=== PATIENT | female | born 1990 | race Caucasian/White ===

== ENCOUNTER 2017-03-18 20:26 | Emergency (ER) | payer MEDICAID, OTHER ==
[~2017-03-18] VITALS: Ht 157.5 cm; Wt 131.5 kg
[2017-03-18 20:30] VITALS: BP 120/99
[2017-03-18] MEDS ORDERED: AMMONIA INHALATION 0.33 ML AMP ONE (20:46)
[2017-03-18 21:08] LABS: BASOPHILS # (AUTO) 0.1 10^3/uL (0.0-0.1); BASOPHILS % (AUTO) 1 % (0-10); EOSINOPHILS # (AUTO) 0.3 10^3/uL (0.0-0.3); EOSINOPHILS % (AUTO) 2 % (0-10); LYMPHOCYTES # (AUTO) 2.8 X 10^3 (1.0-4.0); LYMPHOCYTES % (AUTO) 23 % (12-44); MEAN CORPUSCULAR HEMOGLOBIN 32 PG (25-34); MEAN CORPUSCULAR HGB CONC 34 G/DL (32-36); MEAN CORPUSCULAR VOLUME 93 FL (80-99); MEAN PLATELET VOLUME 10.3 FL (7.4-10.4); MONOCYTES # (AUTO) 1.1 X 10^3 (0.0-1.0); MONOCYTES % (AUTO) 9 % (0-12); NEUTROPHILS # (AUTO) 8.2 X 10^3 (1.8-7.8); NEUTROPHILS % (AUTO) 66 % (42-75); PLATELET COUNT 276 10^3/uL (130-400); RED CELL DISTRIBUTION WIDTH 12.1 % (10.0-14.5); WHITE BLOOD COUNT 12.3 10^3/uL (4.3-11.0)
[2017-03-18 21:10] LABS: BILIRUBIN,URINE NEGATIVE (NEGATIVE); KETONES,URINE 1+ (NEGATIVE); LEUKOCYTE ESTERASE ,URINE 1+ (NEGATIVE); NITRITE,URINE NEGATIVE (NEGATIVE); PH,URINE 6 (5-9); PROTEIN,URINE NEGATIVE (NEGATIVE); UROBILINOGEN,URINE 1 MG/DL (NORMAL)
[2017-03-18 21:27] LABS: ANION GAP 14 MMOL/L (5-14); BLOOD UREA NITROGEN 15 MG/DL (7-18); CARBON DIOXIDE 21 MMOL/L (21-32); CHLORIDE 106 MMOL/L (98-107); CREATININE SERUM 0.78 MG/DL (0.60-1.30); POTASSIUM 3.7 MMOL/L (3.6-5.0); SODIUM 141 MMOL/L (135-145)
[2017-03-18 21:28] LABS: ALANINE AMINOTRANSFERASE 23 U/L (0-55); ALCOHOL < 10 MG/DL (<10); ASPARTATE AMINO TRANSFERASE 13 U/L (5-34); BILIRUBIN,TOTAL 0.3 MG/DL (0.1-1.0); BUN/CREATININE RATIO 19; CALCIUM 9.2 MG/DL (8.5-10.1); GFR ESTIMATED > 60; GLUCOSE 98 MG/DL (70-105); SALICYLATE < 5.0 MG/DL (5.0-20.0); TOTAL PROTEIN 7.2 GM/DL (6.4-8.2)
[2017-03-18 21:40] LABS: ACETAMINOPHEN < 10 UG/ML (10-30)
--- NOTE | 2017-03-18 21:40 | ED General ---
General Chief Complaint: General Problems/Pain Stated Complaint: SEIZURE Nursing Triage Note: PT BROUGHT IN BY [facility] WITH C/O SEIZURE LIKE ACTIVITY. PT STATES SHE HAS NOT EVER BEEN DX WITH SEIZURE DISORDER. SHE DOES NOT TAKE SEIZURE MEDS. PT IS A&O X 4 UPON ARRIVAL AND DOES NOT APPEAR TO BE POSTICTAL AT THIS TIME. Nursing Sepsis Screen: No Definite Risk History of Present Illness Time Seen by Provider: 20:30 Initial Comments 27-year-old female reports possible seizure activity 4 today at home. She states she becomes unresponsive and then her does a sternal rub and she is able to wake up. She is being worked up by her primary care provider for seizure disorder versus other causes. She reports she was taking phentermine for 2 months this fall, she stopped it approximately 3-4 weeks ago. She denies alcohol or drug use. 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 Timing/Duration: 4-6 Hours Modifying Factors: improves with Other (stimulation) Associated Systoms: Denies Symptoms Allergies and Home Medications Allergies Coded Allergies: No Known Drug Allergies (Unverified , 03/18/17) Constitutional: no symptoms reported, see HPI Psychiatric/Neurological: See HPI, Tremors, Weakness All Other Systems Reviewed Negative Unless Noted: Yes Past Iwcgjoo-Exhakm-Cjogjh Hx Patient Social History Alcohol Use: Occasionally Uses Recreational Drug Use: No Smoking Status: Current Everyday Smoker Type Used: Cigarettes 2nd Hand Smoke Exposure: Yes Recent Foreign Travel: No Contact w/Someone Who Travel: No Recent Infectious Disease Expo: No Recent Hopitalizations: No Physical Abuse: No Sexual Abuse: No Seasonal Allergies Seasonal Allergies: No Surgeries History of Surgeries: Yes Surgeries: Gallbladder, Orthopedic Psychosocial Suicide Risk Score: 0 Reviewed Nursing Assessment Reviewed/Agree w Nursing PMH: Yes Physical Exam Vital Signs Vital Sign - Last 12Hours 03/18/17 20:30 Temp 96.4 Pulse 103 Resp 20 B/P (MAP) 120/99 (106) Pulse Ox 98 O2 Delivery Room Air Capillary Refill : Less Than 3 Seconds General Appearance: No Apparent Distress, WD/WN Eyes: Bilateral Eye Normal Inspection, Bilateral Eye PERRL, Bilateral Eye EOMI HEENT: PERRL/EOMI, TMs Normal, Normal ENT Inspection, Pharynx Normal Neck: Full Range of Motion, Normal Inspection, Non Tender, Supple Respiratory: Chest Non Tender, Lungs Clear, Normal Breath Sounds Cardiovascular: Regular Rate, Rhythm, No Edema, Normal Peripheral Pulses Neurologic/Psychiatric: Alert, Oriented x3, No Motor/Sensory Deficits, Normal Mood/Affect, home theater specialist II-XII Norm as Tested Skin: Normal Color, Warm/Dry, Other (multiple scratches and abrasions to both upper extremities. Patient denies injuries and states "they're itchy at times") Lymphatic: No Adenopathy Progress/Results/Core Measures Suspected Sepsis Recent Fever Within 48 Hours: No Infection Criteria Present: None New/Unexplained Altered Menta: No Sepsis Screen: No Definite Risk Sepsis Diagnosis: SIRS Temperature:96.4 Pulse: 103 Respiratory Rate: 20 Laboratory Tests 03/18/17 20:55: White Blood Count 12.3H Blood Pressure 120 /99 Mean: 106 Laboratory Tests 03/18/17 20:55: Creatinine 0.78, Platelet Count 276, Total Bilirubin 0.3 Results/Orders Lab Results Laboratory Tests Test 03/18/17 20:31 03/18/17 20:55 03/18/17 21:02 Range/Units Glucometer 115 H 70-110 MG/DL White Blood Count 12.3 H 4.3-11.0 10^3/uL Red Blood Count 4.90 4.35-5.85 10^6/uL Hemoglobin 15.5 11.5-16.0 G/DL Hematocrit 46 35-52 % Mean Corpuscular Volume 93 80-99 FL Mean Corpuscular Hemoglobin 32 25-34 PG Mean Corpuscular Hemoglobin Concent 34 32-36 G/DL Red Cell Distribution Width 12.1 10.0-14.5 % Platelet Count 276 130-400 10^3/uL Mean Platelet Volume 10.3 7.4-10.4 FL Neutrophils (%) (Auto) 66 42-75 % Lymphocytes (%) (Auto) 23 12-44 % Monocytes (%) (Auto) 9 0-12 % Eosinophils (%) (Auto) 2 0-10 % Basophils (%) (Auto) 1 0-10 % Neutrophils # (Auto) 8.2 H 1.8-7.8 X 10^3 Lymphocytes # (Auto) 2.8 1.0-4.0 X 10^3 Monocytes # (Auto) 1.1 H 0.0-1.0 X 10^3 Eosinophils # (Auto) 0.3 0.0-0.3 10^3/uL Basophils # (Auto) 0.1 0.0-0.1 10^3/uL Sodium Level 141 135-145 MMOL/L Potassium Level 3.7 3.6-5.0 MMOL/L Chloride Level 106 98-107 MMOL/L Carbon Dioxide Level 21 21-32 MMOL/L Anion Gap 14 5-14 MMOL/L Blood Urea Nitrogen 15 7-18 MG/DL Creatinine 0.78 0.60-1.30 MG/DL Estimat Glomerular Filtration Rate > 60 BUN/Creatinine Ratio 19 Glucose Level 98 70-105 MG/DL Calcium Level 9.2 8.5-10.1 MG/DL Total Bilirubin 0.3 0.1-1.0 MG/DL Aspartate Amino Transf (AST/SGOT) 13 5-34 U/L Alanine Aminotransferase (ALT/SGPT) 23 0-55 U/L Alkaline Phosphatase 77 40-136 U/L Total Protein 7.2 6.4-8.2 GM/DL Albumin 4.0 3.2-4.5 GM/DL TSH [place] Testing 1.48 0.35-4.94 UIU/ML Salicylates Level < 5.0 L 5.0-20.0 MG/DL Acetaminophen Level < 10 L 10-30 UG/ML Serum Alcohol < 10 <10 MG/DL Urine Color YELLOW Urine Clarity CLEAR Urine pH 6 5-9 Urine Specific [place] 1.025 H 1.016-1.022 Urine Protein NEGATIVE NEGATIVE Urine Glucose (UA) NEGATIVE NEGATIVE Urine Ketones 1+ H NEGATIVE Urine Nitrite NEGATIVE NEGATIVE Urine Bilirubin NEGATIVE NEGATIVE Urine Urobilinogen 1 NORMAL MG/DL Urine Leukocyte Esterase 1+ H NEGATIVE Urine RBC (Auto) 2+ H NEGATIVE Urine RBC NONE /HPF Urine WBC 2-5 /HPF Urine Squamous Epithelial Cells 10-25 H /HPF Urine Crystals PRESENT H /LPF Urine Amorphous Sediment FEW MENDY URATES H /LPF Urine Bacteria NONE /HPF Urine Casts NONE /LPF Urine Mucus NEGATIVE /LPF Urine Culture Indicated NO Urine Opiates Screen NEGATIVE NEGATIVE Urine Oxycodone Screen NEGATIVE NEGATIVE Urine Methadone Screen NEGATIVE NEGATIVE Urine Propoxyphene Screen NEGATIVE NEGATIVE Urine Barbiturates Screen NEGATIVE NEGATIVE Ur Tricyclic Antidepressants Screen NEGATIVE NEGATIVE Urine Phencyclidine Screen NEGATIVE NEGATIVE Urine Amphetamines Screen NEGATIVE NEGATIVE Urine Methamphetamines Screen NEGATIVE NEGATIVE Urine Benzodiazepines Screen NEGATIVE NEGATIVE Urine Cocaine Screen NEGATIVE NEGATIVE Urine Cannabinoids Screen NEGATIVE NEGATIVE My Orders Orders - ALLA,JESSICA PHOTO GRAPHICS LIBRARIAN Acetaminophen (03/18/17 20:37) Alcohol (03/18/17 20:37) Cbc With Automated Diff (03/18/17 20:37) Comprehensive Metabolic Panel (03/18/17 20:37) Salicylate (03/18/17 20:37) Thyroid Analyzer (03/18/17 20:37) Ua Culture If Indicated (03/18/17 20:37) Urine Bedside (03/18/17 20:37) Accucheck Stat ONCE (03/18/17 20:37) Ammonia Inhalation (Ammonia Inhalation) (03/18/17 20:46) Drug Screen Stat (Urine) (03/18/17 20:49) Vital Signs/I&O Vital Sign - Last 12Hours 03/18/17 20:30 Temp 96.4 Pulse 103 Resp 20 B/P (MAP) 120/99 (106) Pulse Ox 98 O2 Delivery Room Air Capillary Refill : Less Than 3 Seconds Blood Pressure Mean: 106 Point of Care Testing Finger Stick Blood Glucose: 115 Urine -Bedside: Negative Progress Note : Time: 20:30 Progress Note Initial evaluation completed by myself and Dr. Bartholomew. Recommended labs and reevaluation. 2044 while labs were being drawn, the patient becomes unresponsive. She appeared in no distress. Upon entering the room a stated her name several times and use a sternal rub and told her to wake up, she followed all commands and open her eyes spontaneously. She is able to state the date and year. She had no period of incontinence and she was not postictal. 2054 patient able to ambulate bathroom with no deficits. 2129 patient sitting in bed, talking to family and playing with children, using her phone. 2139 no further seizure-like activity or sedation noted. Patient reports be feeling well. All labs within normal limits. Discussed with her to stop taking Ambien, try Tylenol PM instead. Will use Medrol Dosepak for rash to upper extremities. Discharge planning and return precautions reviewed with her. All questions answered.. Departure Impression Impression: Primary Impression: Conversion disorder Disposition: HOME, SELF-CARE Condition: Improved Departure-Patient Inst. Decision time for Depature: 21:45 Patient Instructions: Conversion Disorder Add. Discharge Instructions: Increase water intake. No driving until follow-up with your primary care provider. Return to emergency department for new problems or concerns. All discharge instructions reviewed with patient and/or family. Voiced understanding. Scripts Prednisone (Prednisone) 10 Mg Tab.ds.pk 10 MG PO UD, #1 PKG Prov: JESSICA GOLD 03/18/17 JESSICA GOLD Mar 18, 2017 21:40
[2017-03-18] MEDS ORDERED: PRED10TA22 PO (21:58)
== END 2017-03-18 21:56 | disposition home or self-care (01) ==
LOC: ER 20:28
DX: G40.909 Epilepsy, unspecified, not intractable, without status epilepticus (principal); F17.210 Nicotine dependence, cigarettes, uncomplicated
CPT/HCPCS: 36415; 80053; 80306; 80320; 80329; 81000; 82962; 84443; 84703; 85025; 85027; 99283

== ENCOUNTER 2018-07-30 21:21 | Inpatient (IN) | payer MEDICAID ==
[~2018-07-30] VITALS: Ht 157.5 cm; Wt 140.9 kg
[2018-07-30 21:15] VITALS: BP 119/58
[~2018-07-30 21:21] MED LIST: PRED10TA22 PO
[2018-07-30] MEDS ORDERED: AMPICILLIN FOR IV USE 2,000 MG in WATER (STERILE) FOR INJECTION 14.8 ML IV SCH (21:27)
[2018-07-30] MEDS ORDERED: DINOPROSTONE 10 MG (CERVIDIL) INSERT PV ONE (21:30)
[2018-07-30] MEDS ORDERED: MINERAL OIL CONCENTRATE 99.9% 15 ML UDC TOP PRN (21:30)
[2018-07-30] MEDS: D5 LR IV SOLUTION 1,000 ML IV SCH (21:40)
[2018-07-30 22:25] LABS: BILIRUBIN,URINE NEGATIVE (NEGATIVE); CLARITY,URINE CLEAR; COLOR,URINE YELLOW; GLUCOSE, URINE (UA) NEGATIVE (NEGATIVE); KETONES,URINE 1+ (NEGATIVE); LEUKOCYTE ESTERASE ,URINE 1+ (NEGATIVE); NITRITE,URINE NEGATIVE (NEGATIVE); PH,URINE 6 (5-9); PROTEIN,URINE 2+ (NEGATIVE); UROBILINOGEN,URINE 4 MG/DL (NORMAL)
[2018-07-30 22:32] LABS: BASOPHILS % (AUTO) 0 % (0-10); EOSINOPHILS # (AUTO) 0.1 10^3/uL (0.0-0.3); EOSINOPHILS % (AUTO) 1 % (0-10); HEMATOCRIT 36 % (35-52); HEMOGLOBIN 12.6 G/DL (11.5-16.0); LYMPHOCYTES # (AUTO) 1.6 X 10^3 (1.0-4.0); LYMPHOCYTES % (AUTO) 14 % (12-44); MEAN CORPUSCULAR HEMOGLOBIN 33 PG (25-34); MEAN CORPUSCULAR HGB CONC 35 G/DL (32-36); MEAN CORPUSCULAR VOLUME 95 FL (80-99); MEAN PLATELET VOLUME 10.7 FL (7.4-10.4); MONOCYTES # (AUTO) 0.9 X 10^3 (0.0-1.0); MONOCYTES % (AUTO) 8 % (0-12); NEUTROPHILS # (AUTO) 8.7 X 10^3 (1.8-7.8); NEUTROPHILS % (AUTO) 76 % (42-75); PLATELET COUNT 237 10^3/uL (130-400); RED CELL DISTRIBUTION WIDTH 12.8 % (10.0-14.5); WHITE BLOOD COUNT 11.4 10^3/uL (4.3-11.0)
[2018-07-30 22:34] LABS: BACTERIA,URINE TRACE /HPF; RBC,URINE RARE /HPF; SQUAMOUS EPITHELIAL CELL,UR >50 /HPF; WBC,URINE RARE /HPF
[2018-07-31] VITALS (82 sets, daily range): BP systolic 102–152; BP diastolic 55–100
[2018-07-31] MEDS: D5 LR IV SOLUTION 1,000 ML IV SCH ×3 (02:15→17:45)
[2018-07-31] MEDS ORDERED: AMPICILLIN FOR IV USE 2,000 MG VIAL ONE (04:00)
[2018-07-31] MEDS ORDERED: WATER (STERILE) FOR INJECTION 20 ML ONE (04:01)
[2018-07-31] MEDS: OXYTOCIN/NORMAL SALINE 500 ML IV SCH (04:15)
[2018-07-31] MEDS ORDERED: SUFENTA 0.6MCG/ML BUPIVA 0.125 100 ML ONE (05:30)
[2018-07-31] MEDS ORDERED: BUPIVACAINE 0.25% 30 ML (SENSORCAINE) VIAL ONE (05:56)
[2018-07-31] MEDS ORDERED: fentaNYL INJECTION 100 MCG/2 ML AMP ONE (05:56)
[2018-07-31] MEDS ORDERED: LACTATED RINGERS 1,000 ML IV ONE ×2 (06:26)
[2018-07-31] MEDS ORDERED: ONDANSETRON 4 MG/2 ML (SDV) Z0FRAN IV PRN (06:30)
[2018-07-31] MEDS ORDERED: NALOXONE 0.4 MG/ML 1 ML (NARCAN) VIAL IV PRN (06:30)
--- NOTE | 2018-07-31 07:00 | NUR ---
REPORT FROM VALENTINA JEREZ
--- NOTE | 2018-07-31 07:07 | History & Physical-OB/GYN ---
History of Present Illness History of Present Illness Reason for visit/HPI Cervidil Cervical Ripening followed by Pitocin Induction of Labor Date of Admission July 30, 2018 at 21:21 Date Seen by a Provider: July 31, 2018 Time Seen by a Provider: 07:00 I consulted on this patient on 07/31/18 07:02 Attending Physician Randall Lemus DO Admitting Physician Randall Lemus DO Consult Allergies and Home Medications Allergies Coded Allergies: No Known Drug Allergies (Unverified , 03/18/17) Home Medications Prednisone 10 Mg Tab.ds.pk, 10 MG PO UD Prescribed by: JESSICA GOLD on 03/18/17 2002 Patient Home Medication List Home Medication List Reviewed: Yes (Keppra, Lamictal, Vitamins) Past Eczuulg-Qspgcv-Taabqj Hx Patient Social History Marrital Status: single Number of Children: 1 Number of living children: 1 Employed/Student: employed Alcohol Use: Denies Use Recreational Drug Use: No Type Used: Cigarettes 2nd Hand Smoke Exposure: Yes Physical Abuse Screen: No Sexual Abuse: No Recent Hopitalizations: No Seasonal Allergies Seasonal Allergies: No Surgeries Yes Gallbladder, Orthopedic Respiratory No Cardiovascular No Neurological Yes Seizure Disorder 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 System : Yes Expected Date of Delivery: August 04, 2018 Hx : 2 Hx Para: 1 Hx Total # of Abortions (Spona: 0 Hx 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 Disorders: No Sexually Transmitted Disease: No HIV/AIDS: No Genitourinary No Gastrointestinal No Musculoskeletal No Endocrine History of Endocrine Disorders: No HEENT History of HEENT Disorders: No Cancer No Psychosocial History of Psychiatric Problem: No Integumentary History of Skin or Integumenta: No Blood Transfusions History of Blood Disorders: No Review of Systems Constitutional: see HPI : Yes Expected Date of Delivery: August 04, 2018 Control/STD Prophylaxis: None Psychiatric/Neurological: Seizure Physical Exam Physical Exam Vital Signs Vital Signs Date Time Temp Pulse Resp B/P (MAP) Pulse Ox O2 Delivery O2 Flow Rate FiO2 07/31/18 05:20 18 /66 07/31/18 05:05 75 18 128/66 (86) 07/31/18 04:55 82 18 130/74 (92) 07/31/18 04:40 78 18 102/58 (73) 07/31/18 04:25 98.1 88 18 115/61 (79) 07/31/18 00:20 98.1 94 18 139/83 (101) 07/30/18 21:15 98.3 96 18 119/58 (78) Capillary Refill : Labs Laboratory Tests 07/30/18 21:40: White Blood Count 11.4H, Red Blood Count 3.80L, Hemoglobin 12.6, Hematocrit 36, Mean Corpuscular Volume 95, Mean Corpuscular Hemoglobin 33, Mean Corpuscular Hemoglobin Concent 35, Red Cell Distribution Width 12.8, Platelet Count 237, Mean Platelet Volume 10.7H, Neutrophils (%) (Auto) 76H, Lymphocytes (%) (Auto) 14, Monocytes (%) (Auto) 8, Eosinophils (%) (Auto) 1, Basophils (%) (Auto) 0, Neutrophils # (Auto) 8.7H, Lymphocytes # (Auto) 1.6, Monocytes # (Auto) 0.9, Eosinophils # (Auto) 0.1, Basophils # (Auto) 0.0 07/30/18 22:12: Urine Color YELLOW, Urine Clarity CLEAR, Urine pH 6, Urine Specific [place] 1.020, Urine Protein 2+H, Urine Glucose (UA) NEGATIVE, Urine Ketones 1+H, Urine Nitrite NEGATIVE, Urine Bilirubin NEGATIVE, Urine Urobilinogen 4H, Urine Leukocyte Esterase 1+H, Urine RBC (Auto) 1+H, Urine RBC RARE, Urine WBC RARE, Urine Squamous Epithelial Cells >50H, Urine Crystals NONE, Urine Bacteria TRACE , Urine Casts NONE, Urine Mucus SMALLH, Urine Culture Indicated NO General Appearance: No Apparent Distress, WD/WN Respiratory: Lungs Clear, Normal Breath Sounds Cardiovascular: Regular Rate, Rhythm, No Edema Abdominal: normal bowel sounds, non tender Labia: WNL Labia Mass: soft Vagina: WNL Cervix: WNL Cervix OS: open Uterus: Other (Gravid) Extremity: Non Tender Assessment/Plan Assessment and Plan Intrauterine at 39 3/7 weeks 2. History of Seizure Disorder 3. Unknown GBS Status Admission Diagnosis Intrauterine at 39 3/7 weeks 2. History of Seizure Disorder 3. Unknown GBS Status Admission Status: Inpatient Order (span 2 midnights) Reason for Inpatient Admission: Cervidil Cervical Ripening followed by Pitocin Induction of Labor. Clinical Quality Measures DVT/VTE Risk/Contraindication: Risk Factor Score Per Nursin RFS Level Per Nursing on Admit: 3=RANDALL Robert DO July 31, 2018 07:07
[2018-07-31] MEDS ORDERED: LEVE250T18 PO (07:56)
[2018-07-31] MEDS ORDERED: LAMO25TA75 PO (07:57)
[2018-07-31] MEDS: AMPICILLIN FOR IV USE 1,000 MG in WATER (STERILE) FOR INJECTION 7.4 ML IV SCH ×4 (08:25→20:48)
[2018-07-31] MEDS: CATHETER FLUSH 10 ML SYR IV SCH ×2 (11:15→15:25)
[2018-07-31] MEDS ORDERED: PATIENT MAY USE OWN MEDS, ALL MC SCH (11:15)
[2018-07-31] MEDS ORDERED: LEVETIRACETAM PO SCH (13:00)
[2018-07-31] MEDS: EPIDURAL (SUFENTA 0.6MCG/ML BUPIVA 0.125%) 100 ML BAG EPI PRN ×2 (13:33→21:36)
[2018-07-31] MEDS: lamoTRIgine 25 MG (LaMICtal) TAB PO SCH (13:36)
[2018-07-31] MEDS: LEVETIRACETAM 500 MG (KEPPRA) TAB PO SCH ×2 (15:25→20:48)
[2018-07-31] MEDS ORDERED: LEVETIRACETAM 250 MG PO SCH (21:00)
[2018-08-01] VITALS (17 sets, daily range): BP systolic 112–160; BP diastolic 56–95
[2018-08-01] MEDS: CATHETER FLUSH 10 ML SYR IV SCH
[2018-08-01] MEDS ORDERED: LIDOCAINE 1% INJ 20 ML 20 ML VIAL ONE (00:45)
[2018-08-01] MEDS: AMPICILLIN FOR IV USE 1,000 MG in WATER (STERILE) FOR INJECTION 7.4 ML IV SCH (00:46)
[2018-08-01] MEDS: OXYTOCIN/NORMAL SALINE 500 ML IV SCH (01:20)
--- NOTE | 2018-08-01 01:40 | OB Labor & Delivery Record ---
Vag Delivery Note Vag Delivery Note Date of Delivery: 08/01/18 Preoperative Diagnosis: Rema Chin is a (28 /Para 2 / 1,Gestational Age (wks)39with [] Postoperative Diagnosis: Same Surgeon: TAMIKA SHEIKH Associate Professor Of Kinesiology: [None] Anesthesia: [Epidural] Delivery Type: [Normal Spontaneous Vaginal Delivery with a Second Degree Perineal Laceration and Standard Repair] Findings: [In the ISIAH presentation] Viable [Male] infant, apgars [9, 9], weight [7 lb 1 oz] Lacerations:Second degree perineal with repair with 3-0 Vicryl in standard fashion Intact placenta with 3 vessel cord. No nuchal cord, body cord or shoulder dystocia Pitocin given for hemorrhage prophylaxis Estimated Blood Loss: [300] ml Complications: None Condition: Stable Description of Procedure: The patient is a 28 year old female who presented [Cervidil Cervical Ripening followed by Pitocin Induction of Labor]. She was admitted and informed consent was obtained. Her labor course was remarkable for [an unusually long labor] She progressed to complete dilatation and began to push. She was then set up for delivery. The 's head was delivered atraumatically in the [ISIAH] position. The shoulders and remainder of the ' s body were then delivered without difficulty. Upon delivery, the head was held below the level of the perineum and the mouth and nares were bulb suctioned. The cord was doubly clamped and cut and the infant was handed off to the pediatric staff. An intact placenta with 3-vessel cord delivered via Obi and there was found to be minimal bleeding.~ Vigorous fundal massage was performed and the fundus was found to be firm. IV oxytocin was given. Examination of the vagina and perineum revealed a [second degree perineal] laceration repaired in the usual fashion with 3-0 vicryl suture. Following the repair, sponge, instrument and needle counts were correct. Mom and baby were both in stable condition in the labor suite. Vitals - Labs Vital Signs - I&O Vital Signs Date Time Temp Pulse Resp B/P (MAP) Pulse Ox O2 Delivery O2 Flow Rate FiO2 08/01/18 00:15 77 20 160/95 (116) Room Air 08/01/18 00:01 77 20 137/86 (103) Room Air 07/31/18 23:45 82 20 143/90 (107) Room Air 07/31/18 23:30 82 20 151/92 (111) Room Air 07/31/18 23:14 76 20 152/90 (110) Room Air 07/31/18 22:30 80 20 124/75 (91) Room Air 07/31/18 22:15 76 20 137/81 (99) Room Air 07/31/18 21:55 79 20 124/69 (87) Room Air 07/31/18 21:45 71 20 134/83 (100) Room Air 07/31/18 21:30 96.3 100 20 136/81 (99) Room Air 07/31/18 21:15 66 20 128/85 (99) Room Air 07/31/18 21:00 68 20 138/85 (102) Room Air 07/31/18 20:45 81 20 148/95 (112) Room Air 07/31/18 20:29 91 20 142/79 (100) Room Air 07/31/18 20:10 79 20 118/75 (89) Room Air 07/31/18 19:45 81 20 146/66 (92) Room Air 07/31/18 19:30 76 20 134/84 (101) Room Air 07/31/18 19:20 96.9 79 20 137/81 (99) Room Air 07/31/18 16:15 84 20 126/71 (89) Room Air 07/31/18 16:00 20 Room Air 07/31/18 15:45 98 20 134/84 (101) Room Air 07/31/18 15:30 20 Room Air 07/31/18 15:15 76 20 127/70 (89) Room Air 07/31/18 15:00 88 20 128/71 (90) Room Air 07/31/18 14:45 80 20 130/69 (89) Room Air 07/31/18 14:30 89 20 127/70 (89) Room Air 07/31/18 14:15 88 20 133/72 (92) Room Air 07/31/18 14:00 97.8 86 20 138/77 (97) Room Air 07/31/18 13:45 79 20 136/74 (94) Room Air 07/31/18 13:30 73 20 126/73 (90) Non Rebreather 10.00 07/31/18 13:15 71 20 121/62 (81) Non Rebreather 10.00 07/31/18 13:00 75 20 116/60 (78) Non Rebreather 10.00 07/31/18 12:45 82 20 119/58 (78) 07/31/18 12:30 83 20 114/58 (76) 07/31/18 12:15 90 20 120/69 (86) 07/31/18 12:00 81 20 132/78 (96) 07/31/18 11:55 90 20 113/68 (83) 07/31/18 11:45 84 20 129/84 (99) 07/31/18 11:30 93 20 135/77 (96) 98 07/31/18 11:15 81 20 117/61 (79) 97 07/31/18 11:00 90 20 106/59 (75) 97 07/31/18 10:45 82 20 117/61 (79) 96 07/31/18 10:30 96 20 115/59 (77) 98 07/31/18 10:15 87 20 103/56 (72) 97 07/31/18 10:00 98.1 82 20 104/58 (73) 97 07/31/18 09:45 83 20 103/56 (72) 96 07/31/18 09:30 79 20 110/55 (73) 97 07/31/18 09:15 90 18 123/68 (86) 98 07/31/18 09:00 83 18 111/57 (75) 97 07/31/18 08:45 88 18 128/57 (80) 98 07/31/18 08:30 87 18 111/56 (74) 97 07/31/18 08:15 86 18 110/58 (75) 95 07/31/18 08:00 92 18 113/58 (76) 97 07/31/18 07:45 83 18 117/59 (78) 97 07/31/18 07:30 98.4 84 18 106/55 (72) 100 07/31/18 07:20 87 18 106/57 (73) 99 07/31/18 07:05 86 18 116/67 (83) 99 07/31/18 07:00 93 18 114/59 (77) 97 07/31/18 06:55 83 18 112/64 (80) 98 07/31/18 06:50 86 18 116/67 (83) 99 07/31/18 06:45 85 18 119/68 (85) 99 07/31/18 06:40 86 18 116/63 (80) 98 07/31/18 06:35 90 18 120/71 (87) 99 07/31/18 06:30 85 18 128/67 (87) 99 07/31/18 06:25 88 18 119/65 (83) 99 07/31/18 06:20 85 18 145/100 (115) 99 07/31/18 06:15 81 18 144/96 (112) 99 07/31/18 06:10 86 18 143/100 (114) 99 07/31/18 06:05 80 18 148/99 (115) 100 07/31/18 06:00 80 18 148/99 (115) 98 07/31/18 05:55 85 18 118/65 (82) 99 07/31/18 05:40 81 18 99 07/31/18 05:20 18 /66 07/31/18 05:05 75 18 128/66 (86) 07/31/18 04:55 82 18 130/74 (92) 07/31/18 04:40 78 18 102/58 (73) 07/31/18 04:25 98.1 88 18 115/61 (79) I & O 08/01/18 07:00 Intake Total 2022.2 ml Output Total 450 ml Balance 1572.2 ml TAMIKA SHEIKH DO August 01, 2018 01:40
[2018-08-01] MEDS ORDERED: BENZOCAINE/MENTHOL (DERMOPLAST) 56 ML CAN TP PRN (01:45)
[2018-08-01] MEDS ORDERED: WITCH HAZEL(TUCKS) 40 EA JAR TOP PRN (01:45)
[2018-08-01] MEDS ORDERED: TETANUS,DIPTH,PERTUSS P/F (BOOSTRIX) 0.5 ML VIAL IM ONE (01:45)
[2018-08-01] MEDS ORDERED: MEASLES,MUMPS,RUBELLA 1 EA INJ SQ ONE (01:45)
[2018-08-01] MEDS: IBUPROFEN 800 MG (MOTRIN) TAB PO SCH ×3 (04:00→18:40)
--- NOTE | 2018-08-01 05:00 | NUR ---
Pt up to void and moved to PP rm [id number], pt oriented to room and dietary order process
[2018-08-01] MEDS ORDERED: CATHETER FLUSH 10 ML SYR IV SCH (06:00)
--- NOTE | 2018-08-01 07:00 | NUR ---
REPORT FROM JUAN M JEREZ.
--- NOTE | 2018-08-01 09:50 | NUR ---
INITIAL ASSESSMENT COMPLETED AT BEDSIDE, NO DISTRESS NOTED, VSS, SEE INTERVENTIONS FOR DETAILED ASSESSMENTS. IV DC'D.
[2018-08-01] MEDS: LEVETIRACETAM 500 MG (KEPPRA) TAB PO SCH ×3 (09:53→20:56)
[2018-08-01] MEDS: lamoTRIgine 25 MG (LaMICtal) TAB PO SCH (09:53)
--- NOTE | 2018-08-01 10:30 | NUR ---
PT UP TO SHOWER, S/O AT SIDE.
--- NOTE | 2018-08-01 13:35 | Anesthesia-Regional Post-Op ---
Regional Patient Condition Mental Status: Alert, Oriented x3 Circulation: Same as Pre-Op Headache: Absent Sensation: Full Recovery Motor Block: Absent Post Op Complications Complications None Follow Up Care/Instructions Patient Instructions None needed. Anesthesia/Patient Condition Patient is doing well, no complaints, stable vital signs, no apparent adverse anesthesia problems. No complications reported per nursing. MARQUES ESTRADA CRNA August 01, 2018 13:35
--- NOTE | 2018-08-01 16:41 | NUR ---
PT UP AMBULATING IN HALLWAYS, S/O IN ROOM WITH INFANT IN ARMS.
--- NOTE | 2018-08-01 18:40 | NUR ---
PT SITTING UP AT THE SIDE OF THE BED, EATING. S/O AT THE BEDSIDE. ROUTINE MOTRIN GIVEN PO; SEE EMAR FOR FURTHER. PT DENIES ANY NEEDS AT THIS TIME. CALL LIGHT WITHIN REACH.
[2018-08-02 02:15] VITALS: BP 128/91
[2018-08-02] MEDS: IBUPROFEN 800 MG (MOTRIN) TAB PO SCH ×2 (02:19→10:15)
[2018-08-02 06:37] LABS: BASOPHILS % (AUTO) 0 % (0-10); EOSINOPHILS # (AUTO) 0.3 10^3/uL (0.0-0.3); EOSINOPHILS % (AUTO) 3 % (0-10); HEMATOCRIT 34 % (35-52); HEMOGLOBIN 11.4 G/DL (11.5-16.0); LYMPHOCYTES # (AUTO) 2.5 X 10^3 (1.0-4.0); LYMPHOCYTES % (AUTO) 23 % (12-44); MEAN CORPUSCULAR HEMOGLOBIN 33 PG (25-34); MEAN CORPUSCULAR HGB CONC 33 G/DL (32-36); MEAN CORPUSCULAR VOLUME 97 FL (80-99); MEAN PLATELET VOLUME 10.2 FL (7.4-10.4); MONOCYTES # (AUTO) 0.7 X 10^3 (0.0-1.0); MONOCYTES % (AUTO) 7 % (0-12); NEUTROPHILS # (AUTO) 7.2 X 10^3 (1.8-7.8); NEUTROPHILS % (AUTO) 67 % (42-75); PLATELET COUNT 185 10^3/uL (130-400); RED CELL DISTRIBUTION WIDTH 13.2 % (10.0-14.5); WHITE BLOOD COUNT 10.8 10^3/uL (4.3-11.0)
[2018-08-02 07:35] VITALS: BP 125/79
--- NOTE | 2018-08-02 08:16 | NUR ---
DR. FERNANDEZS ON THE UNIT, MAKING ROUNDS.
--- NOTE | 2018-08-02 08:19 | Discharge Inst-Women's Service ---
Discharge Inst-Women's Serv Depart Medication/Instructions New, Converted or Re-Newed RX: RX Given to Pt/Family Final Diagnosis Intrauterine at 39 weeks Seizure Disorder GBS Positive Activity Activity: Activity as Tolerated Driving Instructions: No Driving for 1 Week NO SMOKING: NO SMOKING Nothing Inside Vagina: No Douching, No Kerrick, No Tampons Diet Discharge Diet: No Restrictions Symptoms to Report to : Bleeding Excessive, Fever Over 101 Degrees F, Vaginal Bleeding Increase, Vaginal Discharge Foul For Any Problems or Questions: Contact Your Physician Skin/Wound Care Bathing Instructions: Jonnie Shower TAMIKA SHEIKH DO August 02, 2018 08:19
--- NOTE | 2018-08-02 08:24 | Discharge Summary ---
Diagnosis/Chief Complaint Date of Admission July 30, 2018 at 21:21 Date of Discharge August 02, 2018 Discharge Date: August 02, 2018 Discharge Time: 08:25 Admission Diagnosis Admission Diagnosis Intrauterine at 39 weeks GBS Positive Seizure Disorder Discharge Diagnosis Intrauterine at 39 weeks GBS Positive Seizure Disorder Reason Hospital Visit Cervidil Cervical Ripening followed by Pitocin Induction of Labor Discharge Summary Hospital Course Was the Problem List Reviewed?: Yes Hospital Course Ms. Chin was admitted and started on Cervidil for cervical ripening. Then, she was started on IV Pitocin for induction. She received an epidural for antepartum pain management. I artificially rupture her membranes. She progressed to complete dilation, subsequently, delivered a healthy viable male over a second degree perineal laceration, which was repaired. The remainder of her hospitalization was unremarkable. Comfort measures were instituted along with pain management. Her vital signs remained stable throughout her hospitalization. She will be discharged to home with instructions, prescriptions, and a follow up appointment. Labs Laboratory Tests 07/30/18 21:40: White Blood Count 11.4H, Red Blood Count 3.80L, Mean Platelet Volume 10.7H, Neutrophils (%) (Auto) 76H, Neutrophils # (Auto) 8.7H 07/30/18 22:12: Urine Protein 2+H, Urine Ketones 1+H, Urine Urobilinogen 4H, Urine Leukocyte Esterase 1+H, Urine RBC (Auto) 1+H, Urine Squamous Epithelial Cells >50H, Urine Mucus SMALLH 08/02/18 06:25: Red Blood Count 3.51L, Hemoglobin 11.4L, Hematocrit 34L Procedures None. Discharge Physical Examination Allergies: Coded Allergies: No Known Drug Allergies (Unverified , 03/18/17) Vitals & I&Os Vital Signs Date Time Temp Pulse Resp B/P (MAP) Pulse Ox O2 Delivery O2 Flow Rate FiO2 08/02/18 02:15 98.3 98 18 128/91 (103) 98 Room Air 07/31/18 13:30 10.00 Discharge Home Medications Reviewed and agree with Discharge Medication list on patient's Discharge Instruction sheet Instructions to Patient/Family Please see electronic discharge instructions given to patient. Clinical Quality Measures DVT/VTE Risk/Contraindication: Risk Factor Score Per Nursin RFS Level Per Nursing on Admit: 3=High TAMIKA SHEIKH DO August 02, 2018 08:24
[2018-08-02] MEDS ORDERED: IBUP-1780 PO (08:29)
[2018-08-02] MEDS ORDERED: OXC5T PO (08:29)
[2018-08-02] MEDS ORDERED: DOCU-143 PO (08:29)
--- NOTE | 2018-08-02 09:00 | NUR ---
CM/SS responded to consult for SS. Family reports that they have all necessary baby needs ie) crib, car seat, diapers, etc. The family reported that they moved to [place] in Apr and came back for delivery due to not liking who she was seeing for a Dr. there. MOB reported that she has WIC. FOB was holding and feeding baby a bottle while this information writer was in room, bonding and interactions with baby were appropriate. Family did not report any other needs.
[2018-08-02] MEDS: LEVETIRACETAM 500 MG (KEPPRA) TAB PO SCH ×2 (10:15→14:28)
[2018-08-02] MEDS: lamoTRIgine 25 MG (LaMICtal) TAB PO SCH (10:15)
--- NOTE | 2018-08-02 10:15 | NUR ---
MOM HOLDING INFANT, MEDS GIVEN PO; SEE EMAR FOR FURTHER. NO FURTHER NEEDS VOICED.
--- NOTE | 2018-08-02 10:46 | NUR ---
PT IN BED, RESTING, AT THE BEDSIDE. PT OK'S FOR DISCHARGE INSTRUCTIONS TO BE GIVEN AT THIS TIME. DISCHARGE PAPERS PROVIDED AND REVIEWED WITH PT, PT VERBALIZES UNDERSTANDING AND DENIES ANY QUESTIONS AT THIS TIME. PAPER SIGNED. RX'S AND FOLLOW UP APPOINTMENT CARD ALSO PLACED INTO DISCHARGE FOLDER. NO CURRENT NEEDS VOICED, S/O TO BEDSIDE. CALL LIGHT WITHIN REACH.
[2018-08-02 14:24] VITALS: BP 130/74
--- NOTE | 2018-08-02 14:30 | NUR ---
MOM 89 AT THE BEDSIDE, PREPPING TO TAKE PHOTOS. PT SITTING AT THE SIDE OF THE BED, MEDS GIVEN PO; SEE EMAR FOR FURTHER. NO FURTHER NEEDS VOICED.
--- NOTE | 2018-08-02 16:35 | NUR ---
PT DISCHARGED FROM -[facility] TO [facility] AMBULATORY IN STABLE CONDITION ACC BY DONN WHITTEN, DIRECTOR.
== END 2018-08-02 16:35 | disposition home or self-care (01) | DRG 807 ==
LOC: LDRP 21:21
PROVIDERS: ADMIT Obstetrics & Gynecology; ATTEND Obstetrics & Gynecology
PROC: 0KQM0ZZ Repair Perineum Muscle, Open Approach (ICD-10-PCS; principal; 2018-08-01)
PROC: 10E0XZZ Delivery of Products of Conception, External Approach (ICD-10-PCS; 2018-08-01)
DX: O99.353 Diseases of the nervous system complicating pregnancy, third trimester (principal); G40.909 Epilepsy, unspecified, not intractable, without status epilepticus; O70.1 Second degree perineal laceration during delivery; O99.333 Smoking (tobacco) complicating pregnancy, third trimester; F17.210 Nicotine dependence, cigarettes, uncomplicated; O99.820 Streptococcus B carrier state complicating pregnancy; O99.213 Obesity complicating pregnancy, third trimester; E66.01 Morbid (severe) obesity due to excess calories; Z3A.39 39 weeks gestation of pregnancy; Z37.0 Single live birth
CPT/HCPCS: 36415; 81000; 85025; 86850; 86900; 86901

== ENCOUNTER 2019-01-10 22:02 | Emergency (ER) | payer SELFPAY ==
[~2019-01-10] VITALS: Ht 162.5 cm; Wt 120.0 kg
[~2019-01-10 22:02] MED LIST changes: +DOCU-143 PO; +IBUP-1780 PO; +LAMO25TA75 PO; +LEVE250T18 PO; +OXC5T PO
[2019-01-10] MEDS ORDERED: DEXAMETHASONE 10 MG/ML (DECADRON) 1 ML VIAL IM STA (23:09)
[2019-01-10] MEDS ORDERED: PEN G BENZ (BICILLIN LA) 1.2 M UN/2 ML SYR IM STA (23:09)
--- NOTE | 2019-01-10 23:19 | ED General ---
General Chief Complaint: Fever-Adult/Adol Stated Complaint: FEVER Nursing Triage Note: PT AMBULATE TO ROOM FS05 WITH C/O FEVER AND SOB STARTING TUESDAY NIGHT. PT STATES THAT HER "GLANDS IN MY NECK ARE SWOLLEN SO I CAN'T BREATHE". PT TOOK 800MG IBUPROFEN AT 1800. PT STATES DID NOT RECHECK TEMP PRIOR TO ARRIVAL AT ED. Nursing Sepsis Screen: No Definite Risk Source of Information: Patient History of Present Illness Date Seen by Provider: Jan 10, 2019 Time Seen by Provider: 22:54 Initial Comments 28 yo F presents with throat pain and swelling that has been going on since Tuesday night. She had fever up to 100.3 this afternoon and took Ibuprofen for it. She has chills in addition to low grade fever. She denies any nausea/vomiting. 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 She has a mild cough as well. Allergies and Home Medications Allergies Coded Allergies: No Known Drug Allergies (Unverified , 03/18/17) Home Medications Docusate Sodium 100 Mg Capsule, 100 MG PO DAILY Prescribed by: TAMIKA SHEIKH on 08/02/18828 Ibuprofen 800 Mg Tablet, 800 MG PO Q8HR PRN for ABDOMINAL PAIN Prescribed by: TAMIKA SHEIKH on 08/02/18828 Lamotrigine 25 Mg Tablet, 25 MG PO DAILY, (Reported) Levetiracetam 250 Mg Tablet, 250 MG PO TID, (Reported) Oxycodone Hcl 5 Mg Tab, 5 MG PO Q6H PRN for PAIN-SEVERE Prescribed by: TAMIKA SHEIKH on 08/02/18828 Patient Home Medication List Home Medication List Reviewed: Yes Review of Systems Review of Systems Constitutional: chills, fever, malaise EENTM: throat pain, throat swelling Respiratory: cough Cardiovascular: no symptoms reported Gastrointestinal: no symptoms reported Genitourinary: no symptoms reported Musculoskeletal: muscle pain (generalized muscle aches), muscle stiffness Skin: no symptoms reported Past Jeorgud-Jmabjs-Kurjjd Hx Past Med/Social Hx: Reviewed Nursing Past Med/Soc Hx Patient Social History Alcohol Use: Denies Use Recreational Drug Use: No Smoking Status: Current Everyday Smoker Type Used: Cigarettes 2nd Hand Smoke Exposure: Yes Recent Foreign Travel: No Contact w/Someone Who Travel: No Recent Infectious Disease Expo: No Recent Hopitalizations: No Physical Abuse: No Sexual Abuse: No Mistreated: No Fear: No Seasonal Allergies Seasonal Allergies: No Past Medical History Surgeries: Yes Gallbladder, Orthopedic, Tubal Ligation Respiratory: No Cardiac: No Neurological: Yes Seizure Disorder 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 Disorders: No Sexually Transmitted Disease: No HIV/AIDS: No Genitourinary: No Gastrointestinal: No Musculoskeletal: No Endocrine: No HEENT: No Cancer: No Psychosocial: No Integumentary: No Blood Disorders: No Family Medical History Drug abuse 19 MOTHER, Age:46 FH: pulmonary embolism G8 BROTHER, Age:25, Onset:20's - 25 Hypertension 19 MOTHER, Age:46 Physical Exam Vital Signs Vital Signs - First Documented 01/10/19 22:08 Temp 36.3 Pulse 88 Resp 17 B/P (MAP) 132/79 (96) O2 Delivery Room Air Capillary Refill : Less Than 3 Seconds Height, Weight, BMI Height: 5'2.00" Weight: 310lbs. 10.0oz. 140.742833yz; 45.00 BMI Method:Stated General Appearance: No Apparent Distress, WD/WN HEENT: PERRL/EOMI, Pharyngeal Erythema, Tonsillar Exudate, Tonsillar Enlargement Neck: Full Range of Motion, Normal Inspection, Non Tender, Supple Respiratory: Chest Non Tender, Lungs Clear Cardiovascular: Regular Rate, Rhythm, Normal Peripheral Pulses Extremity: Normal Capillary Refill, Normal Inspection, No Pedal Edema Neurologic/Psychiatric: Alert, Oriented x3, No Motor/Sensory Deficits Skin: Normal Color, Warm/Dry Progress/Results/Core Measures Suspected Sepsis Recent Fever Within 48 Hours: Yes Infection Criteria Present: None New/Unexplained Altered Menta: No Sepsis Screen: No Definite Risk SIRS Temperature: Pulse: 88 Respiratory Rate: 17 Blood Pressure 132 /79 Mean: 96 Results/Orders Lab Results Laboratory Tests Test 01/10/19 22:25 Range/Units Group A Streptococcus Screen POSITIVE H NEGATIVE Micro Results Microbiology 01/10/19 Influenza Types A,B Antigen (KATELIN) - Final, Complete My Orders Orders - LES MCCALL MD Rapid Strep A Screen (01/10/19 22:21) Influenza A And B Antigens (01/10/19 22:21) Penicillin G Benzathine Inject (Bicillin (01/10/19 23:09) Dexamethasone Injection (Decadron Inject (01/10/19 23:09) Vital Signs/I&O 01/10/19 22:08 Temp 36.3 Pulse 88 Resp 17 B/P (MAP) 132/79 (96) O2 Delivery Room Air Capillary Refill : Less Than 3 Seconds Blood Pressure Mean: 96 Progress Note : Progress Note strep swab was positive. Flu swab negative. Treat for strep throat with Bicillin LA and Dexamethasone. Counseled on follow up and return precautions. Departure Impression Primary Impression: Strep throat Disposition: HOME, SELF-CARE Condition: Stable Departure-Patient Inst. Decision time for Depature: 23:18 Referrals: MAEVE CALZADA MD (PCP/Family) Primary Care Physician Patient Instructions: Sore Throat, Adult (DC), Strep Throat (DC) Add. Discharge Instructions: Stay well-hydrated and get plenty of rest. Follow-up through the clinic for continued concerns. All discharge instructions reviewed with patient and/or family. Voiced understanding. Work/School Note: Work Release Form Date Seen in the Emergency Department: Jan 10, 2019 Return to Work: Jan 12, 2019 Restrictions: Return-No Fever (24hrs) LES MCCALL MD Jan 10, 2019 23:19
[2019-01-10 23:39] VITALS: BP 139/79
== END 2019-01-10 23:40 | disposition home or self-care (01) ==
LOC: EDUNIT# 22:02 → ER FS 22:04
DX: J02.0 Streptococcal pharyngitis (principal); G40.909 Epilepsy, unspecified, not intractable, without status epilepticus; F17.210 Nicotine dependence, cigarettes, uncomplicated; Z98.51 Tubal ligation status; Z82.49 Family history of ischemic heart disease and other diseases of the circulatory system
CPT/HCPCS: 87430; 87804

== ENCOUNTER 2019-08-27 01:26 | Emergency (ER) | payer SELFPAY ==
[~2019-08-27] VITALS: Ht 157.5 cm; Wt 125.0 kg
[2019-08-27 01:28] VITALS: BP 117/64
--- OUTSIDE RECORDS SUMMARY | 2019-08-27 01:35 | XMS REPORT | Continuity of Care Document ---
Author Organization Unknown Address Unknown Phone Unavailable Allergies Active Description Code Type Severity Reaction Onset Reported/Identified Relationship to Patient Clinical Status Yes KEPPRA SEVERE SEVERE Yes No Known Drug Allergies [id number] Drug Allergy Unknown N/A 03/18/2017 Medications Medication Packaging Start Date St op Date Route Dosage Sig LACTATED RINGERS 1000CC IV BAG INJ ml 12/19/2018 12/26/2018 CONTINUOUSEVERY 0 Hour Problems Date Dx Coded Attending Type Code Diagnosis Diagnosed By 03/18/2017 JESSICA GOLD Ot F17.210 NICOTINE DEPENDENCE, CIGARETTES, UNCOMPL 03/18/2017 JESSICA GOLD Ot G40.909 EPILEPSY, UNSP, NOT INTRACTABLE, WITHOUT 03/18/2017 JESSICA GOLD Ot R25.9 UNSPECIFIED ABNORMAL INVOLUNTARY MOVEMEN 08/02/2018 JIMS DO TAMIKA E Ot E66.0 1 MORBID (SEVERE) OBESITY DUE TO EXCESS CA 08/02/2018 JIMS DO TAMIKA E Ot F17.2 10 NICOTINE DEPENDENCE, CIGARETTES, UNCOMPL 08/02/2018 SEALS DO TAMIKA E Ot G40.9 09 EPILEPSY, UNSP, NOT INTRACTABLE, WITHOUT 08/02/2018 SEALS DO TAMIKA E Ot O70.1 SECOND DEGREE PERINEAL LACERATION DURING 08/02/2018 KORI HARRIS TAMIKA E Ot O99.2 13 OBESITY COMPLICATING , THIRD TR 08/02/2018 SEALS DO TAMIKA E Ot O99.3 33 SMOKING (TOBACCO) COMPLICATING 08/02/2018 SEALS DO TAMIKA E Ot O99.3 53 DISEASES OF THE NERVOUS SYS COMP PREGNAN 08/02/2018 JIMS DO TAMIKA E Ot O99.8 20 STREPTOCOCCUS B CARRIER STATE COMPLICATI 08/02/2018 SEALS DO TAMIKA E Ot Z37.0 SINGLE LIVE 08/02/2018 KORI HARRIS TAMIKA E Ot Z3A.3 9 39 WEEKS GESTATION OF 12/19/2018 TAMIKA SHEIKH V25.2 ENCOUNTER FOR STERILIZATION 12/19/2018 TAMIKA SHEIKH Z30.2 ENCOUNTER FOR STERILIZATION 01/10/2019 LES MCCALL MD Ot F17.2 10 NICOTINE DEPENDENCE, CIGARETTES, UNCOMPL 01/10/2019 LES MCCALL MD Ot G40.9 09 EPILEPSY, UNSP, NOT INTRACTABLE, WITHOUT 01/10/2019 LES MCCALL MD Ot J02.0 STREPTOCOCCAL PHARYNGITIS 01/10/2019 LES MCCALL MD Ot R50.9 FEVER, UNSPECIFIED 01/10/2019 ELS MCCALL MD Ot Z82.4 9 FAMILY HX OF ISCHEM HEART DIS AND OTH DI 01/10/2019 LES MCCALL MD Ot Z98.5 1 TUBAL LIGATION STATUS 01/15/2019 LES MCCALL MD Ot F17.2 10 NICOTINE DEPENDENCE, CIGARETTES, UNCOMPL 01/15/2019 LES MCCALL MD Ot G40.9 09 EPILEPSY, UNSP, NOT INTRACTABLE, WITHOUT 01/15/2019 LES MCCALL MD Ot J02.0 STREPTOCOCCAL PHARYNGITIS 01/15/2019 LES MCCALL MD Ot R50.9 FEVER, UNSPECIFIED 01/15/2019 LES MCCALL MD Ot Z82.4 9 FAMILY HX OF ISCHEM HEART DIS AND OTH DI 01/15/2019 LES MCCALL MD Ot Z98.5 1 TUBAL LIGATION STATUS Procedures Code Description Performed By Per formed On [id number] RE PAIR PERINEUM MUSCLE, OPEN APPROACH 08/01/2018 [id number] DE LIVERY OF PRODUCTS OF CONCEPTION, EXTE 08/01/2018 Results Test Result Range Capillary blood glucose measurement by g lucometer (mass/volume) - 03/18/17 20:31 Capillary blood glucose measurement by glucometer (mas s/volume) 115 mg/dL 70-110 Complete blood count (CBC) with automate d white blood cell (WBC) differential - 03/18/17 20:55 Blood leukocytes automated count (number/volume) 12.3 10*3/uL 4.3-11.0 Blood erythrocytes automated count (number/volume) 4.90 10*6/uL 4.35-5.85 Venous blood hemoglobin measurement (mass/volume) 15.5 g/dL 11.5-16.0 Blood hematocrit (volume fraction) 46 % 35-52 Automated erythrocyte mean corpuscular volume 93 [ foz_us] 80-99 Automated erythrocyte mean corpuscular h emoglobin (mass per erythrocyte) 32 pg 25-34 Automated erythrocyte mean corpuscular h emoglobin concentration measurement (mass/volume) 34 g/dL 32-36 Automated erythrocyte distribution width ratio 12. 1 % 10.0- 14.5 Automated blood platelet count (count/volume) 276 10*3/uL 130-400 Automated blood platelet mean volume measurement 10.3 [foz_us] 7.4-10.4 Automated blood neutrophils/100 leukocytes 66 % 42-75 Automated blood lymphocytes/100 leukocytes 23 % 12-44 Blood monocytes/100 leukocytes 9 % 0-12 Automated blood eosinophils/100 leukocytes 2 % 0-10 Automated blood basophils/100 leukocytes 1 % 0-10 Blood neutrophils automated count (number/volume) 8.2 10*3 1.8-7.8 Blood lymphocytes automated count (number/volume) 2.8 10*3 1.0-4.0 Blood monocytes automated count (number/volume) 1. 1 10*3 0.0-1.0 Automated eosinophil count 0.3 10*3/uL 0 .0-0.3 Automated blood basophil count (count/volume) 0.1 10*3/uL 0.0-0.1 Comprehensive metabolic panel - 03/18/17 20:55 Serum or plasma sodium measurement (moles/volume) 141 mmol/L 135-145 Serum or plasma potassium measurement (moles/volume) 3.7 mmol/L 3.6-5.0 Serum or plasma chloride measurement (moles/volume) 106 mmol/L 98-107 Carbon dioxide 21 mmol/L 21-32 Serum or plasma anion gap determination (moles/volume) 14 mmol/L 5-14 Serum or plasma urea nitrogen measurement (mass/volume ) 15 mg/dL 7-18 Serum or plasma creatinine measurement (mass/volume) 0.78 mg/dL 0.60-1.30 Serum or plasma urea nitrogen/creatinine mass ratio 19 NRG Serum or plasma creatinine measurement w ith calculation of estimated glomerular filtration rate > NRG Serum or plasma glucose measurement (mass/volume) 98 mg/dL 70-105 Serum or plasma calcium measurement (mass/volume) 9.2 mg/dL 8.5-10.1 Serum or plasma total bilirubin measurement (mass/volu me) 0.3 mg/dL 0.1-1.0 Serum or plasma alkaline phosphatase otf surement (enzymatic activity/volume) 77 U/L 40-136 Serum or plasma aspartate aminotransfera se measurement (enzymatic activity/volume) 13 U/L 5-34 Serum or plasma alanine aminotransferase measurement (enzymatic activity/volume) 23 U/L 0-55 Serum or plasma protein measurement (mass/volume) 7.2 g/dL 6.4-8.2 Serum or plasma albumin measurement (mass/volume) 4.0 g/dL 3.2-4.5 Serum or plasma thyrotropin measurement by detection limit <=0.05 miu/l (units/volume) - 03/18/17 20:55 Serum or plasma thyrotropin measurement by detection limit <=0.05 miu/l (units/volume) 1.48 u[iU]/mL 0.35-4.94 Serum or plasma salicylates measurement (mass/volume) - 03/18/17 20:55 Serum or plasma salicylates measurement (mass/volume) < mg/dL 5.0-20.0 Serum or plasma acetaminophen measuremen t (mass/volume) - 03/18/17 20:55 Serum or plasma acetaminophen measurement (mass/volume ) < ug/mL 10-30 Serum or plasma ethanol measurement (mas s/volume) - 03/18/17 20:55 Serum or plasma ethanol measurement (mass/volume) < mg/dL <10 Complete urinalysis with reflex to cultu re - 03/18/17 21:02 Urine color determination YELLOW NRG Urine clarity determination CLEAR NR G Urine pH measurement by test strip 6 5-9 Specific gravity of urine by test strip 1.025 1.016-1.022 Urine protein assay by test strip, semi-quantitative NEGATIVE NEGATIVE Urine glucose detection by automated test strip NE GATIVE NEGATIVE Erythrocytes detection in urine sediment by light micr oscopy 2+ NEGATIVE Urine ketones detection by automated test strip 1+ NEGATIVE Urine nitrite detection by test strip NEGATIVE NEGATIVE Urine total bilirubin detection by test strip NEGA TIVE NEGATIVE Urine urobilinogen measurement by automated test strip (mass/volume) 1 mg/dL NORMAL Urine leukocyte esterase detection by dipstick 1+ NEGATIVE Automated urine sediment erythrocyte cou nt by microscopy (number/high power field) NONE NRG Automated urine sediment leukocyte count by microscopy (number/high power field) [HPF] NRG Bacteria detection in urine sediment by light microsco py NONE NRG Squamous epithelial cells detection in u rine sediment by light microscopy 10-25 NRG Crystals detection in urine sediment by light microsco py PRESENT NRG Casts detection in urine sediment by light microscopy NONE NRG Mucus detection in urine sediment by light microscopy NEGATIVE NRG Complete urinalysis with reflex to culture NO NRG Amorphous sediment detection in urine sediment by ligh t microscopy FEW MENDY URATES NRG Urine drug screening test - 03/18/17 21: 02 Urine phencyclidine detection by screening method NEGATIVE NEGATIVE Urine benzodiazepines detection by screening method NEGATIVE NEGATIVE Urine cocaine detection NEGATIVE NEGATI VE Urine amphetamines detection by screening method N EGATIVE NEGATIVE Urine methamphetamine detection by screening method NEGATIVE NEGATIVE Urine cannabinoids detection by screening method N EGATIVE NEGATIVE Urine opiates detection by screening method NEGATI VE NEGATIVE Urine barbiturates detection NEGATIVE N EGATIVE Screening urine tricyclic antidepressants detection NEGATIVE NEGATIVE Urine methadone detection by screening method NEGA TIVE NEGATIVE Urine oxycodone detection NEGATIVE NEGA TIVE Urine propoxyphene detection NEGATIVE N EGATIVE Complete blood count (CBC) with automate d white blood cell (WBC) differential - 07/30/18 21:40 Blood leukocytes automated count (number/volume) 11.4 10*3/uL 4.3-11.0 Blood erythrocytes automated count (number/volume) 3.80 10*6/uL 4.35-5.85 Venous blood hemoglobin measurement (mass/volume) 12.6 g/dL 11.5-16.0 Blood hematocrit (volume fraction) 36 % 35-52 Automated erythrocyte mean corpuscular volume 95 [ foz_us] 80-99 Automated erythrocyte mean corpuscular h emoglobin (mass per erythrocyte) 33 pg 25-34 Automated erythrocyte mean corpuscular h emoglobin concentration measurement (mass/volume) 35 g/dL 32-36 Automated erythrocyte distribution width ratio 12. 8 % 10.0- 14.5 Automated blood platelet count (count/volume) 237 10*3/uL 130-400 Automated blood platelet mean volume measurement 10.7 [foz_us] 7.4-10.4 Automated blood neutrophils/100 leukocytes 76 % 42-75 Automated blood lymphocytes/100 leukocytes 14 % 12-44 Blood monocytes/100 leukocytes 8 % 0-12 Automated blood eosinophils/100 leukocytes 1 % 0-10 Automated blood basophils/100 leukocytes 0 % 0-10 Blood neutrophils automated count (number/volume) 8.7 10*3 1.8-7.8 Blood lymphocytes automated count (number/volume) 1.6 10*3 1.0-4.0 Blood monocytes automated count (number/volume) 0. 9 10*3 0.0-1.0 Automated eosinophil count 0.1 10*3/uL 0 .0-0.3 Automated blood basophil count (count/volume) 0.0 10*3/uL 0.0-0.1 Blood type T Indirect antibody screen pa ruben - 07/30/18 21:40 ABO+Rh group AP NRG Transfusion band number [id number] NRG Blood group antibody screen NEGATIVE NR G Complete urinalysis with reflex to cultu re - 07/30/18 22:12 Urine color determination YELLOW NRG Urine clarity determination CLEAR NR G Urine pH measurement by test strip 6 5-9 Specific gravity of urine by test strip 1.020 1.016-1.022 Urine protein assay by test strip, semi-quantitative 2+ NEGATIVE Urine glucose detection by automated test strip NE GATIVE NEGATIVE Erythrocytes detection in urine sediment by light micr oscopy 1+ NEGATIVE Urine ketones detection by automated test strip 1+ NEGATIVE Urine nitrite detection by test strip NEGATIVE NEGATIVE Urine total bilirubin detection by test strip NEGA TIVE NEGATIVE Urine urobilinogen measurement by automated test strip (mass/volume) 4 mg/dL NORMAL Urine leukocyte esterase detection by dipstick 1+ NEGATIVE Automated urine sediment erythrocyte cou nt by microscopy (number/high power field) RARE NRG Automated urine sediment leukocyte count by microscopy (number/high power field) RARE NRG Bacteria detection in urine sediment by light microsco py TRACE NRG Squamous epithelial cells detection in u rine sediment by light microscopy >50 NRG Crystals detection in urine sediment by light microsco py NONE NRG Casts detection in urine sediment by light microscopy NONE NRG Mucus detection in urine sediment by light microscopy SMALL NRG Complete urinalysis with reflex to culture NO NRG Complete blood count (CBC) with automate d white blood cell (WBC) differential - 08/02/18 06:25 Blood leukocytes automated count (number/volume) 10.8 10*3/uL 4.3-11.0 Blood erythrocytes automated count (number/volume) 3.51 10*6/uL 4.35-5.85 Venous blood hemoglobin measurement (mass/volume) 11.4 g/dL 11.5-16.0 Blood hematocrit (volume fraction) 34 % 35-52 Automated erythrocyte mean corpuscular volume 97 [ foz_us] 80-99 Automated erythrocyte mean corpuscular h emoglobin (mass per erythrocyte) 33 pg 25-34 Automated erythrocyte mean corpuscular h emoglobin concentration measurement (mass/volume) 33 g/dL 32-36 Automated erythrocyte distribution width ratio 13. 2 % 10.0- 14.5 Automated blood platelet count (count/volume) 185 10*3/uL 130-400 Automated blood platelet mean volume measurement 10.2 [foz_us] 7.4-10.4 Automated blood neutrophils/100 leukocytes 67 % 42-75 Automated blood lymphocytes/100 leukocytes 23 % 12-44 Blood monocytes/100 leukocytes 7 % 0-12 Automated blood eosinophils/100 leukocytes 3 % 0-10 Automated blood basophils/100 leukocytes 0 % 0-10 Blood neutrophils automated count (number/volume) 7.2 10*3 1.8-7.8 Blood lymphocytes automated count (number/volume) 2.5 10*3 1.0-4.0 Blood monocytes automated count (number/volume) 0. 7 10*3 0.0-1.0 Automated eosinophil count 0.3 10*3/uL 0 .0-0.3 Automated blood basophil count (count/volume) 0.0 10*3/uL 0.0-0.1 Test-Serum - 12/19/18 06:41 Preg Test-S Negative Negative BMP - 12/19/18 06:41 Anion Gap 14 6-14 BUN 13 mg/dL 5-25 Calcium 9.1 mg/dL 8.3-10.4 Chloride 108 mmol/L 95-114 CO2 21 mEq/L 22-33 Creat 0.76 mg/dL 0.50-1.50 eGFR 91 mL/min/1.73m2 >59 Glucose 86 mg/dL 70-110 Osmo 287 280-295 Potassium 4.0 mmol/L 3.5-5.3 Sodium 139 mmol/L 134-148 MRSA Screen - 12/19/18 06:41 FINAL CULTURE RESULTS MRSA Negative Nasal Culture MEDIA PLATED Setup at 06:49 on 12/19/2018 CBC with Auto Diff - 12/19/18 06:41 Baso% 0.80 % 0.00-2.50 Eos 0.3 K/uL 0.0-0.7 Eos% 3.7 % 0.0-7.0 Hct 43.0 % 36.0-46.0 Hgb 14.5 g/dL 13.0-15.0 Lym 2.02 K/uL 0.60-3.40 Lym% 27.6 % 10.0-50.0 MCH 32.0 pg 27.0-31.0 MCHC 33.7 g/dL 32.0-36.0 MCV 94.9 fL 80.0-97.0 Bacon% 7.5 % 0.0-12.0 MPV 9.6 fL 7.4-10.0 Lexus% 60.4 % 37.0-80.0 Plt 276 K/uL 150-400 RBC 4.53 M/uL 3.60-5.00 RDW 11.8 % 11.6-14.8 WBC 7.31 K/uL 5.00-10.00 Lexus 4.41 K/uL 2.00-6.90 Bacon 0.6 K/uL 0.0-0.9 Baso 0.1 K/uL 0.0-0.2 Urine Culture - 12/19/18 08:16 PRELIM CULTURE RESULTS No Growth 24 hours FINAL CULTURE RESULTS No Growth 48 hours MEDIA PLATED Setup at 12:27 on 12/19/2018 CULTURE SOURCE cath Surgical Pathology - 12/19/18 12:12 Surg Path Sent to [facility] Pathology Streptococcus pyogenes antigen detection - 01/10/19 22:25 Streptococcus pyogenes antigen detection POSITIVE NEGATIVE Influenza virus A and B antigen detectio n - 01/10/19 22:25 FLU RESULT NEGATIVE FOR INFLUENZA A AND B ANTIGENS BY IA NRG Encounters ACCT No. Visit Date/Time Discharge Status Pt. Type Provider Facility Loc./Unit Complaint [id number] 12/19/2018 00:00:00 12/19/2018 10:07: 00 DIS Outpatient TAMIKA SHEIKH [id number] 12/19/2018 06:55:04 Document Registration [id number] 12/19/2018 06:01:00 Document Registration [id number] 01/10/2019 22:04:00 019 23:40:00 DIS Emergency LES MCCALL MD [facility] ER FS FEVER [id number] 07/30/2018 21:21:00 16:35:00 DIS Inpatient TAMIKA SHEIKH DO [facility] LDRP INDUCTION [id number] 03/18/2017 20:28:00 017 21:56:00 DIS Emergency JESSICA GOLD [facility] ER SEIZURE
[2019-08-27 01:50] LABS: BASOPHILS # (AUTO) 0.1 10^3/uL (0.0-0.1); BASOPHILS % (AUTO) 1 % (0-10); EOSINOPHILS # (AUTO) 0.3 10^3/uL (0.0-0.3); EOSINOPHILS % (AUTO) 3 % (0-10); HEMATOCRIT 42 % (35-52); HEMOGLOBIN 14.2 G/DL (11.5-16.0); LYMPHOCYTES # (AUTO) 2.9 X 10^3 (1.0-4.0); LYMPHOCYTES % (AUTO) 29 % (12-44); MEAN CORPUSCULAR HEMOGLOBIN 32 PG (25-34); MEAN CORPUSCULAR HGB CONC 34 G/DL (32-36); MEAN CORPUSCULAR VOLUME 94 FL (80-99); MEAN PLATELET VOLUME 9.5 FL (7.4-10.4); MONOCYTES # (AUTO) 0.9 X 10^3 (0.0-1.0); MONOCYTES % (AUTO) 9 % (0-12); NEUTROPHILS # (AUTO) 5.8 X 10^3 (1.8-7.8); NEUTROPHILS % (AUTO) 59 % (42-75); PLATELET COUNT 311 10^3/uL (130-400); RED CELL DISTRIBUTION WIDTH 12.2 % (10.0-14.5); WHITE BLOOD COUNT 9.9 10^3/uL (4.3-11.0)
--- NOTE | 2019-08-27 01:50 | ED General ---
General Chief Complaint: Neurological Problems Stated Complaint: SEIZURES Nursing Triage Note: PT TO ROOM FS06 VIA EMS WITH C/O SEIZURE ACTIVITY. 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 Nursing Sepsis Screen: No Definite Risk Source of Information: Patient, EMS History of Present Illness Date Seen by Provider: Aug 27, 2019 Time Seen by Provider: 01:26 Initial Comments 29-year-old female presenting with complaints of increased seizure activity of her pseudoseizures. She states that she has had 7 or 8 episodes tonight. She reports being under extra stress at work. She denies having any fever or chills. She has had a mild cough. She does not feel short of breath. She has no burning with urination. Her last menstrual period just finished. She also has had a tubal ligation in the past. Her was concerned because she had so many episodes of her pseudoseizure tonight that he called EMS. She reports taking Lamictal for her seizures. She follows with Dr. Alexander but does not have a neurologist due to cost and insurance issues. Allergies and Home Medications Allergies Coded Allergies: No Known Drug Allergies (Unverified , 03/18/17) Home Medications Docusate Sodium 100 Mg Capsule, 100 MG PO DAILY Prescribed by: TAMIKA SHEIKH on 08/02/18828 Ibuprofen 800 Mg Tablet, 800 MG PO Q8HR PRN for ABDOMINAL PAIN Prescribed by: TAMIKA SHEIKH on 08/02/18828 Lamotrigine 25 Mg Tablet, 25 MG PO DAILY, (Reported) Levetiracetam 250 Mg Tablet, 250 MG PO TID, (Reported) Oxycodone Hcl 5 Mg Tab, 5 MG PO Q6H PRN for PAIN-SEVERE Prescribed by: TAMIKA SHEIKH on 08/02/18828 Sulfamethoxazole/Trimethoprim 1 Each Tablet, 1 EACH PO BID Prescribed by: LES MCCALL on 08/27/19 0216 Patient Home Medication List Home Medication List Reviewed: Yes Review of Systems Review of Systems Constitutional: No chills, No fever, No malaise EENTM: no symptoms reported Respiratory: cough (mild) Cardiovascular: no symptoms reported Gastrointestinal: no symptoms reported Genitourinary: no symptoms reported Musculoskeletal: no symptoms reported Skin: no symptoms reported Psychiatric/Neurological: Denies Numbness, Denies Paresthesia; Seizure (repeated pseudoseizure activity) Hematologic/Lymphatic: No Symptoms Reported Immunological/Allergic: no symptoms reported Past Tyldnpl-Zvsjza-Rmsmmm Hx Past Med/Social Hx: Reviewed Nursing Past Med/Soc Hx Patient Social History Alcohol Use: Denies Use Recreational Drug Use: No Smoking Status: Current Everyday Smoker Type Used: Cigarettes 2nd Hand Smoke Exposure: Yes Recent Foreign Travel: No Contact w/Someone Who Travel: No Recent Infectious Disease Expo: No Recent Hopitalizations: No Physical Abuse: No Sexual Abuse: No Mistreated: No Fear: No Seasonal Allergies Seasonal Allergies: No Past Medical History Surgeries: Yes Gallbladder, Orthopedic, Tubal Ligation Respiratory: No Cardiac: No Neurological: Yes Seizure Disorder 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 Disorders: No Sexually Transmitted Disease: No HIV/AIDS: No Genitourinary: No Gastrointestinal: No Musculoskeletal: No Endocrine: No HEENT: No Cancer: No Psychosocial: No Integumentary: No Blood Disorders: No Family Medical History Drug abuse 19 MOTHER, Age:46 FH: pulmonary embolism G8 BROTHER, Age:25, Onset:20's - 25 Hypertension 19 MOTHER, Age:46 Physical Exam Vital Signs Vital Signs - First Documented 08/27/19 01:28 Temp 37.8 Pulse 90 Resp 18 B/P (MAP) 117/64 (81) O2 Delivery Room Air Capillary Refill : Less Than 3 Seconds Height, Weight, BMI Height: 5'2.00" Weight: 310lbs. 10.0oz. 140.994202og; 50.00 BMI Method:Stated General Appearance: No Apparent Distress, WD/WN, Obese HEENT: PERRL/EOMI, Normal ENT Inspection, Pharynx Normal Neck: Full Range of Motion, Normal Inspection, Non Tender, Supple Respiratory: Chest Non Tender, Lungs Clear, Normal Breath Sounds, No Accessory Muscle Use, No Respiratory Distress Cardiovascular: Regular Rate, Rhythm, Normal Peripheral Pulses Gastrointestinal: Normal Bowel Sounds, No Pulsatile Mass, Non Tender, Soft Extremity: Normal Capillary Refill, Normal Inspection, Normal Range of Motion, Non Tender, No Calf Tenderness, No Pedal Edema Neurologic/Psychiatric: Alert, Oriented x3, No Motor/Sensory Deficits, Normal Mood/Affect, analysis director II-XII Norm as Tested Skin: Normal Color, Warm/Dry; No Rash Progress/Results/Core Measures Suspected Sepsis Recent Fever Within 48 Hours: Yes Infection Criteria Present: None New/Unexplained Altered Menta: No Sepsis Screen: No Definite Risk SIRS Temperature: Pulse: 90 Respiratory Rate: 18 Laboratory Tests 08/27/19 01:41: White Blood Count 9.9 Blood Pressure 117 /64 Mean: 81 Laboratory Tests 08/27/19 01:41: Creatinine 0.73, Platelet Count 311, Total Bilirubin 0.2 Results/Orders Lab Results Laboratory Tests Test 08/27/19 01:41 08/27/19 01:42 Range/Units White Blood Count 9.9 4.3-11.0 10^3/uL Red Blood Count 4.46 4.35-5.85 10^6/uL Hemoglobin 14.2 11.5-16.0 G/DL Hematocrit 42 35-52 % Mean Corpuscular Volume 94 80-99 FL Mean Corpuscular Hemoglobin 32 25-34 PG Mean Corpuscular Hemoglobin Concent 34 32-36 G/DL Red Cell Distribution Width 12.2 10.0-14.5 % Platelet Count 311 130-400 10^3/uL Mean Platelet Volume 9.5 7.4-10.4 FL Neutrophils (%) (Auto) 59 42-75 % Lymphocytes (%) (Auto) 29 12-44 % Monocytes (%) (Auto) 9 0-12 % Eosinophils (%) (Auto) 3 0-10 % Basophils (%) (Auto) 1 0-10 % Neutrophils # (Auto) 5.8 1.8-7.8 X 10^3 Lymphocytes # (Auto) 2.9 1.0-4.0 X 10^3 Monocytes # (Auto) 0.9 0.0-1.0 X 10^3 Eosinophils # (Auto) 0.3 0.0-0.3 10^3/uL Basophils # (Auto) 0.1 0.0-0.1 10^3/uL Sodium Level 140 135-145 MMOL/L Potassium Level 3.7 3.6-5.0 MMOL/L Chloride Level 103 98-107 MMOL/L Carbon Dioxide Level 24 21-32 MMOL/L Anion Gap 13 5-14 MMOL/L Blood Urea Nitrogen 14 7-18 MG/DL Creatinine 0.73 0.60-1.30 MG/DL Estimat Glomerular Filtration Rate > 60 BUN/Creatinine Ratio 19 Glucose Level 106 H 70-105 MG/DL Calcium Level 8.7 8.5-10.1 MG/DL Corrected Calcium 8.9 8.5-10.1 MG/DL Total Bilirubin 0.2 0.1-1.0 MG/DL Aspartate Amino Transf (AST/SGOT) 12 5-34 U/L Alanine Aminotransferase (ALT/SGPT) 14 0-55 U/L Alkaline Phosphatase 91 40-136 U/L Total Protein 6.3 L 6.4-8.2 GM/DL Albumin 3.8 3.2-4.5 GM/DL Urine Color YELLOW Urine Clarity SLIGHTLY CLOUDY Urine pH 6.0 5-9 Urine Specific [place] >=1.030 1.016-1.022 Urine Protein 1+ H NEGATIVE Urine Glucose (UA) NEGATIVE NEGATIVE Urine Ketones NEGATIVE NEGATIVE Urine Nitrite NEGATIVE NEGATIVE Urine Bilirubin 1+ H NEGATIVE Urine Urobilinogen 1.0 < = 1.0 MG/DL Urine Leukocyte Esterase NEGATIVE NEGATIVE Urine RBC (Auto) 3+ H NEGATIVE Urine RBC 5-10 H /HPF Urine WBC 10-25 H /HPF Urine Squamous Epithelial Cells 25-50 H /HPF Urine Crystals NONE /LPF Urine Bacteria MODERATE H /HPF Urine Casts NONE /LPF Urine Mucus MODERATE H /LPF Urine Culture Indicated YES Urine Opiates Screen NEGATIVE NEGATIVE Urine Oxycodone Screen NEGATIVE NEGATIVE Urine Methadone Screen NEGATIVE NEGATIVE Urine Propoxyphene Screen NEGATIVE NEGATIVE Urine Barbiturates Screen NEGATIVE NEGATIVE Ur Tricyclic Antidepressants Screen NEGATIVE NEGATIVE Urine Phencyclidine Screen NEGATIVE NEGATIVE Urine Amphetamines Screen NEGATIVE NEGATIVE Urine Methamphetamines Screen NEGATIVE NEGATIVE Urine Benzodiazepines Screen NEGATIVE NEGATIVE Urine Cocaine Screen NEGATIVE NEGATIVE Urine Cannabinoids Screen NEGATIVE NEGATIVE My Orders Orders - LES MCCALL MD Cbc With Automated Diff (08/27/19 01:32) Comprehensive Metabolic Panel (08/27/19 01:32) Ua Culture If Indicated (08/27/19 01:32) Urine Bedside (08/27/19 01:32) Drug Screen Stat (Urine) (08/27/19 01:32) Urine Culture (08/27/19 01:42) Acetaminophen Tablet (Tylenol Tablet) (08/27/19 02:10) Sulfamethoxazole/Trimet Ds Tab (Bactrim (08/27/19 02:10) Vital Signs/I&O 08/27/19 08/27/19 01:28 02:24 Temp 37.8 37.8 Pulse 90 Resp 18 B/P (MAP) 117/64 (81) O2 Delivery Room Air Capillary Refill : Less Than 3 Seconds Blood Pressure Mean: 81 Progress Note #1: Progress Note Advised patient that I could check basic electrolytes and urine to look for signs of infection or electrolyte imbalance. These all appear stable she would need to follow-up with Dr. Alexander. They may need to do a level on her Lamictal or evaluate the effectiveness of the medicine. She did have a pseudoseizure while I was speaking with her. I continued to talk to her in a slow and calm voice and she quickly came back around. She thanked me for not laughing at her while the seizure was going on as she has had other doctors laugh at her and make fun of her while she had seizures. Progress Note #2: Time: 02:08 Progress Note Reviewed results with the patient and that her labs appear stable and urine showed some blood and bacteria. Since she had mild elevation of her temperature will give acetaminophen and start bactrim DS for UTI. Counseled on follow up and return precautions and advised to check back with clinic for continued concerns and if Dr. Alexander wanted to check on any level or do other testing. Departure Impression Primary Impression: Pseudoseizures Additional Impression: Cystitis with hematuria Disposition: 01 HOME, SELF-CARE Condition: Stable Departure-Patient Inst. Decision time for Depature: 02:12 Referrals: MAEVE ALEXANDER MD (PCP/Family) Primary Care Physician Patient Instructions: Acute Cystitis (DC), Stress Add. Discharge Instructions: Stay well hydrated and drink plenty of water. Follow up with clinic for continued problems and to see if Dr. Alexander wants to do any other testing or adjust your medicines. Take the full course of antibiotics for urine infection. Increased stress and infections are both causes to aggravate your seizures. Try to get plenty of rest. All discharge instructions reviewed with patient and/or family. Voiced understanding. Scripts Sulfamethoxazole/Trimethoprim (Bactrim Ds Tablet) 1 Each Tablet 1 EACH PO BID for UTI for 5 Days, #10 TAB 0 Refills Prov: LES MCCALL MD 08/27/19 Work/School Note: Work Release Form Date Seen in the Emergency Department: Aug 27, 2019 Return to Work: Aug 28, 2019 Restrictions: No Restrictions LES MCCALL MD Aug 27, 2019 01:50
[2019-08-27 02:00] LABS: CLARITY,URINE SLIGHTLY CLOUDY; COLOR,URINE YELLOW; GLUCOSE, URINE (UA) NEGATIVE (NEGATIVE); KETONES,URINE NEGATIVE (NEGATIVE); NITRITE,URINE NEGATIVE (NEGATIVE); PROTEIN,URINE 1+ (NEGATIVE)
[2019-08-27 02:01] LABS: BACTERIA,URINE MODERATE /HPF; BILIRUBIN,URINE 1+ (NEGATIVE); LEUKOCYTE ESTERASE ,URINE NEGATIVE (NEGATIVE); SQUAMOUS EPITHELIAL CELL,UR 25-50 /HPF
[2019-08-27 02:05] LABS: AMPHETAMINE SCREEN, URINE NEGATIVE (NEGATIVE); BARBITURATE SCREEN URINE NEGATIVE (NEGATIVE); BENZODIAZEPINES SCREEN URINE NEGATIVE (NEGATIVE); CANNABINOID SCREEN, URINE NEGATIVE (NEGATIVE); COCAINE SCREEN URINE NEGATIVE (NEGATIVE); METHADONE STAT NEGATIVE (NEGATIVE); METHAMPHETAMINE SCREEN URINE S NEGATIVE (NEGATIVE); OPIATE SCREEN URINE NEGATIVE (NEGATIVE); OXYCODONE STAT NEGATIVE (NEGATIVE); PROPOXYPHENE STAT NEGATIVE (NEGATIVE); TRICYCLIC ANTIDEPRESSANTS SCRE NEGATIVE (NEGATIVE)
[2019-08-27 02:08] LABS: BUN/CREATININE RATIO 19; CARBON DIOXIDE 24 MMOL/L (21-32); CHLORIDE 103 MMOL/L (98-107); CREATININE SERUM 0.73 MG/DL (0.60-1.30); GFR ESTIMATED > 60; POTASSIUM 3.7 MMOL/L (3.6-5.0); SODIUM 140 MMOL/L (135-145)
[2019-08-27 02:09] LABS: ALANINE AMINOTRANSFERASE 14 U/L (0-55); ALBUMIN 3.8 GM/DL (3.2-4.5); ALKALINE PHOSPHATASE 91 U/L (40-136); BILIRUBIN,TOTAL 0.2 MG/DL (0.1-1.0); CALCIUM 8.7 MG/DL (8.5-10.1); GLUCOSE 106 MG/DL (70-105); TOTAL PROTEIN 6.3 GM/DL (6.4-8.2)
[2019-08-27] MEDS ORDERED: ACETAMINOPHEN 500 MG TAB (TYLENOL) PO STA (02:10)
[2019-08-27] MEDS ORDERED: TRIM/SULFAMETH 160/800 (SEPTRA DS) TAB PO STA (02:10)
[2019-08-27] MEDS ORDERED: SULF1TAB35 PO (02:16)
== END 2019-08-27 02:25 | disposition home or self-care (01) ==
LOC: EDUNIT# 01:26 → ER FS 01:30
DX: F44.89 Other dissociative and conversion disorders (principal); N30.91 Cystitis, unspecified with hematuria; G40.909 Epilepsy, unspecified, not intractable, without status epilepticus; Z82.49 Family history of ischemic heart disease and other diseases of the circulatory system; F17.210 Nicotine dependence, cigarettes, uncomplicated
CPT/HCPCS: 36415; 80053; 80306; 81000; 84703; 85025; 87088

== ENCOUNTER 2019-10-31 23:11 | Emergency (ER) | payer SELFPAY ==
[~2019-10-31] VITALS: Ht 157.5 cm; Wt 136.1 kg
[~2019-10-31 23:11] MED LIST changes: +SULF1TAB35 PO
[2019-10-31 23:23] VITALS: BP 126/78
--- NOTE | 2019-10-31 23:42 | ED General ---
General Chief Complaint: Upper Extremity Stated Complaint: FALL, RIGHT ARM AND RIB PAIN Nursing Triage Note: PT AMBULATE TO ROOM FS02 WITH C/O RIGHT ARM AND RIGHT RIB PAIN. PT STATES SHE HAD A SEIZURE AND FELL AND HIT ARM AND RIBS. PT STATES REPORTS LOC DUE TO SEIZURE AND PT REPORTS THIS IS NORMAL FOR HER. PT DENIES HEAD/NECK/BACK PAIN. Nursing Sepsis Screen: No Definite Risk History of Present Illness Date Seen by Provider: Oct 31, 2019 Time Seen by Provider: 23:37 Initial Comments Patient presenting to emergency department for evaluation of right rib pain and right forearm pain status post fall in the setting of having a seizure. She says that she has a known seizure disorder and has seizures every once a while and she has been compliant with her medications including Keppra and Lamictal. She is unsure of the details of the seizure but from which made it sound like she was standing up and had less than 1 minute seizure and her arm may have hit a cabinet door and she fell to the ground. She denies any head neck chest abdomen back or other extremity pain and she denies any unilateral weakness numbness or tingling. She says her forearm pain is bothering her more than anything else and she thinks that her ribs are just bruised as it does not hurt that bad. Allergies and Home Medications Allergies Coded Allergies: No Known Drug Allergies (Unverified , 03/18/17) Home Medications Docusate Sodium 100 Mg Capsule, 100 MG PO DAILY Prescribed by: TAMIKA SHEIKH on 08/02/18828 Ibuprofen 800 Mg Tablet, 800 MG PO Q8HR PRN for ABDOMINAL PAIN Prescribed by: TAMIKA SHEIKH on 08/02/18828 Lamotrigine 25 Mg Tablet, 25 MG PO DAILY, (Reported) Levetiracetam 250 Mg Tablet, 250 MG PO TID, (Reported) Oxycodone Hcl 5 Mg Tab, 5 MG PO Q6H PRN for PAIN-SEVERE Prescribed by: TAMIKA SHEIKH on 08/02/18828 Sulfamethoxazole/Trimethoprim 1 Each Tablet, 1 EACH PO BID Prescribed by: LES MCCALL on 08/27/19 0216 Patient Home Medication List Home Medication List Reviewed: Yes Review of Systems Review of Systems Constitutional: no symptoms reported EENTM: no symptoms reported Respiratory: no symptoms reported Cardiovascular: no symptoms reported Gastrointestinal: no symptoms reported Musculoskeletal: other (R rib pain, forearm pain) Skin: no symptoms reported Psychiatric/Neurological: No Symptoms Reported All Other Systems Reviewed Negative Unless Noted: Yes Past Lgcsogn-Lirinv-Glpykh Hx Patient Social History Alcohol Use: Denies Use Recreational Drug Use: No Smoking Status: Current Everyday Smoker Type Used: Cigarettes 2nd Hand Smoke Exposure: Yes Recent Foreign Travel: No Contact w/Someone Who Travel: No Recent Infectious Disease Expo: No Recent Hopitalizations: No Physical Abuse: No Sexual Abuse: No Mistreated: No Fear: No Seasonal Allergies Seasonal Allergies: No Past Medical History Surgeries: Yes Gallbladder, Orthopedic, Tubal Ligation Respiratory: No Cardiac: No Neurological: Yes Seizure Disorder 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 Disorders: No Sexually Transmitted Disease: No HIV/AIDS: No Genitourinary: No Gastrointestinal: No Musculoskeletal: No Endocrine: No HEENT: No Cancer: No Psychosocial: No Integumentary: No Blood Disorders: No Family Medical History Drug abuse 19 MOTHER, Age:46 FH: pulmonary embolism G8 BROTHER, Age:25, Onset:20' - 25 Hypertension 19 MOTHER, Age:46 Physical Exam Vital Signs Vital Signs - First Documented 10/31/19 23:23 Temp 36.7 Pulse 104 Resp 17 B/P (MAP) 126/78 (94) O2 Delivery Room Air Capillary Refill : Less Than 3 Seconds Height, Weight, BMI Height: 5'2.00" Weight: 310lbs. 10.0oz. 140.944345kk; 54.00 BMI Method:Stated General Appearance: No Apparent Distress, WD/WN Eyes: Bilateral Eye Normal Inspection Neck: Non Tender, Supple Respiratory: Lungs Clear, No Respiratory Distress, Other (R lateral ribs 6-10 ttp. No obvious SQ air or deformity or bruising externally) Cardiovascular: Regular Rate, Rhythm Gastrointestinal: Non Tender, Soft Back: Normal Inspection Extremity: Other (forearm with small contusion on extensor surface. No obvious deformity. NV intact distally) Neurologic/Psychiatric: Alert, Oriented x3 Skin: Warm/Dry Progress/Results/Core Measures Suspected Sepsis Recent Fever Within 48 Hours: No Infection Criteria Present: None New/Unexplained Altered Menta: No Sepsis Screen: No Definite Risk SIRS Temperature: Pulse: 104 Respiratory Rate: 17 Blood Pressure 126 /78 Mean: 94 Results/Orders My Orders Orders - MARGARITO CEJA DO Forearm 2 View Right (10/31/19 23:35) Chest 1 View Ap/Pa Only (10/31/19 23:35) Hydrocodone/Apap 5/325 Tablet (Lortab 5 (10/31/19 23:45) Ibuprofen Tablet (Motrin Tablet) (10/31/19 23:45) Medications Given in ED Current Medications Medications Dose Ordered Sig/Syed Route Start Time Stop Time Status Last Admin Dose Admin Acetaminophen/ Hydrocodone Bitart 1 tab ONCE ONCE PO 10/31/19 23:45 10/31/19 23:46 DC 10/31/19 23:42 1 TAB Ibuprofen 600 mg ONCE ONCE PO 10/31/19 23:45 10/31/19 23:46 DC 10/31/19 23:43 600 MG Vital Signs/I&O 10/31/19 23:23 Temp 36.7 Pulse 104 Resp 17 B/P (MAP) 126/78 (94) O2 Delivery Room Air Capillary Refill : Less Than 3 Seconds Blood Pressure Mean: 94 Progress Note : Progress Note Patient has negative imaging and she appears well with normal vital signs. Pain improved with ibuprofen and App[place] here so she'll be told to take ibuprofen at home rice precautions follow primary care provider later this week and come back to the ED sooner with worsening pain neurologic changes other general concerns. Patient aware and agreeable with plan and verbalized understanding of the above instructions. Departure Impression Primary Impression: Contusion of forearm, right Qualified Codes: S50.11XA - Contusion of right forearm, initial encounter Additional Impression: Contusion of rib on right side Qualified Codes: S20.211A - Contusion of right front wall of thorax, initial encounter Disposition: 01 HOME, SELF-CARE Condition: Stable Departure-Patient Inst. Referrals: MAEVE CALZADA MD (PCP/Family) Primary Care Physician Patient Instructions: Contusion (DC), Bruised Rib (DC) Add. Discharge Instructions: Take 600mg of ibuprofen every 6 hours. Rest Ice Compression Elevation All discharge instructions reviewed with patient and/or family. Voiced understanding. MARGARITO CEJA DO Oct 31, 2019 23:42
[2019-10-31] MEDS ORDERED: HYDROcodone/APAP 5 MG/325 MG (LORTAB) TAB PO ONE (23:45)
[2019-10-31] MEDS ORDERED: IBUPROFEN 600 MG (MOTRIN) TAB PO ONE (23:45)
--- NOTE | 2019-11-01 05:32 | Diagnostic Imaging Report ---
INDICATION: pain s/p fall COMPARISON: None. FINDINGS: Single frontal view of the chest demonstrates normal heart size and pulmonary vascularity. The lungs are well aerated and clear. No large pleural effusion or pneumothorax is seen. The visualized osseous structures show no acute abnormalities. IMPRESSION: 1. No acute cardiopulmonary process. Dictated by: Dictated on workstation # [id number]
--- NOTE | 2019-11-01 05:33 | Diagnostic Imaging Report ---
INDICATION: Seizure. Fall. Pain. COMPARISON: None. FINDINGS: 2 views of the right forearm were obtained and show no fractures, dislocations, or other acute bony abnormalities. Joint spaces are well maintained throughout. The soft tissues appear unremarkable. No radiopaque foreign bodies are identified. IMPRESSION: Unremarkable radiographic exam of the right forearm. Dictated by: Dictated on workstation # [id number]
== END 2019-11-01 00:01 | disposition home or self-care (01) ==
LOC: EDUNIT# 23:11 → ER FS 23:17
DX: S20.211A Contusion of right front wall of thorax, initial encounter (principal); S50.11XA Contusion of right forearm, initial encounter; G40.909 Epilepsy, unspecified, not intractable, without status epilepticus; F17.210 Nicotine dependence, cigarettes, uncomplicated; Z98.51 Tubal ligation status; Z82.49 Family history of ischemic heart disease and other diseases of the circulatory system; W01.198A Fall on same level from slipping, tripping and stumbling with subsequent striking against other object, initial encounter
CPT/HCPCS: 71045; 73090

== ENCOUNTER 2020-02-19 20:33 | Emergency (ER) | payer SELFPAY ==
[~2020-02-19] VITALS: Ht 162.6 cm; Wt 136.4 kg
--- NOTE | 2020-02-19 20:37 | NUR ---
WAS INFORMED THAT HE CAN WAIT IN CAR AND WE WILL CALL HIM WITH AN UPDATE.
--- NOTE | 2020-02-19 20:47 | NUR ---
THIS RN WENT TO TALK TO REGISTRATION AND FAHEEM STATED SHE HAD STEPPED AWAY FOR ONE SECOND TO WARM FOOD UP IN [place]. PT WAS FINE PRIOR. DURING REGISTRATION, PT AND GOT VERY UPSET, BECAUSE HE COULD NOT WAIT WITH PATIENT OR GO BACK IN ER WITH HER.
--- NOTE | 2020-02-19 21:14 | ED Upper Extremity ---
General Chief Complaint: Upper Extremity Stated Complaint: FALL,LT WRIST PAIN Nursing Triage Note: PT ARRIVED BY PRIVATE VEHICLE WITH SPOUSE () WITH CHIEF COMPLAINT OF WRIST INJURY/PAIN (LEFT). THIS RN WENT TO GO GET PATIENT IN WAITING ROOM AND TAKE PT TO ROOM 2, BUT THIS RN FOUND PT FACE DOWN IN WAITING ROOM HAVING SEIZURE LIKE ACTIVITY. THIS RN CALLED FOR HELP AND ROLLED PATIENT ON HER LEFT SIDE. ONCE OTHER STAFF ARRIVED, PT STARTED TO SLOWLY STOP SHAKING. AT THIS TIME PATIENTS ARRIVED AND WAS YELLING THAT HE TOLD THE [employer] THAT HE NEEDED TO BE IN HERE OR THIS WAS GOING TO HAPPEN. PT STARTED TO WAKE UP AND WAS ASKED IF SHE WAS OKAY. SHE STATED YES. PT'S STATED IT IS DUE TO WEATHER AND IT BEING COLD. PT STATED "YES, I THINK IT IS DUE TO THE WEATHER." PT WAS ALERT AND ORIENTED X R AT THIS TIME. PT WAS ASSITED TO FEET AND INTO THE ER BED. PT'S WAS ASKED IF SHE HAS HISTORY OF SEIZURES AND HE STATED YES. I ASKED IF SHE WAS ON ANY MEDICATIONS AND HE STATED YES THAT ELSI JUST RECENTLY CHANGED HER MEDICATION. I ASKED THE PATIENT IF SHE WAS HERE FOR AN INJURED WRIST AND SHE STATED "YES." SHE POINTED TO HER LEFT HAND AND STATED "THE ONE I JUST LANDED ON." PT WAS WHEELED BACK TO ROOM 6 AND HER VITAL SIGNS WERE TAKEN. PT STATED SHE FELL RIGHT BEFORE SHE CAME HERE AT HOME AND INJURED HER LEFT WRIST. PT STATED THAT HER PAIN IS AN 8 ON POSTERIOR (ANATOMICAL POSITIONING) PART OF WRIST. PT HAS HISTORY OF SEIZURES, BUT NO OTHER PAST MEDICAL HISTORY. PT'S SURGICAL HISTORY CONSISTS OF CHOLECYSTECTOMY, FEMUR FX (RT) REPAIR, RIGHT THUMB AMPUTATION. PT HAS HAD TUBAL LIGATION (2 CHILD BIRTHS) AND IS CURRENTLY ON HER PERIOD. PT IS TAKING LAMICTAL, TOPAMAX, KLONOPIN, CYMBALTA AND ABILIFY. PT SMOKES A PACK OF CIGARETTES A DAY AND DENIES ALCOHOL AND DRUG USE. PT DOES NOT HAVE ANY MEDICATION ALLERGIES, BUT SHE DOES NOT PREFER THE WAY KEPPRA MAKES HER FEEL SHE STATED. DOCTOR WAS CALLED AT THIS TIME INFORMED ABOUT CHIEF COMPLAINT AND WHAT PATIENT WAS FOUND LIKE IN WAITING ROOM. BASED ON PAST ER VISITS PT HAS PREVIOUS HAD DIAGNOSES OF PSEUDOSEIZURES. Nursing Sepsis Screen: No Definite Risk Source: patient History of Present Illness Date Seen by Provider: Feb 19, 2020 Time Seen by Provider: 21:40 Initial Comments Patient is a 21-year-old right-handed female presents with left wrist injury after falling. Patient has pain to dorsum of her proximal wrist. No obvious deformity or bruising on evaluation. Patient does have some soft tissue swelling and pain on range of motion. Denies other injury or pain complain. Patient has a history of seizures and is currently on Lamictal. She states her seizures are triggered by pad weather and in particular todays thunder storms. She is compliant with therapy. Onset: just prior to arrival Pain/Injury Location: left wrist Modifying Factors: Improves With Immobilization, Improves With Movement, Improves With Pain Medication Allergies and Home Medications Allergies Coded Allergies: No Known Drug Allergies (Unverified , 03/18/17) Home Medications Docusate Sodium 100 Mg Capsule, 100 MG PO DAILY Prescribed by: TAMIKA SHEIKH on 08/02/18828 Ibuprofen 800 Mg Tablet, 800 MG PO Q8HR PRN for ABDOMINAL PAIN Prescribed by: TAMIKA SHEIKH on 08/02/18828 Lamotrigine 25 Mg Tablet, 25 MG PO DAILY, (Reported) Levetiracetam 250 Mg Tablet, 250 MG PO TID, (Reported) Oxycodone Hcl 5 Mg Tab, 5 MG PO Q6H PRN for PAIN-SEVERE Prescribed by: TAMIKA SHEIKH on 08/02/18828 Sulfamethoxazole/Trimethoprim 1 Each Tablet, 1 EACH PO BID Prescribed by: LES MCCALL on 08/27/19 0216 Patient Home Medication List Home Medication List Reviewed: Yes Review of Systems Constitutional: see HPI EENTM: see HPI Respiratory: see HPI Gastrointestinal: see HPI Genitourinary: see HPI : Yes Musculoskeletal: see HPI Skin: see HPI Psychiatric/Neurological: See HPI Past Kleowqv-Tpyhlh-Sxkdhw Hx Past Med/Social Hx: Reviewed Nursing Past Med/Soc Hx Patient Social History Alcohol Use: Denies Use Recreational Drug Use: No Type Used: Cigarettes 2nd Hand Smoke Exposure: Yes Recent Foreign Travel: No Contact w/Someone Who Travel: No Recent Infectious Disease Expo: No Recent Hopitalizations: No Physical Abuse: No Sexual Abuse: No Mistreated: No Fear: No Seasonal Allergies Seasonal Allergies: No Past Medical History Surgeries: Yes Gallbladder, Orthopedic, Tubal Ligation Respiratory: No Cardiac: No Neurological: Yes Seizure Disorder 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 Disorders: No Sexually Transmitted Disease: No HIV/AIDS: No Genitourinary: No Gastrointestinal: No Musculoskeletal: No Endocrine: No HEENT: No Cancer: No Psychosocial: No Integumentary: No Blood Disorders: No Family Medical History Drug abuse 19 MOTHER, Age:46 FH: pulmonary embolism G8 BROTHER, Age:25, Onset:20's - 25 Hypertension 19 MOTHER, Age:46 Physical Exam Vital Signs Vital Signs - First Documented 02/19/20 20:37 Temp 36.0 Pulse 102 Resp 16 B/P (MAP) 137/87 (104) Pulse Ox 96 O2 Delivery Room Air Capillary Refill : Less Than 3 Seconds Height, Weight, BMI Height: 5'2.00" Weight: 310lbs. 10.0oz. [id number]; 51.00 BMI Method:Stated General Appearance: no apparent distress HEENT: PERRL/EOMI, normal ENT inspection Neck: non-tender, supple Cardiovascular: normal peripheral pulses, regular rate, rhythm Respiratory: chest non-tender, lungs clear Back: normal inspection Elbow/Forearm: normal inspection, non-tender Wrist: No bone tenderness, No limited ROM; Yes soft tissue tenderness (dorsum of left wrist), Yes swelling Neurologic/Tendon: normal sensation, normal motor functions, responds to pain Neurologic/Psychiatric: no motor/sensory deficits Progress/Results/Core Measures Results/Orders My Orders Orders - IFTIKHAR ESCUDERO DO Wrist 3 View Left (02/19/20 20:53) Hydrocodone/Apap 5/325 Tablet (Lortab 5 (02/19/20 21:15) Norris Bandage (02/19/20 21:10) Vital Signs/I&O 02/19/20 20:37 Temp 36.0 Pulse 102 Resp 16 B/P (MAP) 137/87 (104) Pulse Ox 96 O2 Delivery Room Air Blood Pressure Mean: 104 Departure Communication (Admissions) Left wrist x-ray: No fracture Impression Primary Impression: Contusion of wrist, left Disposition: 01 HOME, SELF-CARE Condition: Stable Departure-Patient Inst. Decision time for Depature: 21:14 Add. Discharge Instructions: Please take Tylenol for pain and wear splint. Follow up your PCP as needed. All discharge instructions reviewed with patient and/or family. Voiced understanding. IFTIKHAR ESCUDERO DO Feb 19, 2020 21:14
[2020-02-19] MEDS ORDERED: HYDROcodone/APAP 5 MG/325 MG (LORTAB) TAB PO ONE (21:15)
--- NOTE | 2020-02-19 21:19 | Diagnostic Imaging Report ---
EXAM: Left wrist at 8:56 PM INDICATION: Fell, wrist pain 3 views were obtained. COMPARISON: There are no prior studies for comparison. FINDINGS: There is no fracture, dislocation or acute bony abnormality evident. The radiocarpal joint is fairly well maintained. The soft tissues are unremarkable. IMPRESSION: There is no evidence for an acute bony abnormality. Dictated by: Dictated on workstation # [id number]
--- NOTE | 2020-02-19 21:20 | NUR ---
AT THIS TIME DR. ESCUDERO ASKED ME TO COME HERE WHERE HE WAS STANDING OUTSIDE ROOM 6. IT APPEARED HE WANTED ME TO LOOK AT PATIENT WITH HIM. AT THIS TIME WE WALKED IN ROOM AND PT STARTED TO CALM DOWN. PT WAS OPENING EYES AND DOCTOR ASKED IF SHE WAS OKAY AND SHE STATED YES. DOCTOR AT THIS TIME REACHED DOWN FOR MEDICAL TAG PT WAS WEARING AND IT STATED DNR. DOCTOR INFORMED HER THAT SHE DID NOT BREAK ANYTHING, WE WILL WRAP IT WITH [facility]AP, AND GIVE HER A PAIN PILL. DOCTOR ASKED IF SHE WOULD LIKE SOMETHING FOR ANXIETY AND SHE STATED YES. DOCTOR PLANS ON ORDERING ATIVAN.
[2020-02-19] MEDS ORDERED: LORazepam 0.5 MG (ATIVAN) TABLET PO STA (21:22)
--- NOTE | 2020-02-19 21:35 | NUR ---
WAS CALLED AT THIS TIME INFORMING HIM OF TX PLAN, THAT THERE WERE NO FRACTURES IN WRIST AND THAT PT WILL BE GETTING DISCHARGED SOON. HE PLANNED ON PULLING THE VEHICLE UP FOR IT TO BE EASIER FOR PT TO GET IN.
[2020-02-19 21:40] VITALS: BP 120/65
--- NOTE | 2020-02-19 21:40 | NUR ---
AT DISCHARGE PATIENT WAS ALERT, ORIENTED X 4 AND AMBULATORY. THIS RN OFFERED TO WHEEL PATIENT TO DC AND THE CAR, BUT PT REFUSED. PT WAS ASSISTED TO DISCHARGE, BUT PT WAS AHEAD OF HER. PT STATED SHE WAS FINE AND DID NOT NEED CHAIR OR WHEELCHAIR TO WAIT. PT STATED SHE WAS FINE STANDING.
== END 2020-02-19 21:40 | disposition home or self-care (01) ==
LOC: EDUNIT# 20:33 → ER FS 20:35
DX: S60.212A Contusion of left wrist, initial encounter (principal); G40.909 Epilepsy, unspecified, not intractable, without status epilepticus; Z82.49 Family history of ischemic heart disease and other diseases of the circulatory system; Z77.22 Contact with and (suspected) exposure to environmental tobacco smoke (acute) (chronic); W19.XXXA Unspecified fall, initial encounter
CPT/HCPCS: 73110

== ENCOUNTER 2020-05-17 21:12 | Emergency (ER) | payer SELFPAY ==
[~2020-05-17] VITALS: Ht 157.5 cm; Wt 136.4 kg
[2020-05-17] MEDS ORDERED: TOPI25TA10 (21:17)
[2020-05-17] MEDS ORDERED: DULO30CA49 (21:19)
[2020-05-17] MEDS ORDERED: clonazepam (21:19)
[2020-05-17] MEDS ORDERED: ARIP10TA17 (21:19)
--- NOTE | 2020-05-17 21:49 | Diagnostic Imaging Report ---
PROCEDURE: CT head and CT cervical spine without contrast. TECHNIQUE: Multiple contiguous axial images were obtained through the brain and cervical spine without the use of intravenous contrast. Sagittal and coronal reformations through the cervical spine were then performed. Auto Exposure Controls were utilized during the CT exam to meet ALARA standards for radiation dose reduction. INDICATION: Fall, syncope. COMPARISON: None. FINDINGS: CT head: Ventricles are normal in size, shape and position. There is no midline shift or mass effect. There is no hemorrhage or evidence of acute ischemia. There is no skull fracture. The paranasal sinuses and mastoids are clear. IMPRESSION: Negative CT head. CT cervical spine: Alignment is normal. There is no subluxation or fracture. No significant degeneration is seen. There is no osseous lesion. Soft tissues are grossly intact. There is asymmetric enlargement of the right thyroid gland. Nonemergent ultrasound is recommended. IMPRESSION: 1. No traumatic malalignment or fracture 2. Enlarged thyroid. Recommend a nonemergent ultrasound. Dictated by: Dictated on workstation # [id number]
[2020-05-17 21:52] LABS: BASOPHILS % (AUTO) 0 % (0-10); EOSINOPHILS % (AUTO) 0 % (0-10); HEMATOCRIT 40 % (35-52); HEMOGLOBIN 13.4 g/dL (11.5-16.0); LYMPHOCYTES # (AUTO) 2.3 10^3/uL (1.0-4.0); LYMPHOCYTES % (AUTO) 17 % (12-44); MEAN CORPUSCULAR HEMOGLOBIN 32 pg (25-34); MEAN CORPUSCULAR HGB CONC 34 g/dL (32-36); MEAN CORPUSCULAR VOLUME 96 fL (80-99); MEAN PLATELET VOLUME 9.3 fL (9.0-12.2); MONOCYTES # (AUTO) 0.9 10^3/uL (0.0-1.0); MONOCYTES % (AUTO) 7 % (0-12); NEUTROPHILS # (AUTO) 10.1 10^3/uL (1.8-7.8); NEUTROPHILS % (AUTO) 75 % (42-75); PLATELET COUNT 272 10^3/uL (130-400); WHITE BLOOD COUNT 13.4 10^3/uL (4.3-11.0)
[2020-05-17 21:52] LABS: BILIRUBIN,URINE NEGATIVE (NEGATIVE); CLARITY,URINE CLEAR; COLOR,URINE RED; GLUCOSE, URINE (UA) NEGATIVE (NEGATIVE); KETONES,URINE NEGATIVE (NEGATIVE); LEUKOCYTE ESTERASE ,URINE TRACE (NEGATIVE); NITRITE,URINE NEGATIVE (NEGATIVE); PH,URINE 5.5 (5-9); PROTEIN,URINE 1+ (NEGATIVE)
--- NOTE | 2020-05-17 21:59 | ED Syncope ---
General Chief Complaint: Dizziness/Syncope Stated Complaint: FALL / SYNCOPAL EPISODE Nursing Triage Note: brought in by [facility] s/o syncopal episode/fall. pt reports approx. 2min loc. c/o posterior head pain. denies other injury/pain. History of Present Illness Date Seen by Provider: May 17, 2020 Time Seen by Provider: 21:15 Initial Comments 30-year-old female presents for 2 syncopal episodes that have happened today causing her to fall. She works at [employer] and [employer] where both incidents occurred. She has a history of seizure disorder and takes Klonopin, Topamax, Lamictal and Tegretol. After the first episode at 1600, she refused EMS evaluation or transfer. She denies any new stressors. No seizure activity was wi tnessed during either syncopal episodes. She denies chest pain or SOA. She did hit her head, at the first syncopal episide, when she fell. Right temporal region is tender. No laceration or abrasion Timing/Prior Episodes: Multiple Episodes Today Symptoms Prior to Episode: None Loss of Consciousness: Brief (Seconds) (co-workers reported. ) Current Symptoms: Back to Normal Allergies and Home Medications Allergies Coded Allergies: No Known Drug Allergies (Unverified , 03/18/17) Home Medications Lamotrigine 25 Mg Tablet, 25 MG PO DAILY, (Reported) Patient Home Medication List Home Medication List Reviewed: Yes Review of Systems Constitutional: no symptoms reported, see HPI EENTM: see HPI, no symptoms reported Respiratory: no symptoms reported, see HPI Cardiovascular: no symptoms reported, see HPI Gastrointestinal: no symptoms reported, see HPI Genitourinary: no symptoms reported, see HPI Musculoskeletal: no symptoms reported, see HPI Skin: no symptoms reported, see HPI Psychiatric/Neurological: See HPI, Headache Past Wujbglz-Dutbdi-Zrssdk Hx Past Med/Social Hx: Reviewed Nursing Past Med/Soc Hx Patient Social History Alcohol Use: Denies Use Smoking Status: Current Everyday Smoker Type Used: Cigarettes 2nd Hand Smoke Exposure: Yes Recent Infectious Disease Expo: No Recent Hopitalizations: No Immunizations Up To Date Tetanus Booster (TDap): Unknown Seasonal Allergies Seasonal Allergies: No Past Medical History Surgeries: Yes Gallbladder, Orthopedic, Tubal Ligation Respiratory: No Cardiac: No Neurological: Yes Headaches /Migraines, Seizure Disorder : No 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 Disorders: No [employer]ICIAN History: Tubal Ligation Sexually Transmitted Disease: No HIV/AIDS: No Genitourinary: No Gastrointestinal: No Musculoskeletal: No Endocrine: No HEENT: No Cancer: No Psychosocial: Yes Anxiety, Depression Integumentary: No Blood Disorders: No Family Medical History Drug abuse 19 MOTHER, Age:46 FH: pulmonary embolism G8 BROTHER, Age:25, Onset:20's - 25 Hypertension 19 MOTHER, Age:46 Physical Exam Vital Signs Vital Signs - First Documented 05/17/20 21:12 Temp 35.9 Pulse 79 Resp 18 B/P (MAP) 111/58 (75) Pulse Ox 98 O2 Delivery Room Air Capillary Refill : Less Than 3 Seconds Height, Weight, BMI Height: 5'2.00" Weight: 310lbs. 10.0oz. [id number]; 54.00 BMI Method:Stated General Appearance: No Apparent Distress, WD/WN HEENT: PERRL/EOMI, TMs Normal, Normal ENT Inspection, Pharynx Normal Neck: Normal Inspection, Supple, Tender Lateral (bilat), Other (Power V/V C5- T1. 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0 MG/DL Urine Leukocyte Esterase TRACE H NEGATIVE Urine RBC (Auto) 3+ H NEGATIVE Urine RBC >100 H /HPF Urine WBC 5-10 H /HPF Urine Crystals PRESENT H /LPF Urine Amorphous Sediment FEW MENDY URATES H /LPF Urine Bacteria NEGATIVE /HPF Urine Casts NONE /LPF Urine Mucus NEGATIVE /LPF Urine Culture Indicated NO Urine Opiates Screen NEGATIVE NEGATIVE Urine Oxycodone Screen NEGATIVE NEGATIVE Urine Methadone Screen NEGATIVE NEGATIVE Urine Propoxyphene Screen NEGATIVE NEGATIVE Urine Barbiturates Screen NEGATIVE NEGATIVE Ur Tricyclic Antidepressants Screen NEGATIVE NEGATIVE Urine Phencyclidine Screen NEGATIVE NEGATIVE Urine Amphetamines Screen NEGATIVE NEGATIVE Urine Methamphetamines Screen NEGATIVE NEGATIVE Urine Benzodiazepines Screen NEGATIVE NEGATIVE Urine Cocaine Screen NEGATIVE NEGATIVE Urine Cannabinoids Screen NEGATIVE NEGATIVE White Blood Count 13.4 H 4.3-11.0 10^3/uL Red Blood Count 4.14 3.80-5.11 10^6/uL Hemoglobin 13.4 11.5-16.0 g/dL Hematocrit 40 35-52 % Mean Corpuscular Volume 96 80-99 fL Mean Corpuscular Hemoglobin 32 25-34 pg Mean Corpuscular Hemoglobin Concent 34 32-36 g/dL Red Cell Distribution Width 12.4 10.0-14.5 % Platelet Count 272 130-400 10^3/uL Mean Platelet Volume 9.3 9.0-12.2 fL Immature Granulocyte % (Auto) 1 % Neutrophils (%) (Auto) 75 42-75 % Lymphocytes (%) (Auto) 17 12-44 % Monocytes (%) (Auto) 7 0-12 % Eosinophils (%) (Auto) 0 0-10 % Basophils (%) (Auto) 0 0-10 % Neutrophils # (Auto) 10.1 H 1.8-7.8 10^3/uL Lymphocytes # (Auto) 2.3 1.0-4.0 10^3/uL Monocytes # (Auto) 0.9 0.0-1.0 10^3/uL Eosinophils # (Auto) 0.0 0.0-0.3 10^3/uL Basophils # (Auto) 0.0 0.0-0.1 10^3/uL Immature Granulocyte # (Auto) 0.1 0.0-0.1 10^3/uL Sodium Level 140 135-145 MMOL/L Potassium Level 4.1 3.6-5.0 MMOL/L Chloride Level 110 H 98-107 MMOL/L Carbon Dioxide Level 20 L 21-32 MMOL/L Anion Gap 10 5-14 MMOL/L Blood Urea Nitrogen 15 7-18 MG/DL Creatinine 0.80 0.60-1.30 MG/DL Estimat Glomerular Filtration Rate > 60 BUN/Creatinine Ratio 19 Glucose Level 98 70-105 MG/DL Calcium Level 8.5 8.5-10.1 MG/DL Corrected Calcium 8.7 8.5-10.1 MG/DL Total Bilirubin 0.2 0.1-1.0 MG/DL Aspartate Amino Transf (AST/SGOT) 14 5-34 U/L Alanine Aminotransferase (ALT/SGPT) 27 0-55 U/L Alkaline Phosphatase 103 40-136 U/L Total Protein 6.7 6.4-8.2 GM/DL Albumin 3.8 3.2-4.5 GM/DL My Orders Orders - JESSICA GOLD Ct Head/Cervical Spine Wo (05/17/20 21:16) Cbc With Automated Diff (05/17/20 21:16) Comprehensive Metabolic Panel (05/17/20 21:16) Drug Screen Stat (Urine) (05/17/20 21:16) Ua Culture If Indicated (05/17/20 21:16) Ekg Tracing (05/17/20 21:26) Thyroid Analyzer (05/17/20 22:16) Vital Signs/I&O 05/17/20 21:12 Temp 35.9 Pulse 79 Resp 18 B/P (MAP) 111/58 (75) Pulse Ox 98 O2 Delivery Room Air Blood Pressure Mean: 75 Initial ECG Impression Date: May 17, 2020 Initial ECG Impression Time: 21:34 Initial ECG Rate: 74 Initial ECG Rhythm: Normal Sinus Initial ECG Intervals: Normal Initial ECG Intervals W[place] 124, QRSD 96, QT 372. QTc 413. [place] P 34, QRS 38, T10. Initial ECG Impression: Normal Initial ECG Comparisson: No Previous ECG Available Diagnostic Imaging Diagonstic Imaging: CT Plain Films/CT/US/NM/MRI: c-spine, head Comments NAME: ROSANAALAINAOSCAR D [facility] REC#: [id number] PT STATUS: REG ER : 1990 PHYSICIAN: JESSICA GOLD ADMIT DATE: 05/17/20/ER Signed Date of Exam:05/17/20 CT HEAD/CERVICAL SPINE WO PROCEDURE: CT head and CT cervical spine without contrast. TECHNIQUE: Multiple contiguous axial images were obtained through the brain and cervical spine without the use of intravenous contrast. Sagittal and coronal reformations through the cervical spine were then performed. Auto Exposure Controls were utilized during the CT exam to meet ALARA standards for radiation dose reduction. INDICATION: Fall, syncope. COMPARISON: None. FINDINGS: CT head: Ventricles are normal in size, shape and position. There is no midline shift or mass effect. There is no hemorrhage or evidence of acute ischemia. There is no skull fracture. The paranasal sinuses and mastoids are clear. IMPRESSION: Negative CT head. CT cervical spine: Alignment is normal. There is no subluxation or fracture. No significant degeneration is seen. There is no osseous lesion. Soft tissues are grossly intact. There is asymmetric enlargement of the right thyroid gland. Nonemergent ultrasound is recommended. IMPRESSION: 1. No traumatic malalignment or fracture 2. Enlarged thyroid. Recommend a nonemergent ultrasound. Dictated by: Dictated on workstation # [id number] Dict: 05/17/202136 Trans: 05/17/202149 [facility] [id number] Reviewed: Reviewed by Me Departure Impression Primary Impression: Syncope Qualified Codes: R55 - Syncope and collapse Additional Impressions: UTI (urinary tract infection) Qualified Codes: N30.01 - Acute cystitis with hematuria Enlarged thyroid Disposition: HOME, SELF-CARE Condition: Improved Departure-Patient Inst. Decision time for Depature: 20:15 Referrals: MAEVE ALEXANDER MD (PCP/Family) Primary Care Physician Patient Instructions: Syncope (Fainting) (DC), Thyroid Nodules Add. Discharge Instructions: Follow-up with your primary care provider to have an ultrasound of your thyroid. Continue your home medications. Avoid driving, since you had 2 syncopal events today, until your follow up with Dr. Alexander You may resume work as tolerated. Return to the emergency department for new, urgent healthcare needs. All discharge instructions reviewed with patient and/or family. Voiced understanding. Work/School Note: Work Release Form Date Seen in the Emergency Department: May 17, 2020 Return to Work: May 20, 2020 Restrictions: Need Release from Doctor Copy Copies To 1: MAEVE ALEXANDER MD, [facility] May 17, 2020 21:59
[2020-05-17 22:00] LABS: ALBUMIN 3.8 GM/DL (3.2-4.5); CHLORIDE 110 MMOL/L (98-107); POTASSIUM 4.1 MMOL/L (3.6-5.0); SODIUM 140 MMOL/L (135-145)
[2020-05-17 22:01] LABS: CALCIUM 8.5 MG/DL (8.5-10.1)
[2020-05-17 22:02] LABS: RBC,URINE >100 /HPF
[2020-05-17 22:03] LABS: GLUCOSE 98 MG/DL (70-105); TOTAL PROTEIN 6.7 GM/DL (6.4-8.2)
[2020-05-17 22:03] LABS: AMORPHOUS SEDIMENT,UR FEW AMOR URATES /LPF; BACTERIA,URINE NEGATIVE /HPF
[2020-05-17 22:04] LABS: BILIRUBIN,TOTAL 0.2 MG/DL (0.1-1.0); CARBON DIOXIDE 20 MMOL/L (21-32)
[2020-05-17 22:06] LABS: ALKALINE PHOSPHATASE 103 U/L (40-136); GFR ESTIMATED > 60
[2020-05-17 22:07] LABS: BUN/CREATININE RATIO 19
[2020-05-17 22:07] LABS: AMPHETAMINE SCREEN, URINE NEGATIVE (NEGATIVE); BARBITURATE SCREEN URINE NEGATIVE (NEGATIVE); BENZODIAZEPINES SCREEN URINE NEGATIVE (NEGATIVE); CANNABINOID SCREEN, URINE NEGATIVE (NEGATIVE); COCAINE SCREEN URINE NEGATIVE (NEGATIVE); METHADONE STAT NEGATIVE (NEGATIVE); METHAMPHETAMINE SCREEN URINE S NEGATIVE (NEGATIVE); OPIATE SCREEN URINE NEGATIVE (NEGATIVE); OXYCODONE STAT NEGATIVE (NEGATIVE); PROPOXYPHENE STAT NEGATIVE (NEGATIVE); TRICYCLIC ANTIDEPRESSANTS SCRE NEGATIVE (NEGATIVE)
[2020-05-17 22:09] LABS: ALANINE AMINOTRANSFERASE 27 U/L (0-55)
[2020-05-17 22:25] VITALS: BP 127/77
[2020-05-17] MEDS ORDERED: RX-NITROFURANTOIN 100 MG (MACROBID) CAP PPK#2 PO STA (22:26)
[2020-05-17] MEDS ORDERED: NITR-65 PO (22:27)
== END 2020-05-17 22:33 | disposition home or self-care (01) ==
LOC: EDUNIT# 21:13 → ER 21:14
DX: R55 Syncope and collapse (principal); N39.0 Urinary tract infection, site not specified; E07.9 Disorder of thyroid, unspecified; G40.909 Epilepsy, unspecified, not intractable, without status epilepticus; F17.210 Nicotine dependence, cigarettes, uncomplicated; Z82.49 Family history of ischemic heart disease and other diseases of the circulatory system
CPT/HCPCS: 36415; 70450; 72125; 80053; 80306; 81000; 84443; 85025

== ENCOUNTER 2020-05-28 22:53 | Emergency (ER) | payer SELFPAY ==
[~2020-05-28] VITALS: Ht 157 cm; Wt 153.7 kg
[~2020-05-28 22:53] MED LIST changes: +ARIP10TA17; +DULO30CA49; +NITR-65 PO; +TOPI25TA10; +clonazepam
[2020-05-28 22:59] VITALS: BP 123/60
--- NOTE | 2020-05-28 23:14 | ED General ---
General Stated Complaint: SEIZURE Source of Information: Patient Exam Limitations: No Limitations History of Present Illness Date Seen by Provider: May 28, 2020 Time Seen by Provider: 23:00 Initial Comments Patient is a 30-year-old female who presents to the emergency department today with a chief complaint of seizure. Patient has a history of seizures and is on Tegretol and Lamictal as well as Klonopin. Patient states she was at work this evening and was found by coworkers in the shower room at the local [employer] at which she works. Patient denies any injuries to head neck back shoulders or mouth. States she did not bite her tongue. Patient denies any recent illnesses such as fevers chills, cough congestion, shortness of breath. No nausea, vomiting diarrhea or urinary complaints. Patient cannot recall any specific trigger for the seizure. She states her last seizure was sometime in March but her seizures have decreased in frequency since starting her seizure medications. Patient has seen a neurologist at in March of this year. Patient states that she has been on a calorie restriction diet over the course of the last 3 weeks trying to limit herself to 500 to 900 ivis a day. Patient denies any injuries related to the seizure. She does states she has a mild headache. No one else is available at this time to further describe seizure-like activity this evening. Patient does not recall when her last menstrual cycle was but she has had a tubal ligation. 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 Patient denies any decrease in sleep or recent alcohol use. Patient desires to return back to work tomorrow. All other review of systems reviewed and negative except as stated. Timing/Duration: 1 Hour Associated Systoms: Denies Symptoms Allergies and Home Medications Allergies Coded Allergies: No Known Drug Allergies (Unverified , 03/18/17) Home Medications Lamotrigine 25 Mg Tablet, 25 MG PO DAILY, (Reported) Nitrofurantoin Monohyd/M-Cryst 100 Mg Capsule, 1 TAB PO BID Prescribed by: JESSICA GOLD on 05/17/204 Patient Home Medication List Home Medication List Reviewed: Yes Review of Systems Review of Systems Constitutional: see HPI EENTM: no symptoms reported Respiratory: no symptoms reported Cardiovascular: no symptoms reported Gastrointestinal: no symptoms reported Genitourinary: no symptoms reported Musculoskeletal: no symptoms reported Skin: no symptoms reported Psychiatric/Neurological: Seizure Past Seposcs-Tpkvrv-Uidvjy Hx Patient Social History Type Used: Cigarettes 2nd Hand Smoke Exposure: Yes Recent Hopitalizations: No Immunizations Up To Date Tetanus Booster (TDap): Unknown Seasonal Allergies Seasonal Allergies: No Past Medical History Surgeries: Yes Gallbladder, Orthopedic, Tubal Ligation Respiratory: No Cardiac: No Neurological: Yes Headaches /Migraines, Seizure Disorder 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 Disorders: No [employer] 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 10.0oz. 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 Skin: Normal Color, Warm/Dry Progress/Results/Core Measures Suspected Sepsis SIRS Temperature: Pulse: Respiratory Rate: Blood Pressure / Mean: Results/Orders Lab Results Laboratory Tests Test 05/28/20 23:13 Range/Units Glucometer 115 H 70-110 MG/DL My Orders Orders - NATHANIEL CORONADO MD Accucheck Stat ONCE (05/28/20 23:21) Vital Signs/I&O 05/28/20 22:59 Temp 37.0 Pulse 94 Resp 16 B/P (MAP) 123/60 (81) O2 Delivery Room Air Capillary Refill : Progress Note : Time: 23:15 Progress Note 30-year-old female with a history of seizures presents after seizure this evening evaluation today includes a physical exam and complete history. Patient tells me that she recently started a new antiseizure medication in March and that was the time of her last seizure. Patient denies any known triggers although states that she is significantly reducing calories daily to 500 to 900 ivis a day. Patient's blood sugar at the time of evaluation is 115. She has had a tubal ligation and states that she is having normal menses for her. No recent illnesses Patient has no clinical or objective findings that warrants further testing at this time. Patient is encouraged to follow-up with her primary care physician and discuss dieting with him. She verbalizes understanding. All questions were sought and answered. Patient stable for discharge. Departure Impression Primary Impression: Seizure Disposition: HOME, SELF-CARE Condition: Stable Departure-Patient Inst. Decision time for Depature: 23:17 Referrals: MAEVE CALZADA MD (PCP/Family) Primary Care Physician Patient Instructions: Seizures, Adult (DC) Add. Discharge Instructions: Continue home daily medications as previously prescribed. Follow-up with your primary care physician regarding your strict calorie restriction. Eat small frequent meals throughout the day otherwise. Return to the emergency room for any new, concerning or emergent symptoms. Work/School Note: Work Release Form Date Seen in the Emergency Department: May 28, 2020 Return to Work: May 29, 2020 Restrictions: No Restrictions NATHANIEL CORONADO MD May 28, 2020 23:14
== END 2020-05-28 23:25 | disposition home or self-care (01) ==
LOC: EDUNIT# 22:53 → ER 22:55
DX: G40.909 Epilepsy, unspecified, not intractable, without status epilepticus (principal); Z82.49 Family history of ischemic heart disease and other diseases of the circulatory system; Z77.22 Contact with and (suspected) exposure to environmental tobacco smoke (acute) (chronic)
CPT/HCPCS: 82962

== ENCOUNTER 2020-06-20 01:09 | Emergency (ER) | payer SELFPAY ==
[2020-06-20] MEDS ORDERED: KETOROLAC 30 MG/ML VIAL IM ONE (01:45)
[2020-06-20] MEDS ORDERED: ORPHENADRINE 60 MG/2 ML (NORFLEX) AMP (ED ONLY) IM ONE (01:45)
--- NOTE | 2020-06-20 01:45 | ED Neurological Problem ---
General Chief Complaint: Neurological Problems Stated Complaint: SEIZURES Nursing Triage Note: Pt states she has had 5 seizures in the past 4-5 hours. Nursing Sepsis Screen: No Definite Risk Source: patient, family Exam Limitations: no limitations History of Present Illness Date Seen by Provider: Jun 20, 2020 Time Seen by Provider: 01:30 Initial Comments Patient is a 30-year-old female who presents to the emergency department today with a chief complaint of generalized headache after multiple seizures this evening. Patient states that she thinks she has had "5" seizures this evening. Although she is not able to quantify how long they lasted. Her significant other who is at the bedside states that they are brief lasting up to 30 minutes at a time. The patient states that she "clenches up" with her seizures and loses consciousness. Patient states that she has not injured herself during he has seizures. She did fall but states "I will be all right". She did not bite her tongue, she did not have any loss of continence. Patient states that she believes her seizures are more frequent this evening secondary to fatigue with her working hours. Patient states that she got off work at 11 PM. She denies alcohol use. She denies . She states that she has a tubal ligation. No recent illnesses such as fevers, chills, cough, nausea, vomiting, diarrhea. No urinary complaints. She states that she is compliant with her daily medications. She takes Tegretol and Lamictal for her seizures. She states she has an appointment with a neurologist the first week of June. Otherwise patient states she is treated by Dr. Alexander. All other review of systems reviewed and negative except as stated above. Severity: moderate Associated Symptoms: No confusion; fatigue; No fever/chills; loss of consciousness (With seizures); No nausea/vomiting, No paresthesia; seizures Allergies and Home Medications Allergies Coded Allergies: No Known Drug Allergies (Unverified , 03/18/17) Home Medications Lamotrigine 25 Mg Tablet, 25 MG PO DAILY, (Reported) Nitrofurantoin Monohyd/M-Cryst 100 Mg Capsule, 1 TAB PO BID Prescribed by: JESSICA GOLD on 05/17/20 9922 Patient Home Medication List Home Medication List Reviewed: Yes Review of Systems Review of Systems Constitutional: see HPI Eyes: No Symptoms Reported Ears, Nose, Mouth, Throat: no symptoms reported Respiratory: no symptoms reported Cardiovascular: no symptoms reported Gastrointestinal: no symptoms reported Genitourinary: no symptoms reported : No Musculoskeletal: no symptoms reported Psychiatric/Neurological: Headache All Other Systems Reviewed Negative Unless Noted: Yes Past Wvnjcdd-Nfysks-Wwvzpp Hx Patient Social History Alcohol Use: Denies Use Smoking Status: Current Everyday Smoker Type Used: Cigarettes 2nd Hand Smoke Exposure: Yes Recent Infectious Disease Expo: No Recent Hopitalizations: No Immunizations Up To Date Tetanus Booster (TDap): Unknown Seasonal Allergies Seasonal Allergies: No Past Medical History Surgeries: Yes Gallbladder, Orthopedic, Tubal Ligation Respiratory: No Cardiac: No Neurological: Yes Headaches /Migraines, Seizure Disorder 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 Disorders: No T[employer] INTERN History: Tubal Ligation Sexually Transmitted Disease: No HIV/AIDS: No Genitourinary: No Gastrointestinal: No Musculoskeletal: No Endocrine: No HEENT: No Cancer: No Psychosocial: Yes Anxiety, Depression Integumentary: No Blood Disorders: No Family Medical History Drug abuse 19 MOTHER, Age:46 FH: pulmonary embolism G8 BROTHER, Age:25, Onset:20's - 25 Hypertension 19 MOTHER, Age:46 Physical Exam Vital Signs Capillary Refill : Less Than 3 Seconds Height, Weight, BMI Height: 5'2.00" Weight: 310lbs. 10.0oz. 140.978274fc; 62.00 BMI Method:Stated General Appearance: WD/WN, no apparent distress HEENT: PERRL/EOMI Neck: full range of motion, supple Respiratory: lungs clear, normal breath sounds, no respiratory distress Cardiovascular: regular rate, rhythm Gastrointestinal: non tender (Obese), soft, other (Obese) Extremities: normal range of motion, normal inspection Neurologic/Psychiatric: no motor/sensory deficits, alert, normal mood/affect, oriented x 3 Crainal Nerves: normal hearing, normal speech, PERRL Coordination/Gait: normal gait Motor/Sensory: no motor deficit, no sensory deficit Skin: normal color, warm/dry Progress/Results/Core Measures Results/Orders My Orders Orders - NATHANIEL CORONADO MD Ketorolac Injection (Toradol Injection) (06/20/20 01:45) Orphenadrine Inj (Ed Only) (Norflex Inje (06/20/20 01:45) Blood Pressure Mean: 91 Departure Impression Primary Impression: Headache Qualified Codes: G44.209 - Tension-type headache, unspecified, not intractable Disposition: 01 HOME, SELF-CARE Condition: Stable Departure-Patient Inst. Decision time for Depature: 01:47 Referrals: MAEVE ALEXANDER MD (PCP/Family) Primary Care Physician Patient Instructions: Headache, Adult (DC) Add. Discharge Instructions: Continue your daily medications as prescribed. Take your Klonopin when you get home to hopefully help prevent more seizures. Be sure and keep your follow-up with your [facility] neurologist as scheduled. Return to the emergency department for any new, emergent or worsening complaints. NATHANIEL CORONADO MD Jun 20, 2020 01:45
[2020-06-20 02:08] VITALS: BP 142/66
== END 2020-06-20 02:09 | disposition home or self-care (01) ==
LOC: EDUNIT# 01:09 → ER FS 01:12
DX: R51.9 Headache, unspecified (principal); E66.9 Obesity, unspecified; G40.909 Epilepsy, unspecified, not intractable, without status epilepticus; F17.210 Nicotine dependence, cigarettes, uncomplicated; Z68.44 Body mass index [BMI] 60.0-69.9, adult; Z82.49 Family history of ischemic heart disease and other diseases of the circulatory system
CPT/HCPCS: 99284

== ENCOUNTER 2020-06-28 06:50 | Emergency (ER) | payer SELFPAY ==
[~2020-06-28] VITALS: Ht 157.4 cm; Wt 63.6 kg
[2020-06-28 07:20] LABS: BASOPHILS # (AUTO) 0.1 10^3/uL (0.0-0.1); BASOPHILS % (AUTO) 1 % (0-10); EOSINOPHILS # (AUTO) 0.3 10^3/uL (0.0-0.3); EOSINOPHILS % (AUTO) 3 % (0-10); HEMATOCRIT 45 % (35-52); HEMOGLOBIN 14.9 g/dL (11.5-16.0); LYMPHOCYTES # (AUTO) 2.2 10^3/uL (1.0-4.0); LYMPHOCYTES % (AUTO) 23 % (12-44); MEAN CORPUSCULAR HEMOGLOBIN 33 pg (25-34); MEAN CORPUSCULAR HGB CONC 33 g/dL (32-36); MEAN CORPUSCULAR VOLUME 99 fL (80-99); MONOCYTES # (AUTO) 0.9 10^3/uL (0.0-1.0); MONOCYTES % (AUTO) 9 % (0-12); NEUTROPHILS # (AUTO) 6.1 10^3/uL (1.8-7.8); NEUTROPHILS % (AUTO) 64 % (42-75); PLATELET COUNT 266 10^3/uL (130-400); WHITE BLOOD COUNT 9.6 10^3/uL (4.3-11.0)
[2020-06-28 07:42] LABS: PROTHROMBIN TIME PATIENT 13.6 SEC (12.2-14.7)
[2020-06-28 07:44] LABS: ALANINE AMINOTRANSFERASE 26 U/L (0-55); ALBUMIN 3.8 GM/DL (3.2-4.5); ALKALINE PHOSPHATASE 118 U/L (40-136); BILIRUBIN,TOTAL 0.3 MG/DL (0.1-1.0); BUN/CREATININE RATIO 21; CALCIUM 8.6 MG/DL (8.5-10.1); CARBON DIOXIDE 21 MMOL/L (21-32); CHLORIDE 110 MMOL/L (98-107); CREATININE SERUM 0.76 MG/DL (0.60-1.30); GFR ESTIMATED > 60; GLUCOSE 92 MG/DL (70-105); POTASSIUM 3.8 MMOL/L (3.6-5.0); SODIUM 141 MMOL/L (135-145); TOTAL PROTEIN 6.4 GM/DL (6.4-8.2)
[2020-06-28 08:06] LABS: FREE T4 (FREE THYROXINE) 0.78 NG/DL (0.70-1.48)
--- NOTE | 2020-06-28 08:59 | ED Neurological Problem ---
General Chief Complaint: Neurological Problems Stated Complaint: SEIZURE,NOW HAVING CHEST PAIN Nursing Triage Note: TO ED PER W/C REPORTS HAD SEIZURE AT WORK. AND HAS HAD CHEST PAIN FOR SEVERAL DAYS. WHILE IN WAITING ROOM HAD WITNESSED SEIZURE IN WAITNG ROOM ALTHEA GUILLERMO HAS NOT BEEN TAKING HER KLONPIN FOR SEIZURE. CHEST PAIN WORSE ON INSPIRATION. WORKS AT [employer] HAD NEG COVID TEST ON TUESDAY. Nursing Sepsis Screen: No Definite Risk Source: patient, old records Exam Limitations: no limitations History of Present Illness Date Seen by Provider: Jun 28, 2020 Time Seen by Provider: 06:53 Initial Comments This 30-year-old young lady presented to the emergency room with complaint of chest pain after having a seizure this morning while getting ready for work. She has known seizure disorder. 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 She struck the back of her head. This provider was there to witness the event. C-spine precautions were observed until patient stopped seizing which was approximately 1 minute and she became alert. She was then able to answer questions. She denied any pain. Neck was palpated and there was no tenderness. She was then able to get onto an exam bed with assistance. Patient reports known seizure disorder with prior work-up including MRI and neurology consult. She reports recently having poor compliance with Klonopin as it makes her too sleepy to work. She has not taken any Klonopin today. She is taking Lamictal and Topamax. Her chest pain is reproducible with palpation. She has been noticing this intermittently for a couple of weeks. Allergies and Home Medications Allergies Coded Allergies: No Known Drug Allergies (Unverified , 03/18/17) Home Medications Lamotrigine 25 Mg Tablet, 25 MG PO DAILY, (Reported) Levetiracetam 500 Mg Tablet, 500 MG PO BID Prescribed by: VICENTA BLACKWELL on 06/28/20 1045 Nitrofurantoin Monohyd/M-Cryst 100 Mg Capsule, 1 TAB PO BID Prescribed by: JESSICA GOLD on 05/17/207 Patient Home Medication List Home Medication List Reviewed: Yes Review of Systems Review of Systems Constitutional: no symptoms reported Eyes: No Symptoms Reported Ears, Nose, Mouth, Throat: no symptoms reported Respiratory: no symptoms reported Cardiovascular: see HPI Gastrointestinal: no symptoms reported Genitourinary: no symptoms reported Musculoskeletal: see HPI Skin: no symptoms reported Psychiatric/Neurological: See HPI Endocrine: No Symptoms Reported Hematologic/Lymphatic: No Symptoms Reported Past Kjaunaq-Oyulhe-Zzukdg Hx Past Med/Social Hx: Reviewed Nursing Past Med/Soc Hx Patient Social History Alcohol Use: Denies Use Smoking Status: Current Everyday Smoker Type Used: Cigarettes 2nd Hand Smoke Exposure: Yes Recent Infectious Disease Expo: No Recent Hopitalizations: No Immunizations Up To Date Tetanus Booster (TDap): Unknown Seasonal Allergies Seasonal Allergies: No Past Medical History Surgeries: Yes Gallbladder, Orthopedic, Tubal Ligation Respiratory: No Cardiac: No Neurological: Yes Headaches /Migraines, Seizure Disorder 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 Sexually Transmitted Disease: No HIV/AIDS: No Genitourinary: No Gastrointestinal: No Musculoskeletal: No Endocrine: No HEENT: No Cancer: No Psychosocial: Yes Anxiety, Depression Integumentary: No Blood Disorders: No Family Medical History Drug abuse 19 MOTHER, Age:46 FH: pulmonary embolism G8 BROTHER, Age:25, Onset:20's - 25 Hypertension 19 MOTHER, Age:46 Physical Exam Vital Signs Vital Signs - First Documented 06/28/20 06:58 Temp 36.0 Pulse 82 Resp 18 B/P (MAP) 113/70 (84) Pulse Ox 99 O2 Delivery Room Air Capillary Refill : Less Than 3 Seconds Height, Weight, BMI Height: 5'2.00" Weight: 310lbs. 10.0oz. 140.430057xi; 25.00 BMI Method:Stated General Appearance: WD/WN, mild distress HEENT: PERRL/EOMI, pharynx normal Neck: non-tender, supple, normal inspection Respiratory: lungs clear, normal breath sounds, no respiratory distress, other (Anterior central chest tender to palpation) Cardiovascular: regular rate, rhythm, no edema, no murmur Gastrointestinal: normal bowel sounds, non tender, soft Extremities: normal inspection, no pedal edema Neurologic/Psychiatric: manager global II-XII nml as tested, no motor/sensory deficits, alert, normal mood/affect, oriented x 3 Crainal Nerves: normal hearing, normal speech, PERRL Motor/Sensory: no motor deficit, no sensory deficit Skin: normal color, warm/dry Progress/Results/Core Measures Results/Orders Lab Results Laboratory Tests Test 06/28/20 07:10 06/28/20 07:13 06/28/20 07:19 06/28/20 09:58 Range/Units White Blood Count 9.6 4.3-11.0 10^3/uL Red Blood Count 4.57 3.80-5.11 10^6/uL Hemoglobin 14.9 11.5-16.0 g/dL Hematocrit 45 35-52 % Mean Corpuscular Volume 99 80-99 fL Mean Corpuscular Hemoglobin 33 25-34 pg Mean Corpuscular Hemoglobin Concent 33 32-36 g/dL Red Cell Distribution Width 12.2 10.0-14.5 % Platelet Count 266 130-400 10^3/uL Mean Platelet Volume 9.0 9.0-12.2 fL Immature Granulocyte % (Auto) 0 % Neutrophils (%) (Auto) 64 42-75 % Lymphocytes (%) (Auto) 23 12-44 % Monocytes (%) (Auto) 9 0-12 % Eosinophils (%) (Auto) 3 0-10 % Basophils (%) (Auto) 1 0-10 % Neutrophils # (Auto) 6.1 1.8-7.8 10^3/uL Lymphocytes # (Auto) 2.2 1.0-4.0 10^3/uL Monocytes # (Auto) 0.9 0.0-1.0 10^3/uL Eosinophils # (Auto) 0.3 0.0-0.3 10^3/uL Basophils # (Auto) 0.1 0.0-0.1 10^3/uL Immature Granulocyte # (Auto) 0.0 0.0-0.1 10^3/uL Prothrombin Time 13.6 12.2-14.7 SEC INR Comment 1.0 0.8-1.4 Activated Partial Thromboplast Time 30 24-35 SEC D-Dimer 0.49 0.00-0.49 UG/ML Sodium Level 141 135-145 MMOL/L Potassium Level 3.8 3.6-5.0 MMOL/L Chloride Level 110 H 98-107 MMOL/L Carbon Dioxide Level 21 21-32 MMOL/L Anion Gap 10 5-14 MMOL/L Blood Urea Nitrogen 16 7-18 MG/DL Creatinine 0.76 0.60-1.30 MG/DL Estimat Glomerular Filtration Rate > 60 BUN/Creatinine Ratio 21 Glucose Level 92 70-105 MG/DL Calcium Level 8.6 8.5-10.1 MG/DL Corrected Calcium 8.8 8.5-10.1 MG/DL Magnesium Level 2.0 1.6-2.4 MG/DL Total Bilirubin 0.3 0.1-1.0 MG/DL Aspartate Amino Transf (AST/SGOT) 13 5-34 U/L Alanine Aminotransferase (ALT/SGPT) 26 0-55 U/L Alkaline Phosphatase 118 40-136 U/L Myoglobin 35.4 10.0-92.0 NG/ML Troponin I < 0.028 < 0.028 <0.028 NG/ML Total Protein 6.4 6.4-8.2 GM/DL Albumin 3.8 3.2-4.5 GM/DL Thyroid Stimulating Hormone (TSH) 2.09 0.35-4.94 UIU/ML Free Thyroxine 0.78 0.70-1.48 NG/DL Serum Test, Qualitative NEGATIVE NEGATIVE Coronavirus 2019 (ARJUN) Negative Negative Glucometer 90 70-110 MG/DL My Orders Orders - VICENTA MORTENSEN MD Cbc With Automated Diff (06/28/20 07:06) Magnesium (06/28/20 07:06) Chest 1 View, Ap/Pa Only (06/28/20 07:06) Ekg Tracing (06/28/20 07:06) Comprehensive Metabolic Panel (06/28/20 07:06) Myoglobin Serum (06/28/20 07:06) Protime With Inr (06/28/20 07:06) Partial Thromboplastin Time (06/28/20 07:06) O2 (06/28/20 07:06) Monitor-Rhythm Ecg Trace Only (06/28/20 07:06) Ed Iv/Invasive Line Start (06/28/20 07:06) Fibrin Degradation Products (06/28/20 07:06) Troponin I (06/28/20 07:06) Accucheck Stat ONCE (06/28/20 07:06) Covid 19 Inhouse Test (06/28/20 07:06) Hcg,Qualitative Serum (06/28/20 07:06) Free T4 (Free Thyroxine) (06/28/20 07:11) Thyroid Stimulating Hormone (06/28/20 07:11) Levetiracetam Injection (Keppra Injectio (06/28/20 07:30) Troponin I (06/28/20 09:10) Fentanyl Inj (Sublimaze Injection) (06/28/20 09:00) Ct Head/Cervical Spine Wo (06/28/20 08:55) Ketorolac Injection (Toradol Injection) (06/28/20 10:30) Medications Given in ED Current Medications Medications Dose Ordered Sig/Syed Route Start Time Stop Time Status Last Admin Dose Admin Fentanyl Citrate 50 mcg ONCE ONCE IVP 06/28/20 09:00 06/28/20 09:01 DC 06/28/20 08:58 50 MCG Ketorolac Tromethamine 30 mg ONCE ONCE IVP 06/28/20 10:30 06/28/20 10:31 DC 06/28/20 10:51 30 MG Vital Signs/I&O 06/28/20 06/28/20 06/28/20 06:58 09:05 11:05 Temp 36.0 Pulse 82 86 90 Resp 18 18 18 B/P (MAP) 113/70 (84) 128/81 (97) 125/82 Pulse Ox 99 94 98 O2 Delivery Room Air Room Air Room Air Blood Pressure Mean: 84 FSBG Bedside Testing Finger Stick Blood Glucose: 90 Blood Glucose Action Taken: DR NOTIFIED Progress Progress Note #1: Time: 08:56 Progress Note Initial work-up was unremarkable. Patient is now complaining of headache. Because she did strike her head on the floor when she fell out of the chair, we will obtain a CT of the head and C-spine. Patient was reexamined and not found to have any cervical spine tenderness. She denies any neck pain. Fentanyl is being given for her headache. Progress Note #2: Progress Note Work-up was unremarkable. There was no evidence of injury. A dose of IV Keppra was given and a prescription was given to follow. Close follow-up with her neurologist was recommended. She reports an appointment is already scheduled for Tuesday. A note for work was provided. Incidental thyromegaly was noted. She was advised to have an ultrasound on an outpatient basis. Initial troponin and EKG were unremarkable. Repeat troponin was also normal. Initial ECG Impression Date: Jun 28, 2020 Initial ECG Impression Time: 07:00 Initial ECG Rate: 84 Initial ECG Rhythm: Normal Sinus Comment Normal sinus rhythm with no ST elevation or depression. No abnormal intervals or axis deviation. Diagnostic Imaging Diagonstic Imaging: Xray Plain Films/CT/US/NM/MRI: chest Comments Chest x-ray viewed by me and report reviewed. See report below: NAME: OSCAR HAYWOOD [facility] REC#: [id number] PT STATUS: REG ER : 1990 PHYSICIAN: VICENTA MORTENSEN MD ADMIT DATE: 06/28/20/ER Signed Date of Exam:06/28/20 CHEST 1 VIEW, AP/PA ONLY HISTORY: Chest pain COMPARISON: 10/31/2019 TECHNIQUE: Single frontal view of the chest FINDINGS: Lung volumes are normal. There is mild central vascular congestion. There is haziness of the lungs due to the overlying soft tissues but no consolidation is seen. There is no pleural effusion or pneumothorax. The cardiac silhouette is normal in size. IMPRESSION: 1. Mild central vascular congestion. Dictated by: Dictated on workstation # [id number] Dict: 06/28/20 0848 Trans: 06/28/20 1025 [facility] [phone] Interpreted by: PEDRO PABLO CASTORENA MD Electronically signed by: PEDRO PABLO CASTORENA MD 06/28/20 1025 Diagonstic Imaging: CT Plain Films/CT/US/NM/MRI: c-spine, head Comments CT head and C-spine viewed by me and report reviewed. See report below: NAME: OSCAR HAYWOOD [facility] REC#: [id number] PT STATUS: REG ER : 1990 PHYSICIAN: VICENTA MORTENSEN MD ADMIT DATE: 06/28/20/ER Signed Date of Exam:06/28/20 CT HEAD/CERVICAL SPINE WO PROCEDURE: CT head and CT cervical spine without contrast. TECHNIQUE: Multiple contiguous axial images were obtained through the brain and cervical spine without the use of intravenous contrast. Sagittal and coronal reformations through the cervical spine were then performed. Auto Exposure Controls were utilized during the CT exam to meet ALARA standards for radiation dose reduction. INDICATION: Fall, head and neck injury COMPARISON: 05/17/2020 FINDINGS: CT HEAD: Ventricles and cortical sulci are age-appropriate. There is no midline shift or mass effect. No acute intracranial hemorrhage is seen. There is no CT evidence of acute territorial ischemia. The calvarium appears intact. Visualized paranasal sinuses are clear. CT CERVICAL SPINE: No acute fracture is seen in the cervical spine. There is some loss of signal inferiorly due to body habitus. Alignment is normal. No bony fragments or hyperdense fluid collections are seen in the spinal canal. Soft tissues about the cervical spine demonstrate no acute abnormality. There does appear to be enlargement of the right thyroid gland. IMPRESSION: 1. No acute intracranial hemorrhage or calvarium fracture. 2. No acute osseous abnormality is seen in the cervical spine. 3. Enlarged right thyroid gland. Consider nonemergent ultrasound for follow-up. Dictated by: Dictated on workstation # [id number] Dict: 06/28/20 0943 Trans: 06/28/20 1027 [facility] [phone] Interpreted by: PEDRO PABLO CASTORENA MD Electronically signed by: PEDRO PABLO CASTORENA MD 06/28/20 1027 Departure Impression Primary Impression: Seizure Additional Impressions: Fall from chair Qualified Codes: W07.XXXA - Fall from chair, initial encounter Head injury Qualified Codes: S09.90XA - Unspecified injury of head, initial encounter Enlarged thyroid Chest wall pain Disposition: HOME, SELF-CARE Condition: Improved Departure-Patient Inst. Referrals: MAEVE CALZADA MD (PCP/Family) Primary Care Physician Patient Instructions: Seizures, Adult (DC) Add. Discharge Instructions: Drink plenty of clear liquids and get plenty of rest over the next couple of days. Strenuous activity and cognitive stressors or excessive cognitive stimulation until you follow-up with your neurologist. Continue your medications as previously prescribed except Klonopin. Add Keppra as prescribed starting this evening. Do not drive or operate machinery until you are cleared by your neurologist. Avoid any activity that may predispose you to injury should you have another seizure. Such activities might include swimming, bike riding, use of any heights, contact sports, etc. Call with any questions or concerns. Return to the emergency room if you have any worsening condition, multiple recurrent seizures over the weekend, or seizures lasting longer than 1 minute. If you have recurrent brief seizures through the weekend, you may need to restart your Klonopin until your follow-up with your neurologist on Tuesday. You also had an incidental finding of enlarged thyroid on your CT scan. This should be followed by your primary care provider and an ultrasound of your thyroid should be obtained in the near future. Your thyroid labs were unremarkable. All discharge instructions reviewed with patient and/or family. Voiced unde rstanding. Scripts Levetiracetam (Keppra) 500 Mg Tablet 500 MG PO BID, #20 TAB Prov: VICENTA MORTENSEN MD 06/28/20 Work/School Note: Work Release Form Date Seen in the Emergency Department: Jun 28, 2020 Return to Work: Jul 09, 2020 Restrictions: Need Release from Doctor Copy Copies To 1: MAEVE CALZADA MD, JOSHUA T MD Jun 28, 2020 08:59
[2020-06-28] MEDS ORDERED: fentaNYL INJ 100 MCG/2 ML AMP IVP ONE (09:00)
--- NOTE | 2020-06-28 09:51 | Diagnostic Imaging Report ---
PROCEDURE: CT head and CT cervical spine without contrast. TECHNIQUE: Multiple contiguous axial images were obtained through the brain and cervical spine without the use of intravenous contrast. Sagittal and coronal reformations through the cervical spine were then performed. Auto Exposure Controls were utilized during the CT exam to meet ALARA standards for radiation dose reduction. INDICATION: Fall, head and neck injury COMPARISON: 05/17/2020 FINDINGS: CT HEAD: Ventricles and cortical sulci are age-appropriate. There is no midline shift or mass effect. No acute intracranial hemorrhage is seen. There is no CT evidence of acute territorial ischemia. The calvarium appears intact. Visualized paranasal sinuses are clear. CT CERVICAL SPINE: No acute fracture is seen in the cervical spine. There is some loss of signal inferiorly due to body habitus. Alignment is normal. No bony fragments or hyperdense fluid collections are seen in the spinal canal. Soft tissues about the cervical spine demonstrate no acute abnormality. There does appear to be enlargement of the right thyroid gland. IMPRESSION: 1. No acute intracranial hemorrhage or calvarium fracture. 2. No acute osseous abnormality is seen in the cervical spine. 3. Enlarged right thyroid gland. Consider nonemergent ultrasound for follow-up. Dictated by: Dictated on workstation # [id number]
[2020-06-28] MEDS ORDERED: KETOROLAC 30 MG/ML VIAL IVP ONE (10:30)
[2020-06-28] MEDS ORDERED: LEVE500T99 PO (10:45)
[2020-06-28 11:05] VITALS: BP 125/82
== END 2020-06-28 11:19 | disposition home or self-care (01) ==
LOC: EDUNIT# 06:50 → ER 06:52
DX: S09.90XA Unspecified injury of head, initial encounter (principal); G40.909 Epilepsy, unspecified, not intractable, without status epilepticus; R07.89 Other chest pain; T42.4X6A Underdosing of benzodiazepines, initial encounter; F41.9 Anxiety disorder, unspecified; F32.9 Major depressive disorder, single episode, unspecified; G43.909 Migraine, unspecified, not intractable, without status migrainosus; F17.210 Nicotine dependence, cigarettes, uncomplicated; Z91.14 Patient's other noncompliance with medication regimen; Z20.822 Contact with and (suspected) exposure to COVID-19; Z79.899 Other long term (current) drug therapy; Z32.02 Encounter for pregnancy test, result negative; W07.XXXA Fall from chair, initial encounter
CPT/HCPCS: 70450; 71045; 72125; 80053; 82962; 83735; 83874; 84439; 84443; 84484; 84703; 85025; 85379; 85610; 85730; 93005; 93041; 99284; U0002; 36415; 87635

== ENCOUNTER 2020-06-29 18:37 | Emergency (ER) | payer SELFPAY ==
[~2020-06-29] VITALS: Ht 157 cm; Wt 154.0 kg
[~2020-06-29 18:37] MED LIST changes: +LEVE500T99 PO
[2020-06-29] MEDS ORDERED: LORazepam INJ 2 MG/ML (ATIVAN) VIAL IVP ONE (18:45)
[2020-06-29] MEDS ORDERED: NS IV 1000 ML 1,000 ML IV SCH (18:45)
[2020-06-29 18:54] LABS: HEMATOCRIT 41 % (35-52); HEMOGLOBIN 14.1 G/DL (11.5-16.0); MEAN CORPUSCULAR HEMOGLOBIN 33 PG (25-34); MEAN CORPUSCULAR HGB CONC 35 G/DL (32-36); MEAN CORPUSCULAR VOLUME 95 FL (80-99); MEAN PLATELET VOLUME 9.2 FL (7.4-10.4); NEUTROPHILS % (AUTO) 69 % (42-75); PLATELET COUNT 278 10^3/uL (130-400); WHITE BLOOD COUNT 10.5 10^3/uL (4.3-11.0)
[2020-06-29 18:55] LABS: BASOPHILS # (AUTO) 0.1 10^3/uL (0.0-0.1); BASOPHILS % (AUTO) 1 % (0-10); EOSINOPHILS # (AUTO) 0.2 10^3/uL (0.0-0.3); EOSINOPHILS % (AUTO) 2 % (0-10); LYMPHOCYTES # (AUTO) 2.2 X 10^3 (1.0-4.0); LYMPHOCYTES % (AUTO) 21 % (12-44); MONOCYTES # (AUTO) 0.7 X 10^3 (0.0-1.0); MONOCYTES % (AUTO) 7 % (0-12); NEUTROPHILS # (AUTO) 7.3 X 10^3 (1.8-7.8)
[2020-06-29 19:15] LABS: BUN/CREATININE RATIO 21; CARBON DIOXIDE 22 MMOL/L (21-32); CHLORIDE 107 MMOL/L (98-107); CREATININE SERUM 0.89 MG/DL (0.60-1.30); GFR ESTIMATED > 60; GLUCOSE 112 MG/DL (70-105); SODIUM 137 MMOL/L (135-145)
[2020-06-29 19:16] LABS: ALANINE AMINOTRANSFERASE 20 U/L (0-55); ALBUMIN 3.7 GM/DL (3.2-4.5); ALKALINE PHOSPHATASE 111 U/L (40-136); BILIRUBIN,TOTAL 0.2 MG/DL (0.1-1.0); CALCIUM 8.5 MG/DL (8.5-10.1); TOTAL PROTEIN 6.3 GM/DL (6.4-8.2)
--- NOTE | 2020-06-29 19:25 | ED General ---
General Chief Complaint: Neurological Problems Stated Complaint: SEIZURES Nursing Triage Note: Patient arrived to the ED via EMS for chief complaint of seizure activity. Patient's states the seizure lasted approximatey 5-10 minutes, and that patient seized again while being loaded into the ambulance. Patient reports she takes tegretol and lamictal, states she has been having at least 2 seizures every day recently. She reports a physician prescribed her keppra, but she is unable to take it because it makes her "crazy." She reports she sees a neurologist at and has an appointment on Tuesday. Patient had a third seizure lasting 2 minutes on arrival to the ED. Nursing Sepsis Screen: No Definite Risk Source of Information: Patient, EMS Exam Limitations: No Limitations History of Present Illness Date Seen by Provider: Jun 29, 2020 Time Seen by Provider: 18:35 Initial Comments Patient is a 30-year-old female with history of epilepsy who had 2 witnessed tonic-clonic seizures in public. 1 [facility] and second upon transport by EMS. Patient has daily seizures despite being compliant with her Lamictal and Tegretol. She is managed by a neurologist at [facility]. Each seizure today lasted between 5 to 10 minutes and was by a postictal period. She denies biting her tongue, injury or pain complaint. Patient given 1 mg of Ativan IV on arrival. No recent illnesses or missed medications. No other symptoms or complaints. Additional history by EMS services Timing/Duration: 1/2 Hour Severity: Moderate Modifying Factors: improves with Other Associated Systoms: Seizure, Other Allergies and Home Medications Allergies Coded Allergies: No Known Drug Allergies (Unverified , 03/18/17) Home Medications Lamotrigine 25 Mg Tablet, 25 MG PO DAILY, (Reported) Levetiracetam 500 Mg Tablet, 500 MG PO BID Prescribed by: VICENTA BLACKWELL on 06/28/20 1045 Nitrofurantoin Monohyd/M-Cryst 100 Mg Capsule, 1 TAB PO BID Prescribed by: JESSICA GOLD on 05/17/207 Patient Home Medication List Home Medication List Reviewed: Yes Review of Systems Review of Systems Constitutional: see HPI EENTM: see HPI Respiratory: see HPI Cardiovascular: see HPI Gastrointestinal: see HPI Genitourinary: see HPI Musculoskeletal: see HPI Skin: see HPI Psychiatric/Neurological: See HPI Hematologic/Lymphatic: See HPI All Other Systems Reviewed Negative Unless Noted: Yes Past Aakpmfp-Cvhccw-Jypdpi Hx Past Med/Social Hx: Reviewed Nursing Past Med/Soc Hx Patient Social History Alcohol Use: Denies Use Smoking Status: Current Everyday Smoker Type Used: Cigarettes 2nd Hand Smoke Exposure: Yes Recent Infectious Disease Expo: No Recent Hopitalizations: No Immunizations Up To Date Tetanus Booster (TDap): Unknown Seasonal Allergies Seasonal Allergies: No Past Medical History Surgeries: Yes Gallbladder, Orthopedic, Tubal Ligation Respiratory: No Cardiac: No Neurological: Yes Headaches /Migraines, Seizure Disorder 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 Disorders: No [employer] History: Tubal Ligation Sexually Transmitted Disease: No HIV/AIDS: No Genitourinary: No Gastrointestinal: No Musculoskeletal: No Endocrine: No HEENT: No Cancer: No Psychosocial: Yes Anxiety, Depression Integumentary: No Blood Disorders: No Family Medical History Drug abuse 19 MOTHER, Age:46 FH: pulmonary embolism G8 BROTHER, Age:25, Onset:20's - 25 Hypertension 19 MOTHER, Age:46 Physical Exam Vital Signs Vital Signs - First Documented 06/29/20 18:42 Temp 36.4 Pulse 93 Resp 16 B/P (MAP) 124/72 (89) Pulse Ox 98 O2 Delivery Room Air Capillary Refill : Less Than 3 Seconds Height, Weight, BMI Height: 5'2.00" Weight: 310lbs. 10.0oz. 140.524875uq; 62.00 BMI Method:Stated General Appearance: No Apparent Distress, Anxious Eyes: Bilateral Eye Normal Inspection, Bilateral Eye PERRL, Bilateral Eye EOMI HEENT: PERRL/EOMI, Normal ENT Inspection, Pharynx Normal, Moist Mucous Membranes Neck: Non Tender, Supple Respiratory: Chest Non Tender, Lungs Clear Cardiovascular: Regular Rate, Rhythm Gastrointestinal: Soft Back: Normal Inspection Neurologic/Psychiatric: Alert, Oriented x3, No Motor/Sensory Deficits, in home nanny II- XII Norm as Tested Skin: Normal Color Lymphatic: No Adenopathy Focused Exam Sepsis Stage: Ruled Out Progress/Results/Core Measures Suspected Sepsis Recent Fever Within 48 Hours: No Infection Criteria Present: None New/Unexplained Altered Menta: No Sepsis Screen: No Definite Risk SIRS Temperature: Pulse: 93 Respiratory Rate: 16 Laboratory Tests 06/29/20 18:45: White Blood Count 10.5 Blood Pressure 124 /72 Mean: 89 Laboratory Tests 06/29/20 18:45: Creatinine 0.89, Platelet Count 278, Total Bilirubin 0.2 Results/Orders Lab Results Laboratory Tests Test 06/29/20 18:45 Range/Units White Blood Count 10.5 4.3-11.0 10^3/uL Red Blood Count 4.27 L 4.35-5.85 10^6/uL Hemoglobin 14.1 11.5-16.0 G/DL Hematocrit 41 35-52 % Mean Corpuscular Volume 95 80-99 FL Mean Corpuscular Hemoglobin 33 25-34 PG Mean Corpuscular Hemoglobin Concent 35 32-36 G/DL Red Cell Distribution Width 12.4 10.0-14.5 % Platelet Count 278 130-400 10^3/uL Mean Platelet Volume 9.2 7.4-10.4 FL Immature Granulocyte % (Auto) 0 % Neutrophils (%) (Auto) 69 42-75 % Lymphocytes (%) (Auto) 21 12-44 % Monocytes (%) (Auto) 7 0-12 % Eosinophils (%) (Auto) 2 0-10 % Basophils (%) (Auto) 1 0-10 % Neutrophils # (Auto) 7.3 1.8-7.8 X 10^3 Lymphocytes # (Auto) 2.2 1.0-4.0 X 10^3 Monocytes # (Auto) 0.7 0.0-1.0 X 10^3 Eosinophils # (Auto) 0.2 0.0-0.3 10^3/uL Basophils # (Auto) 0.1 0.0-0.1 10^3/uL Immature Granulocyte # (Auto) 0.0 0.0-0.1 10^3/uL Sodium Level 137 135-145 MMOL/L Potassium Level 4.0 3.6-5.0 MMOL/L Chloride Level 107 98-107 MMOL/L Carbon Dioxide Level 22 21-32 MMOL/L Anion Gap 8 5-14 MMOL/L Blood Urea Nitrogen 19 H 7-18 MG/DL Creatinine 0.89 0.60-1.30 MG/DL Estimat Glomerular Filtration Rate > 60 BUN/Creatinine Ratio 21 Glucose Level 112 H 70-105 MG/DL Calcium Level 8.5 8.5-10.1 MG/DL Corrected Calcium 8.7 8.5-10.1 MG/DL Total Bilirubin 0.2 0.1-1.0 MG/DL Aspartate Amino Transf (AST/SGOT) 13 5-34 U/L Alanine Aminotransferase (ALT/SGPT) 20 0-55 U/L Alkaline Phosphatase 111 40-136 U/L Total Protein 6.3 L 6.4-8.2 GM/DL Albumin 3.7 3.2-4.5 GM/DL My Orders Orders - IFTIKHAR ESCUDERO DO Cbc With Automated Diff (06/29/20 18:42) Comprehensive Metabolic Panel (06/29/20 18:42) Urine Bedside (06/29/20 18:42) Ns Iv 1000 Ml (Sodium Chloride 0.9%) (06/29/20 18:45) Lorazepam Injection (Ativan Injection) (06/29/20 18:45) Medications Given in ED Current Medications Medications Dose Ordered Sig/Syed Route Start Time Stop Time Status Last Admin Dose Admin Lorazepam 1 mg ONCE ONCE IVP 06/29/20 18:45 06/29/20 18:46 DC 06/29/20 18:52 1 MG Vital Signs/I&O 06/29/20 18:42 Temp 36.4 Pulse 93 Resp 16 B/P (MAP) 124/72 (89) Pulse Ox 98 O2 Delivery Room Air Capillary Refill : Less Than 3 Seconds Blood Pressure Mean: 89 Departure Communication (Admissions) Lab studies reviewed. Ativan given. Patient returned to baseline in the emergency department. Will discharge home with instructions to follow-up with neurologist for further management. Return precautions reviewed. Patient verbalizes understanding agreement discharge instructions prior to departure. Impression Primary Impression: Breakthrough seizure Disposition: 01 HOME, SELF-CARE Condition: Stable Departure-Patient Inst. Referrals: MAEVE CALZADA MD (PCP/Family) Primary Care Physician Patient Instructions: Seizures, Adult (DC) Add. Discharge Instructions: Please follow-up with your neurologist for further management of seizure disorders. In the meantime continue to take all medications as directed. All discharge instructions reviewed with patient and/or family. Voiced understanding. IFTIKHAR ESCUDERO DO Jun 29, 2020 19:25
[2020-06-29 19:31] VITALS: BP 146/82
== END 2020-06-29 19:31 | disposition home or self-care (01) ==
LOC: EDUNIT# 18:37 → ER FS 18:40
DX: G40.89 Other seizures (principal); F41.9 Anxiety disorder, unspecified; F32.9 Major depressive disorder, single episode, unspecified
CPT/HCPCS: 36415; 80053; 85025

== ENCOUNTER 2020-08-09 17:19 | Emergency (ER) | payer SELFPAY ==
[~2020-08-09] VITALS: Ht 157.4 cm; Wt 154.5 kg
[2020-08-09] MEDS ORDERED: clonazePAM 0.5 MG (KlonoPIN) TAB PO ONE (17:30)
[2020-08-09] MEDS ORDERED: ACETAMINOPHEN 500 MG TAB (TYLENOL) PO ONE (17:30)
--- NOTE | 2020-08-09 17:38 | ED Neurological Problem ---
General Stated Complaint: SEIZURE Source: patient Exam Limitations: no limitations History of Present Illness Date Seen by Provider: August 09, 2020 Time Seen by Provider: 16:59 Initial Comments Patient presents ER by EMS from her place of work at [employer] with chief complaint she felt hot and flushed and then passed out striking the top of her head against the vitals cart on her way down. She says she does not want her employer to know but she has a seizure disorder and is on 6 different medications for it. She is followed by Dr. Calzada and a neurologist at who she recently started seeing. She has a history of epilepsy and has been having multiple seizures today her third fifth 1. Has been taking her medications in cluding Tegretol Lamictal Klonopin one time as dosed appropriately and does not have any other symptoms. She is not having fevers chills nausea vomiting diarrhea, cough, shortness of air, chest pain, malaise, rash etc. After speaking to her she does not really want to have any work-up done in the ER but rather just go home and follow-up with Dr. Calzada outpatient. Allergies and Home Medications Allergies Coded Allergies: No Known Drug Allergies (Unverified , 03/18/17) Home Medications Lamotrigine 25 Mg Tablet, 25 MG PO DAILY, (Reported) Levetiracetam 500 Mg Tablet, 500 MG PO BID Prescribed by: VICENTA BLACKWELL on 06/28/20 1045 Nitrofurantoin Monohyd/M-Cryst 100 Mg Capsule, 1 TAB PO BID Prescribed by: JESSICA GOLD on 05/17/207 Patient Home Medication List Home Medication List Reviewed: Yes Review of Systems Review of Systems Constitutional: No chills, No diaphoresis Eyes: Denies Blindness, Denies Drainage Ears, Nose, Mouth, Throat: denies ear pain, denies ear discharge Respiratory: No cough, No short of breath Cardiovascular: No edema, No palpitations Gastrointestinal: No abdominal pain, No nausea, No vomiting Genitourinary: No discharge, No dysuria Musculoskeletal: No back pain, No joint pain All Other Systems Reviewed Negative Unless Noted: Yes Past Hlgyzgc-Oyyjwv-Dzwsyc Hx Patient Social History Alcohol Use: Denies Use Smoking Status: Current Everyday Smoker Type Used: Cigarettes 2nd Hand Smoke Exposure: Yes Recent Hopitalizations: No Immunizations Up To Date Tetanus Booster (TDap): Unknown Seasonal Allergies Seasonal Allergies: No Past Medical History Surgeries: Yes Gallbladder, Orthopedic, Tubal Ligation Respiratory: No Cardiac: No Neurological: Yes Headaches /Migraines, Seizure Disorder 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 10.0oz. 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 II-XII nml as tested, no motor/sensory deficits, alert, normal mood/affect, oriented x 3 Crainal Nerves: normal hearing, normal speech, PERRL Coordination/Gait: normal gait Motor/Sensory: no motor deficit, no sensory deficit Skin: normal color, warm/dry Progress/Results/Core Measures Results/Orders My Orders Orders - LAUREN CAREY Clonazepam Tablet (Klonopin Tablet) (08/09/20 17:30) Acetaminophen Tablet (Tylenol Tablet) (08/09/20 17:30) Medications Given in ED Current Medications Medications Dose Ordered Sig/Syed Route Start Time Stop Time Status Last Admin Dose Admin Acetaminophen 1,000 mg ONCE ONCE PO 08/09/20 17:30 08/09/20 17:31 DC 08/09/20 18:03 1,000 MG Clonazepam 0.5 mg ONCE ONCE PO 08/09/20 17:30 08/09/20 17:31 DC 08/09/20 18:03 0.5 MG Vital Signs/I&O 08/09/20 08/09/20 17:19 18:07 Temp 36.0 Pulse 104 109 Resp 18 18 B/P (MAP) 139/88 (105) 120/79 Pulse Ox 96 98 O2 Delivery Room Air Room Air Progress Progress Note : Time: 17:34 Progress Note Given the number of seizures she had today would be reasonable to look and rule out infections or anything else that could be causing changes in her bodies chemistry that might contribute to psy-od-ftstnjo epilepsy however this patient seems to have nqg-zm-udorcsn epilepsy at baseline which is why her PCP has referred her on to neurology. We gave her an extra dose of Klonopin and a Tylenol for her head. We discussed concussion and head observation as well as return precautions. Since he does not want to have any work-up will encourage her to follow-up outpatient which she said she would do. Departure Impression Primary Impression: Seizure Additional Impression: Head injury Qualified Codes: S09.90XA - Unspecified injury of head, initial encounter Disposition: 01 HOME, SELF-CARE Condition: Stable Departure-Patient Inst. Decision time for Depature: 17:36 Referrals: MAEVE CALZADA MD (PCP/Family) Primary Care Physician Patient Instructions: Head Injury Observation (DC), Seizures, Adult (DC) Add. Discharge Instructions: Plan to follow-up with your primary care provider next week to discuss appropriate medication changes. Continue taking your medicines as prescribed. Return to the ER promptly if you are having seizures lasting greater than 10 minutes or ccgu-vh-niag seizures that you never wake up from lasting more than 30 minutes. Return to the ER if you are having any confusion or other worrisome symptoms related to your head injury such as difficulty walking, eating, uncontrollable n ausea or vomiting. Work/School Note: Work Release Form Date Seen in the Emergency Department: August 09, 2020 Return to Work: August 10, 2020 Restrictions: No Restrictions Copy Copies To 1: MAEVE CALZADA MD, TITUS J August 09, 2020 17:38
[2020-08-09 18:07] VITALS: BP 120/79
== END 2020-08-09 18:07 | disposition home or self-care (01) ==
LOC: EDUNIT# 17:19 → ER 17:20
DX: S09.90XA Unspecified injury of head, initial encounter (principal); G40.909 Epilepsy, unspecified, not intractable, without status epilepticus; E66.9 Obesity, unspecified; F32.9 Major depressive disorder, single episode, unspecified; F17.210 Nicotine dependence, cigarettes, uncomplicated; Z68.44 Body mass index [BMI] 60.0-69.9, adult; Z79.899 Other long term (current) drug therapy; W22.8XXA Striking against or struck by other objects, initial encounter
CPT/HCPCS: 99283

== ENCOUNTER 2020-08-10 00:01 | Emergency (ER) | payer SELFPAY ==
[~2020-08-10] VITALS: Ht 157.5 cm; Wt 161.9 kg
[2020-08-10 00:25] LABS: BILIRUBIN,URINE NEGATIVE (NEGATIVE); CLARITY,URINE CLOUDY; COLOR,URINE DARK YELLOW; GLUCOSE, URINE (UA) NEGATIVE (NEGATIVE); KETONES,URINE NEGATIVE (NEGATIVE); LEUKOCYTE ESTERASE ,URINE NEGATIVE (NEGATIVE); NITRITE,URINE NEGATIVE (NEGATIVE); PROTEIN,URINE NEGATIVE (NEGATIVE)
[2020-08-10 00:28] LABS: BACTERIA,URINE MODERATE /HPF; RBC,URINE 0-2 /HPF; SQUAMOUS EPITHELIAL CELL,UR >50 /HPF
[2020-08-10] MEDS ORDERED: NS IV 1000 ML 1,000 ML IV STA (00:32)
[2020-08-10] MEDS ORDERED: KETOROLAC 30 MG/ML VIAL IVP STA (00:32)
[2020-08-10 00:50] LABS: HEMATOCRIT 43 % (35-52); HEMOGLOBIN 14.3 G/DL (11.5-16.0); MEAN CORPUSCULAR HEMOGLOBIN 33 PG (25-34); MEAN CORPUSCULAR HGB CONC 33 G/DL (32-36); MEAN CORPUSCULAR VOLUME 101 FL (80-99); MEAN PLATELET VOLUME 10.1 FL (7.4-10.4); PLATELET COUNT 228 10^3/uL (130-400); WHITE BLOOD COUNT 9.2 10^3/uL (4.3-11.0)
[2020-08-10 00:51] LABS: BASOPHILS # (AUTO) 0.1 10^3/uL (0.0-0.1); BASOPHILS % (AUTO) 1 % (0-10); EOSINOPHILS # (AUTO) 0.3 10^3/uL (0.0-0.3); EOSINOPHILS % (AUTO) 3 % (0-10); LYMPHOCYTES # (AUTO) 2.1 X 10^3 (1.0-4.0); LYMPHOCYTES % (AUTO) 23 % (12-44); MONOCYTES # (AUTO) 0.9 X 10^3 (0.0-1.0); MONOCYTES % (AUTO) 9 % (0-12); NEUTROPHILS # (AUTO) 5.9 X 10^3 (1.8-7.8); NEUTROPHILS % (AUTO) 64 % (42-75)
--- NOTE | 2020-08-10 00:54 | ED General ---
General Chief Complaint: Head/Cervical Problems Stated Complaint: FELL HEAD INJURY/TROUBLE BREATHING Nursing Triage Note: pt states she fell ealier today and was diagnosed with a concussion, pt tonight had a seizure and stopped breathing per , ems was called and checked pt out with no abnormalities noted. Pt reports she is having a hard time breathing but states chest does not hurt, does admit to being slightly anxious, o2 sat 99%, also states she has had a h/a since she fell Nursing Sepsis Screen: No Definite Risk Source of Information: Patient, Old Records History of Present Illness Date Seen by Provider: August 10, 2020 Time Seen by Provider: 00:06 Initial Comments 30-year-old female presenting with complaints of increased seizure activity and headache. She has a seizure and fell while at work earlier in the day on 09 August. She had hit the side of her head and was having some pain there. She was seen in the emergency department and [place] but refused any testing. She reports being told to stay awake as long as possible tonight since she hit her head so she was staying up with her . She reports having a seizure just prior to coming to the emergency department tonight. She states that that lasted for approximately 5 minutes according to her . During that time she had an episode where he felt that she stopped breathing. She did not have any loss of bowel or bladder control. She did not bite her tongue. She is now having pain in her sternum and anterior chest as well as the left lateral chest wall. She feels like it is hard for her to catch her breath. She denies any change in her vision or having any nausea or vomiting. She continues to have a left-sided headache since the original seizure and fall while at work earlier in the day. She reports having increased seizure activity in the last several days. She has not been able to see her neurologist from and states she has called but they do not have any opening to see her sooner than October. Associated Systoms: Chest Pain (anterior sternum chest pain), Cough (smoker's cough); No Diaphoresis, No Fever/Chills; Headaches (left sided headache since hit head with seizure afternoon of August 09); No Loss of Appetite; Malaise; No Nausea/Vomiting, No Rash; Seizure, Shortness of Air; No Syncope; Weakness Allergies and Home Medications Allergies Coded Allergies: No Known Drug Allergies (Unverified , 12/22/17) Home Medications Lamotrigine 25 Mg Tablet, 25 MG PO DAILY, (Reported) Levetiracetam 500 Mg Tablet, 500 MG PO BID Prescribed by: VICENTA BLACKWELL on 06/28/20 1045 Nitrofurantoin Monohyd/M-Cryst 100 Mg Capsule, 1 TAB PO BID Prescribed by: JESSICA GOLD on 05/17/20 2227 Patient Home Medication List Home Medication List Reviewed: Yes Review of Systems Review of Systems Constitutional: No chills, No diaphoresis, No fever EENTM: No ear pain, No blurred vision, No vision loss, No epistaxis, No nose congestion Respiratory: see HPI Cardiovascular: see HPI Gastrointestinal: no symptoms reported Genitourinary: no symptoms reported Musculoskeletal: no symptoms reported Skin: no symptoms reported Psychiatric/Neurological: Anxiety (worried that she is going to stop breathing again or have more seizures and states she wants them to just stop), Headache (left parietal since seizure with head injury of hitting head against window sill earlier in the day on August 09); Denies Numbness; Seizure Hematologic/Lymphatic: Denies Easy Bleeding, Denies Easy Bruising Past Pstbcpn-Bbimko-Vjwcil Hx Past Med/Social Hx: Reviewed Nursing Past Med/Soc Hx Patient Social History Alcohol Use: Denies Use Smoking Status: Current Everyday Smoker Type Used: Cigarettes 2nd Hand Smoke Exposure: Yes Recent Infectious Disease Expo: No Recent Hopitalizations: No Immunizations Up To Date Tetanus Booster (TDap): Unknown Seasonal Allergies Seasonal Allergies: No Past Medical History Surgeries: Yes Gallbladder, Orthopedic, Tubal Ligation Respiratory: No Cardiac: No Neurological: Yes Headaches /Migraines, Seizure Disorder 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 Sexually Transmitted Disease: No HIV/AIDS: No Genitourinary: No Gastrointestinal: No Musculoskeletal: No Endocrine: No HEENT: No Cancer: No Psychosocial: Yes Anxiety, Depression Integumentary: No Blood Disorders: No Family Medical History Drug abuse 19 MOTHER, Age:46 FH: pulmonary embolism G8 BROTHER, Age:25, Onset:20's - 25 Hypertension 19 MOTHER, Age:46 Physical Exam Vital Signs Vital Signs - First Documented 08/10/20 00:19 Temp 36.0 Pulse 96 Resp 16 B/P (MAP) 129/67 (87) Pulse Ox 9 O2 Delivery Room Air Capillary Refill : Less Than 3 Seconds Height, Weight, BMI Height: 5'2.00" Weight: 310lbs. 10.0oz. 140.545397mq; 65.00 BMI Method:Stated General Appearance: Anxious, Obese Eyes: Bilateral Eye Normal Inspection, Bilateral Eye PERRL, Bilateral Eye EOMI HEENT: PERRL/EOMI, Pharynx Normal, Moist Mucous Membranes; No Photophobia; Other (Left TM obscured by cerumen, right TM clear without hemotympanum. No CSF otorrhea or rhinorrhea. No solano or raccoon sign) Neck: Full Range of Motion, Normal Inspection, Supple Respiratory: Lungs Clear, Normal Breath Sounds, No Accessory Muscle Use, No Respiratory Distress, Other (tender to palpation over sternum and left lateral ribs. 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; No Abnormal Gait; Other (anxious) Skin: Normal Color, Warm/Dry Progress/Results/Core Measures Suspected Sepsis Recent Fever Within 48 Hours: No Infection Criteria Present: None New/Unexplained Altered Menta: No Sepsis Screen: No Definite Risk SIRS Temperature: Pulse: 96 Respiratory Rate: 16 Laboratory Tests 08/10/20 00:45: White Blood Count 9.2 Blood Pressure 129 /67 Mean: 87 Laboratory Tests 08/10/20 00:45: Creatinine 0.72, Platelet Count 228, Total Bilirubin 0.2 Results/Orders Lab Results Laboratory Tests Test 08/10/20 00:10 08/10/20 00:45 Range/Units Urine Color DARK YELLOW Urine Clarity CLOUDY Urine pH 6.0 5-9 Urine Specific Lyndon 1.025 H 1.016-1.022 Urine Protein NEGATIVE NEGATIVE Urine Glucose (UA) NEGATIVE NEGATIVE Urine Ketones NEGATIVE NEGATIVE Urine Nitrite NEGATIVE NEGATIVE Urine Bilirubin NEGATIVE NEGATIVE Urine Urobilinogen 1.0 < = 1.0 MG/DL Urine Leukocyte Esterase NEGATIVE NEGATIVE Urine RBC (Auto) NEGATIVE NEGATIVE Urine RBC 0-2 /HPF Urine WBC 2-5 /HPF Urine Squamous Epithelial Cells >50 H /HPF Urine Crystals NONE /LPF Urine Bacteria MODERATE H /HPF Urine Casts NONE /LPF Urine Mucus LARGE H /LPF Urine Culture Indicated YES White Blood Count 9.2 4.3-11.0 10^3/uL Red Blood Count 4.28 L 4.35-5.85 10^6/uL Hemoglobin 14.3 11.5-16.0 G/DL Hematocrit 43 35-52 % Mean Corpuscular Volume 101 H 80-99 FL Mean Corpuscular Hemoglobin 33 25-34 PG Mean Corpuscular Hemoglobin Concent 33 32-36 G/DL Red Cell Distribution Width 12.2 10.0-14.5 % Platelet Count 228 130-400 10^3/uL Mean Platelet Volume 10.1 7.4-10.4 FL Immature Granulocyte % (Auto) 0 % Neutrophils (%) (Auto) 64 42-75 % Lymphocytes (%) (Auto) 23 12-44 % Monocytes (%) (Auto) 9 0-12 % Eosinophils (%) (Auto) 3 0-10 % Basophils (%) (Auto) 1 0-10 % Neutrophils # (Auto) 5.9 1.8-7.8 X 10^3 Lymphocytes # (Auto) 2.1 1.0-4.0 X 10^3 Monocytes # (Auto) 0.9 0.0-1.0 X 10^3 Eosinophils # (Auto) 0.3 0.0-0.3 10^3/uL Basophils # (Auto) 0.1 0.0-0.1 10^3/uL Immature Granulocyte # (Auto) 0.0 0.0-0.1 10^3/uL Percent Immature Platelet Fraction 1.7 0.0-7.6 % Sodium Level 134 L 135-145 MMOL/L Potassium Level 4.3 3.6-5.0 MMOL/L Chloride Level 104 98-107 MMOL/L Carbon Dioxide Level 23 21-32 MMOL/L Anion Gap 7 5-14 MMOL/L Blood Urea Nitrogen 13 7-18 MG/DL Creatinine 0.72 0.60-1.30 MG/DL Estimat Glomerular Filtration Rate > 60 BUN/Creatinine Ratio 18 Glucose Level 116 H 70-105 MG/DL Calcium Level 8.7 8.5-10.1 MG/DL Corrected Calcium 8.9 8.5-10.1 MG/DL Total Bilirubin 0.2 0.1-1.0 MG/DL Aspartate Amino Transf (AST/SGOT) 23 5-34 U/L Alanine Aminotransferase (ALT/SGPT) 19 0-55 U/L Alkaline Phosphatase 123 40-136 U/L Total Protein 6.6 6.4-8.2 GM/DL Albumin 3.7 3.2-4.5 GM/DL My Orders Orders - LES MCCALL MD Ua Culture If Indicated (08/10/20 00:07) Urine Bedside (08/10/20 00:07) Urine Culture (08/10/20 00:10) Cbc With Automated Diff (08/10/20:32) Comprehensive Metabolic Panel (08/10/20:32) Chest Pa/Lat (2 View) (08/10/20:) Ed Iv/Invasive Line Start (08/10/20:32) Ns Iv 1000 Ml (Sodium Chloride 0.9%) (08/10/20:32) Ketorolac Injection (Toradol Injection) (08/10/20:32) Seizure Precautions (08/10/20:32) Ct Head Wo (08/10/20:32) Vital Signs/I&O 08/10/20 08/10/20 00:19 01:48 Temp 36.0 Pulse 96 75 Resp 16 18 B/P (MAP) 129/67 (87) 155/88 Pulse Ox 9 99 O2 Delivery Room Air Room Air Capillary Refill : Less Than 3 Seconds Blood Pressure Mean: 87 Progress Note #1: Progress Note Although pt refused testing earlier on August 09 and said she would get this done as an outpatient she now has decided to have testing done. She was worried because her reported she had stopped breathing for a period of time during the seizure. However, she had no loss of bowel or bladder control. Will check urine along with bedside test. Labs to look at blood count and electrolytes with renal and hepatic function. CT head to evaluate for acute abnormality after head injury on August 09 and increased seizure activity over the last week. CXR to evaluate her ribs and lungs, although her breathing on exam is normal and normal breath sounds with Oxygen saturation of 99% on room air. Differential diagnosis includes concussion with head injury, breakthrough seizure, electrolyte imbalance, urinary tract infection, chest wall contusion, pseudoseizures Progress Note #2: Progress Note Negative Urine . UA does show elevated specific gravity so she might be a little dehydrated. Numerous epithelial cells so appears to be a contaminated s pecimen. Will give IVF for hydration, Toradol for headache and chest wall pain. Progress Note #3: Time: 01:[address] head does not show any acute process. CXR clear and does not show any acute process on my review of 2 view films. Labs show no acute significant abnormality on CBC or Chemistry. [employer] Adf Consultant pt that no sign of skull fracture or intracranial bleeding. Ok to sleep and make sure she gets plenty of rest. Better to stay on a regular sleep schedule than to be sleep deprived to help prevent breakthrough seizures. Check with clinic and see if Neurology can move up appt or if they want to adjust meds or check levels or do anything different until she is seen. Continue on regular medicines. No driving until cleared by neurology. Diagnostic Imaging Diagonstic Imaging: CT Plain Films/CT/US/NM/MRI: head Comments Impression: No acute abnormality. Read by radiologist Dr. Harpreet Lora MD at 0059 and faxed at [phone] Reviewed: Reviewed [place] Study, Reviewed by Me Diagonstic Imaging: Xray Plain Films/CT/US/NM/MRI: chest Comments On my review of 2 view CXR she has no acute infiltrate, pneumothorax or fractures. Reviewed: Reviewed by Me Departure Impression Primary Impression: Breakthrough seizure Additional Impressions: Closed head injury Qualified Codes: S09.90XA - Unspecified injury of head, initial encounter Contusion of chest wall with intact skin Disposition: 01 HOME, SELF-CARE Condition: Stable Departure-Patient Inst. Decision time for Depature: 01:38 Referrals: MAEVE CAZLADA MD (PCP/Family) Primary Care Physician Patient Instructions: Minor Head Injury, Adult ED, Seizures, Adult (DC), Driving Restrictions Add. Discharge Instructions: Stay well hydrated and make sure to get plenty of rest and stay on a regular schedule with your sleep. If you are sleep deprived or have an irregular schedule that can contribute to more seizures. Check back with your doctor and the Neurology clinic to see if they can see you any sooner or if they want to adjust any medicines or check levels of any of the seizure medicines. All discharge instructions reviewed with patient and/or family. Voiced understanding. Work/School Note: Work Release Form Date Seen in the Emergency Department: August 10, 2020 Return to Work: August 13, 2020 Restrictions: No Restrictions LES MCCALL MD August 10, 2020 00:54
[2020-08-10 01:10] LABS: ALANINE AMINOTRANSFERASE 19 U/L (0-55); ALBUMIN 3.7 GM/DL (3.2-4.5); ALKALINE PHOSPHATASE 123 U/L (40-136); BILIRUBIN,TOTAL 0.2 MG/DL (0.1-1.0); BUN/CREATININE RATIO 18; CALCIUM 8.7 MG/DL (8.5-10.1); CARBON DIOXIDE 23 MMOL/L (21-32); CHLORIDE 104 MMOL/L (98-107); CREATININE SERUM 0.72 MG/DL (0.60-1.30); GFR ESTIMATED > 60; GLUCOSE 116 MG/DL (70-105); POTASSIUM 4.3 MMOL/L (3.6-5.0); SODIUM 134 MMOL/L (135-145); TOTAL PROTEIN 6.6 GM/DL (6.4-8.2)
[2020-08-10 01:48] VITALS: BP 155/88
--- NOTE | 2020-08-10 06:25 | Diagnostic Imaging Report ---
PROCEDURE: CT head without contrast. TECHNIQUE: Multiple contiguous axial images were obtained through the brain without the use of intravenous contrast. Auto Exposure Controls were utilized during the CT exam to meet ALARA standards for radiation dose reduction. INDICATION: Seizure with left-sided head pain. CORRELATION is made with prior head CT from 06/28/2020. Ventricles and sulci are within normal limits. There is no midline shift. No acute intra-axial or extra-axial hemorrhage is detected. Cisterns are patent. Visualized paranasal sinuses are clear. IMPRESSION: No acute intracranial process is detected. Dictated by: Dictated on workstation # [id number]
--- NOTE | 2020-08-10 06:58 | Diagnostic Imaging Report ---
INDICATION: Chest pain and seizure. Time of exam: 1:02 AM Correlation is made with prior chest 06/28/2020. The heart size is normal. The pulmonary vascularity is unremarkable. The lungs are clear. No infiltrate, effusion or pneumothorax is detected. IMPRESSION: No acute cardiopulmonary process is detected. Dictated by: Dictated on workstation # [id number]
== END 2020-08-10 01:48 | disposition home or self-care (01) ==
LOC: EDUNIT# 00:01 → ER FS 00:06
DX: S20.212A Contusion of left front wall of thorax, initial encounter (principal); S09.90XA Unspecified injury of head, initial encounter; G40.909 Epilepsy, unspecified, not intractable, without status epilepticus; F32.9 Major depressive disorder, single episode, unspecified; E66.9 Obesity, unspecified; F17.210 Nicotine dependence, cigarettes, uncomplicated; Z68.44 Body mass index [BMI] 60.0-69.9, adult; Z79.899 Other long term (current) drug therapy; W19.XXXA Unspecified fall, initial encounter
CPT/HCPCS: 36415; 70450; 71046; 80053; 81000; 84703; 85025; 87088

== ENCOUNTER 2020-10-02 10:07 | Emergency (ER) | payer SELFPAY ==
[~2020-10-02] VITALS: Ht 162.5 cm; Wt 159.6 kg
[~2020-10-02 10:07] MED LIST changes: +ACHD5005 PO; -ARIP10TA17; +ARIP10TA55
[2020-10-02 10:19] VITALS: BP 151/86
[2020-10-02] MEDS ORDERED: KETOROLAC 60 MG/2 ML VIAL IM STA (10:23)
--- NOTE | 2020-10-02 10:23 | ED Head Injury ---
General Stated Complaint: SEIZURE; HEAD INJ History of Present Illness Date Seen by Provider: Oct 02, 2020 Time Seen by Provider: 10:19 Initial Comments 30-year-old female presents following a seizure. She reports that she had a seizure when she had a seizure she hit her head on the back of the bathtub. Patient has a known seizure history and has recurrent seizures. She reports she is taking all her medication as prescribed. She had no loss of bowel or bladder, no tongue biting. She reports her seizures started following a head injury. She has no fevers chills or other systemic complaints at this time. Allergies and Home Medications Allergies Coded Allergies: levetiracetam (Verified Allergy, Unknown, "goes psycho" , 08/18/20) Home Medications Hydrocodone/Acetaminophen 1 Each Tablet, 1 TAB PO Q6H PRN for PAIN-SEVERE (8-10) Prescribed by: LES MCCALL on 08/18/201910 Ibuprofen 800 Mg Tablet, 800 MG PO Q8H PRN for PAIN Prescribed by: LES MCCALL on 08/18/201909 Lamotrigine 25 Mg Tablet, 25 MG PO DAILY, (Reported) Levetiracetam 500 Mg Tablet, 500 MG PO BID Prescribed by: VICENTA BLACKWELL on 06/28/20 104 Nitrofurantoin Monohyd/M-Cryst 100 Mg Capsule, 1 TAB PO BID Prescribed by: JESSICA GOLD on 05/17/202226 Patient Home Medication List Home Medication List Reviewed: Yes Review of Systems Review of Systems Constitutional: see HPI; No chills, No fever Eyes: No Symptoms Reported Ears, Nose, Mouth, Throat: no symptoms reported Respiratory: no symptoms reported Cardiovascular: no symptoms reported Gastrointestinal: no symptoms reported Genitourinary: no symptoms reported Musculoskeletal: no symptoms reported Skin: no symptoms reported Psychiatric/Neurological: See HPI Past Zayhxfb-Zgcias-Vjrsan Hx Immunizations Up To Date Tetanus Booster (TDap): Unknown Seasonal Allergies Seasonal Allergies: No Past Medical History Surgeries: Yes Gallbladder, Orthopedic, Tubal Ligation Respiratory: No Cardiac: No Neurological: Yes Headaches /Migraines, Seizure Disorder 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 10.0oz. 140.193824gc; 65.00 BMI Method:Stated General Appearance: no apparent distress HEENT: normal ENT inspection, TMs normal Neck: full range of motion, supple Cardiovascular: normal peripheral pulses, regular rate, rhythm Respiratory: lungs clear, normal breath sounds Gastrointestinal: non tender, soft Extremities: non-tender, normal inspection Psychiatric: alert, oriented x 3, depressed affect Crainal Nerves: normal hearing, normal speech, PERRL Coordination/Gait: normal finger to nose, normal gait Motor/Sensory: no motor deficit, no sensory deficit Skin: normal color, warm/dry Progress/Results/Core Measures Results/Orders My Orders Orders - DON MCLAUGHLIN DO Ct Head Wo (10/02/20 10:23) Ketorolac Injection (Toradol Injection) (10/02/20 10:23) Progress Progress Note : Progress Note Pt walked out of room, states that "her wants her to leave" pt left prior to any testing, would not elaborate on why she is leaving Departure Impression Primary Impression: Injury of head and neck Qualified Codes: S09.90XA - Unspecified injury of head, initial encounter; S19.9XXA - Unspecified injury of neck, initial encounter Additional Impression: Breakthrough seizure Disposition: 07 AGAINST MEDICAL ADVICE Condition: Stable Departure-Patient Inst. Referrals: MAEVE CALZADA MD (PCP/Family) Primary Care Physician Add. Discharge Instructions: Return the ER as needed DON MCLAUGHLIN DO Oct 02, 2020 10:23
== END 2020-10-02 10:21 | disposition left against medical advice (07) ==
LOC: EDUNIT# 10:07 → ER FS 10:08
DX: S09.90XA Unspecified injury of head, initial encounter (principal); S19.9XXA Unspecified injury of neck, initial encounter; G40.909 Epilepsy, unspecified, not intractable, without status epilepticus; W22.8XXA Striking against or struck by other objects, initial encounter
CPT/HCPCS: 99282

== ENCOUNTER 2020-10-31 20:46 | Emergency (ER) | payer SELFPAY ==
[~2020-10-31] VITALS: Ht 157.4 cm; Wt 160.1 kg
[~2020-10-31 20:46] MED LIST changes: -SULF1TAB35 PO; +SULF1TAB38 PO
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
[2020-10-31 20:52] VITALS: BP 120/70
--- NOTE | 2020-10-31 21:26 | Diagnostic Imaging Report ---
INDICATION: Headache and seizure. TECHNIQUE: Multiple contiguous axial images were obtained through the brain without the use of intravenous contrast. Auto Exposure Controls were utilized during the CT exam to meet ALARA standards for radiation dose reduction. COMPARISON: 08/18/2020. FINDINGS: There is no extra-axial fluid collection. No intracranial hemorrhage. No intracranial mass or mass effect. No midline shift. The ventricles are normal in size and position. There is no focal parenchymal abnormality in the brain except for a low-density area in the right basal ganglia which is probably a prominent Virchow-Isaias space and is unchanged from 08/18/2020. Calvarial windows are normal. IMPRESSION: Negative noncontrast brain CT. Dictated by: Dictated on workstation # [id number]
--- OUTSIDE RECORDS SUMMARY | 2020-11-03 03:32 | XMS REPORT | Clinical Summary ---
Author Author [facility] Organization [facility] Address Unknown Phone Unavailable Care Team Providers Care Model Artists' Name Role Phone Unknown, Unknown Md PCP Unavailable Source Comments Some departments are not documenting in the electronic medical record. If you d o not see the information that you expected, contact Release of Information in [facility] [employer] Information Management department at [phone] for further assistan ce in locating additional records.[facility] Allergies No Known Active Allergies Medications End Date Status Medication Sig Dispensed Refills Start Date Active lamoTRIgine (LAMICTAL) Take 200 mg 0 200 mg tablet by mouth twice daily. Active topiramate 50 mg CSpX Take by 0 mouth twice daily. Active clonazePAM (KLONOPIN) 0.5 Take 0.5 mg 0 mg tablet by mouth three times daily. Active ARIPiprazole (ABILIFY) 10 Take 10 mg by 0 mg tablet mouth daily. Active carBAMazepine XR Take 200 mg 0 (TEGRETOL XR) 200 mg by mouth tablet twice daily. Active duloxetine DR (CYMBALTA) Take 20 mg by 0 20 mg capsule mouth daily. Active Problems No known active problems Family History Medical History Relation Name Comments Blood Clots Brother Hypertension Father Blood Clots Mother Muscular Dystrophy Sister Relation Name Status Comments Brother Alive Father Alive Mother Alive Sister Alive Sister Alive Sister Alive Social History Date Tobacco Use Types Packs/Day Years Used Current Every Day Smoker Cigarettes 1 15 Smokeless Tobacco: Never Used Drinks/Week oz/Week Comments Alcohol Use Never Alcohol Habits Answer Date Recorded How often do you have a drink containing alcohol? Never 04/02/2020 How many drinks containing alcohol do you have on No t asked a typical day when you are drinking? How often do you have six or more drinks on one Not asked occasion? Sex Assigned at Date Recorded Not on file Last Filed Vital Signs Reading Time Taken Comments Vital Sign 132/78 07/01/2020 9:39 AM CDT Blood Pressure 85 07/01/2020 9:39 AM CDT Pulse 36.8 C (98.3 F) 04/01/2020 8:36 PM COMMUNITY ORGANIZER Temperature - - Respiratory Rate 100% 04/01/2020 8:36 PM COMMUNITY ORGANIZER Oxygen Saturation - - Inhaled Oxygen Concentration 136.1 kg (300 lb) 07/01/2020 9:39 AM CDT Weight 157.5 cm (5' 2") 07/01/2020 9:39 AM CDT Height 54.87 07/01/2020 9:39 AM CDT Body Mass Index Plan of Treatment Health Maintenance Due Date Last Done Comments HIV SCREENING 2006 DTAP/TDAP VACCINES (1 - 2009 Tdap) HEPATITIS C SCREENING 2009 PHYSICAL (COMPREHENSIVE) 2009 EXAM CERVICAL CANCER SCREENING 02/23/2012 INFLUENZA VACCINE 12/26/2020 Results Not on filefrom Last 3 Months Advance 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
== END 2020-10-31 21:32 | disposition home or self-care (01) ==
LOC: EDUNIT# 20:46 → ER FS 20:48
DX: S00.03XA Contusion of scalp, initial encounter (principal); G40.909 Epilepsy, unspecified, not intractable, without status epilepticus; E66.9 Obesity, unspecified; Z68.44 Body mass index [BMI] 60.0-69.9, adult; Z79.899 Other long term (current) drug therapy; W22.8XXA Striking against or struck by other objects, initial encounter
CPT/HCPCS: 70450; 99283

== ENCOUNTER 2020-12-30 12:42 | Emergency (ER) | payer SELFPAY ==
[~2020-12-30] VITALS: Ht 162.6 cm; Wt 158.7 kg
--- OUTSIDE RECORDS SUMMARY | 2020-12-30 12:46 | XMS REPORT | Clinical Summary ---
Author Author [facility] Organization [facility] Address Unknown Phone Unavailable Care Team Providers Care Associate Director Of Development Name Role Phone Unknown, Unknown Md PCP Unavailable Source Comments Some departments are not documenting in the electronic medical record. If you d o not see the information that you expected, contact Release of Information in [facility] [employer] Information Management department at [phone] for further assistan ce in locating additional records.[facility] Allergies No Known Active Allergies Medications [...] Cigarettes 1 15 Smokeless Tobacco: Never Used Comments Alcohol Use Standard Drinks/Week Never 0 (1 standard drink = 0.6 o z pure alcohol) Alcohol Habits Answer Date Recorded How often do you have a drink containing alcohol? Never 04/02/2020 How many drinks containing alcohol do you have on No t asked a typical day when you are drinking? How often do you have six or more drinks on one Not asked occasion? 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
[2020-12-30] MEDS ORDERED: NS IV 1000 ML 1,000 ML IV ONE (13:00)
[2020-12-30 13:09] LABS: BILIRUBIN,URINE NEGATIVE (NEGATIVE); CLARITY,URINE CLOUDY; COLOR,URINE BROWN; GLUCOSE, URINE (UA) NEGATIVE (NEGATIVE); KETONES,URINE NEGATIVE (NEGATIVE); LEUKOCYTE ESTERASE ,URINE 1+ (NEGATIVE); NITRITE,URINE NEGATIVE (NEGATIVE); PROTEIN,URINE TRACE (NEGATIVE)
[2020-12-30 13:17] LABS: BASOPHILS % (AUTO) 1 % (0-10); EOSINOPHILS % (AUTO) 4 % (0-10); HEMATOCRIT 43 % (35-52); HEMOGLOBIN 14.5 g/dL (11.5-16.0); LYMPHOCYTES % (AUTO) 27 % (12-44); MEAN CORPUSCULAR HEMOGLOBIN 33 pg (25-34); MEAN CORPUSCULAR HGB CONC 34 g/dL (32-36); MEAN CORPUSCULAR VOLUME 96 fL (80-99); MEAN PLATELET VOLUME 9.4 fL (9.0-12.2); MONOCYTES % (AUTO) 7 % (0-12); NEUTROPHILS # (AUTO) 4.9 X 10^3 (1.8-7.8); NEUTROPHILS % (AUTO) 61 % (42-75); PLATELET COUNT 289 10^3/uL (130-400)
[2020-12-30 13:18] LABS: BASOPHILS # (AUTO) 0.1 10^3/uL (0.0-0.1); EOSINOPHILS # (AUTO) 0.3 10^3/uL (0.0-0.3); LYMPHOCYTES # (AUTO) 2.1 X 10^3 (1.0-4.0); MONOCYTES # (AUTO) 0.6 X 10^3 (0.0-1.0)
[2020-12-30 13:26] LABS: BACTERIA,URINE LARGE /HPF
[2020-12-30 13:27] LABS: SQUAMOUS EPITHELIAL CELL,UR >50 /HPF
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
[2020-12-30 13:29] LABS: ALBUMIN 3.9 GM/DL (3.2-4.5); BILIRUBIN,TOTAL 0.2 MG/DL (0.1-1.0); CALCIUM 8.4 MG/DL (8.5-10.1); CREATININE SERUM 0.69 MG/DL (0.60-1.30); POTASSIUM 4.1 MMOL/L (3.6-5.0); TOTAL PROTEIN 6.4 GM/DL (6.4-8.2)
[2020-12-30] MEDS ORDERED: LORazepam 0.5 MG (ATIVAN) TABLET PO STA (13:42)
[2020-12-30 13:53] VITALS: BP 149/81
== END 2020-12-30 13:53 | disposition home or self-care (01) ==
LOC: EDUNIT# 12:42 → ER FS 12:43
DX: G40.909 Epilepsy, unspecified, not intractable, without status epilepticus (principal); F41.9 Anxiety disorder, unspecified; F32.9 Major depressive disorder, single episode, unspecified; F17.210 Nicotine dependence, cigarettes, uncomplicated; Z79.899 Other long term (current) drug therapy
CPT/HCPCS: 36415; 80053; 81000; 84703; 85025; 86141; 87088

== ENCOUNTER 2021-01-04 11:37 | Emergency (ER) | payer SELFPAY ==
[~2021-01-04] VITALS: Ht 162 cm; Wt 158.0 kg
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
[2021-01-04] MEDS ORDERED: OLANZapine 5 MG ODT (ZyPREXA ZYDIS) PO ONE (12:00)
[2021-01-04 12:01] LABS: HEMATOCRIT 45 % (35-52); MEAN CORPUSCULAR HEMOGLOBIN 32 pg (25-34); MEAN CORPUSCULAR HGB CONC 34 g/dL (32-36); MEAN CORPUSCULAR VOLUME 953 fL (80-99); WHITE BLOOD COUNT 9.5 10^3/uL (4.3-11.0)
[2021-01-04 12:02] LABS: BASOPHILS # (AUTO) 0.1 10^3/uL (0.0-0.1); BASOPHILS % (AUTO) 1 % (0-10); EOSINOPHILS # (AUTO) 0.4 10^3/uL (0.0-0.3); EOSINOPHILS % (AUTO) 4 % (0-10); LYMPHOCYTES # (AUTO) 2.8 X 10^3 (1.0-4.0); LYMPHOCYTES % (AUTO) 30 % (12-44); MEAN PLATELET VOLUME 9.2 fL (9.0-12.2); MONOCYTES # (AUTO) 0.8 X 10^3 (0.0-1.0); MONOCYTES % (AUTO) 8 % (0-12); NEUTROPHILS # (AUTO) 5.4 X 10^3 (1.8-7.8); NEUTROPHILS % (AUTO) 58 % (42-75); PLATELET COUNT 310 10^3/uL (130-400)
[2021-01-04 12:20] LABS: BILIRUBIN,TOTAL 0.2 MG/DL (0.1-1.0); CALCIUM 8.7 MG/DL (8.5-10.1); CREATININE SERUM 0.68 MG/DL (0.60-1.30); POTASSIUM 4.2 MMOL/L (3.6-5.0); TOTAL PROTEIN 6.8 GM/DL (6.4-8.2)
[2021-01-04 12:46] LABS: BACTERIA,URINE MODERATE /HPF; BILIRUBIN,URINE NEGATIVE (NEGATIVE); CLARITY,URINE CLOUDY; COLOR,URINE YELLOW; GLUCOSE, URINE (UA) NEGATIVE (NEGATIVE); KETONES,URINE TRACE (NEGATIVE); LEUKOCYTE ESTERASE ,URINE TRACE (NEGATIVE); NITRITE,URINE NEGATIVE (NEGATIVE); PROTEIN,URINE NEGATIVE (NEGATIVE); SQUAMOUS EPITHELIAL CELL,UR >50 /HPF
[2021-01-04 12:50] LABS: AMPHETAMINE SCREEN, URINE NEGATIVE (NEGATIVE); BARBITURATE SCREEN URINE NEGATIVE (NEGATIVE); BENZODIAZEPINES SCREEN URINE POSITIVE (NEGATIVE); CANNABINOID SCREEN, URINE NEGATIVE (NEGATIVE); COCAINE SCREEN URINE NEGATIVE (NEGATIVE); METHADONE STAT NEGATIVE (NEGATIVE); METHAMPHETAMINE SCREEN URINE S NEGATIVE (NEGATIVE); OPIATE SCREEN URINE NEGATIVE (NEGATIVE); OXYCODONE STAT NEGATIVE (NEGATIVE); PROPOXYPHENE STAT NEGATIVE (NEGATIVE); TRICYCLIC ANTIDEPRESSANTS SCRE NEGATIVE (NEGATIVE)
[2021-01-04 13:04] VITALS: BP 122/62
== END 2021-01-04 13:06 | disposition home or self-care (01) ==
LOC: EDUNIT# 11:37 → ER FS 11:39
DX: G40.909 Epilepsy, unspecified, not intractable, without status epilepticus (principal); F43.20 Adjustment disorder, unspecified; F41.9 Anxiety disorder, unspecified; F32.9 Major depressive disorder, single episode, unspecified; Z79.899 Other long term (current) drug therapy
CPT/HCPCS: 36415; 80053; 80306; 81000; 85025

== ENCOUNTER 2021-01-12 22:38 | Emergency (ER) | payer SELFPAY ==
[~2021-01-12] VITALS: Ht 162 cm; Wt 154.2 kg
[2021-01-12] MEDS ORDERED: ONDANSETRON 4 MG (ZOFRAN) ORAL DISSOLVE TAB PO STA (22:49)
[2021-01-12] MEDS ORDERED: diphenhydrAMINE 50 MG/ML INJ (BENADRYL) IM STA (22:49)
[2021-01-12] MEDS ORDERED: KETOROLAC 60 MG/2 ML VIAL IM STA (22:49)
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
[2021-01-12] MEDS ORDERED: IBUP-1780 PO (23:12)
--- NOTE | 2021-01-12 23:26 | Diagnostic Imaging Report ---
INDICATION: Seizure with trauma to the head TECHNIQUE: Routine non contrast-enhanced axial images were obtained from the skull base to the vertex. Auto Exposure Controls were utilized during the CT exam to meet ALARA standards for radiation dose reduction COMPARISON: 10/31/2020 FINDINGS: The ventricles and cortical sulci are normal in size and contour. Focal hypodensity within the right basal ganglia is again identified and is likely on the basis of prominent Virchow-Isaias space. There is no midline shift or mass-effect. No acute intra-axial hemorrhage is seen. There are no abnormal areas of increased or decreased density to suggest acute hemorrhage or edema. No extra-axial masses or collections are present. The bony calvarium is intact. The visualized paranasal sinuses are unremarkable. The mastoid air cells are clear. IMPRESSION: 1. No acute intracranial abnormality. No CT evidence of mass, acute infarct or intracranial hemorrhage. Dictated by: Dictated on workstation # [id number]
[2021-01-12 23:35] VITALS: BP 141/74
== END 2021-01-12 23:34 | disposition home or self-care (01) ==
LOC: EDUNIT# 22:38 → ER FS 22:39
DX: S00.03XA Contusion of scalp, initial encounter (principal); G40.909 Epilepsy, unspecified, not intractable, without status epilepticus; E66.9 Obesity, unspecified; F41.9 Anxiety disorder, unspecified; F32.9 Major depressive disorder, single episode, unspecified; R40.2410 Glasgow coma scale score 13-15, unspecified time; Z68.44 Body mass index [BMI] 60.0-69.9, adult; Z79.899 Other long term (current) drug therapy; W22.8XXA Striking against or struck by other objects, initial encounter
CPT/HCPCS: 70450

== ENCOUNTER 2021-01-17 21:55 | Emergency (ER) | payer SELFPAY ==
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
[2021-01-17 23:31] VITALS: BP 155/92
== END 2021-01-17 23:31 | disposition home or self-care (01) ==
LOC: EDUNIT# 21:55 → ER 21:58
DX: F44.5 Conversion disorder with seizures or convulsions (principal); F41.9 Anxiety disorder, unspecified; F32.9 Major depressive disorder, single episode, unspecified; G43.909 Migraine, unspecified, not intractable, without status migrainosus; Z88.8 Allergy status to other drugs, medicaments and biological substances; Z79.899 Other long term (current) drug therapy
CPT/HCPCS: 82947; 84703

== ENCOUNTER 2021-01-27 19:25 | Emergency (ER) | payer SELFPAY ==
[~2021-01-27] VITALS: Ht 157 cm; Wt 167.0 kg
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
[2021-01-27 20:43] VITALS: BP 137/79
== END 2021-01-27 20:43 | disposition home or self-care (01) ==
LOC: EDUNIT# 19:25 → ER FS 19:26
DX: S06.9X1A Unspecified intracranial injury with loss of consciousness of 30 minutes or less, initial encounter (principal); S00.03XA Contusion of scalp, initial encounter; G40.909 Epilepsy, unspecified, not intractable, without status epilepticus; F41.9 Anxiety disorder, unspecified; F32.9 Major depressive disorder, single episode, unspecified; E66.9 Obesity, unspecified; F17.210 Nicotine dependence, cigarettes, uncomplicated; Z68.44 Body mass index [BMI] 60.0-69.9, adult; W22.8XXA Striking against or struck by other objects, initial encounter
CPT/HCPCS: 99281

== ENCOUNTER 2021-02-04 10:57 | Emergency (ER) | payer SELFPAY ==
[~2021-02-04] VITALS: Ht 157 cm; Wt 166.0 kg
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
--- NOTE | 2021-02-04 11:39 | Diagnostic Imaging Report ---
PROCEDURE: CT head without contrast. TECHNIQUE: Multiple contiguous axial images were obtained through the brain without the use of intravenous contrast. Auto Exposure Controls were utilized during the CT exam to meet ALARA standards for radiation dose reduction. INDICATION: 30-year-old female presents with headache postseizure one day prior to study. Comparisons: 01/12/2021 FINDINGS: The midline structures are not displaced. Lateral, 3rd and 4th ventricles are normal in size, shape and anatomic position. There is no mass, mass effect, hydrocephalus or hemorrhage. Torre-white differentiation is normal. There is no sulcal effacement. Incidental small Virchow-Isaias space is seen in the anterior aspect of the right lentiform nucleus. There is no sulcal effacement. There are no abnormal extra-axial fluid collections or hemorrhage. Basilar cisterns appear normal. Sinuses orbits and mastoid cells are also grossly unremarkable. Bone no-show no calvarial changes. IMPRESSION: Essentially unremarkable nonenhanced CT head with no adverse interval change since the prior CT of 01/12/2021. Dictated by: Dictated on workstation # [id number]
[2021-02-04] MEDS ORDERED: IBUPROFEN 600 MG (MOTRIN) TAB PO ONE (11:45)
[2021-02-04 11:47] VITALS: BP 156/83
== END 2021-02-04 11:49 | disposition home or self-care (01) ==
LOC: EDUNIT# 10:57 → ER FS 10:59
DX: S00.03XA Contusion of scalp, initial encounter (principal); G40.909 Epilepsy, unspecified, not intractable, without status epilepticus; F32.9 Major depressive disorder, single episode, unspecified; F41.9 Anxiety disorder, unspecified; R40.2410 Glasgow coma scale score 13-15, unspecified time; F17.210 Nicotine dependence, cigarettes, uncomplicated; Z79.899 Other long term (current) drug therapy; W22.8XXA Striking against or struck by other objects, initial encounter
CPT/HCPCS: 70450

== ENCOUNTER 2021-02-11 10:52 | Emergency (ER) | payer SELFPAY ==
[~2021-02-11] VITALS: Ht 157.4 cm; Wt 168.0 kg
[2021-02-11] MEDS ORDERED: LIDOCAINE 1% INJ 20 ML 20 ML VIAL INJ STA (11:09)
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
[2021-02-11 11:50] VITALS: BP 160/99
== END 2021-02-11 11:50 | disposition home or self-care (01) ==
LOC: EDUNIT# 10:52 → ER FS 10:54
DX: S21.111A Laceration without foreign body of right front wall of thorax without penetration into thoracic cavity, initial encounter (principal); G40.909 Epilepsy, unspecified, not intractable, without status epilepticus; F41.9 Anxiety disorder, unspecified; F32.9 Major depressive disorder, single episode, unspecified; F17.210 Nicotine dependence, cigarettes, uncomplicated; Z79.899 Other long term (current) drug therapy; W26.8XXA Contact with other sharp object(s), not elsewhere classified, initial encounter

== ENCOUNTER 2021-04-05 14:07 | Emergency (ER) | payer OTHER ==
[~2021-04-05] VITALS: Ht 157.5 cm; Wt 71.6 kg
--- OUTSIDE RECORDS SUMMARY | 2021-04-05 14:10 | XMS REPORT | Clinical Summary ---
Author Author [facility] Organization [facility] Address Unknown Phone Unavailable Care Team Providers Care Manager Drive Name Role Phone Unknown, Unknown Md PCP Unavailable Source Comments Some departments are not documenting in the electronic medical record. 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
--- NOTE | 2021-04-05 14:57 | ED General ---
General Chief Complaint: Neurological Problems Stated Complaint: SEIZURE; CHEST PAIN; LOC Nursing Triage Note: Patient reports she has had left sided stabbing chest pain for 2-3 days, also states she has been having seizures for the last several days while incarcerated at [facility]. Source of Information: Patient Exam Limitations: No Limitations History of Present Illness Date Seen by Provider: Apr 05, 2021 Time Seen by Provider: 14:10 Initial Comments Patient is a 31-year-old female who presents with left-sided chest and shoulder pain. Patient is currently incarcerated has multiple pseudoseizures daily. She states her chest/shoulder pain is worse following her pseudoseizures. Pseudoseizures are brief last less than a minute. Chest and shoulder pain are described as dull and worse with palpation and arm movement. Denies headache, neck pain, abdominal pain. No nausea vomiting, leg pain or swelling. Timing/Duration: 12-24 Hours Severity: Mild Modifying Factors: improves with Other Associated Systoms: Other Allergies and Home Medications Allergies Coded Allergies: levetiracetam (Verified Allergy, Unknown, "goes psycho" , 08/18/20) Patient Home Medication List Home Medication List Reviewed: Yes Aripiprazole (Aripiprazole) 10 Mg Tablet, (Reported) Entered as Reported by: LETA NUNEZ on 05/17/202118 Duloxetine HCl (Duloxetine HCl) 30 Mg Capsule.dr (Reported) Entered as Reported by: LETA NUNEZ on 05/17/202118 Hydrocodone/Acetaminophen (Hydrocodone-Acetamin 5-325 mg) 1 Each Tablet, 1 TAB PO Q6H PRN for PAIN-SEVERE (8-10) Prescribed by: LES MCCALL on 08/18/201910 Ibuprofen (Ibuprofen) 800 Mg Tablet, 800 MG PO Q8H PRN for PAIN Prescribed by: LES MCCALL on 01/12/21 231 Lamotrigine (Lamictal) 25 Mg Tablet, 25 MG PO DAILY, (Reported) Entered as Reported by: NATALIYA BOO on 07/31/18 0757 Levetiracetam (Keppra) 500 Mg Tablet, 500 MG PO BID Prescribed by: VICENTA BLACKWELL on 06/28/20 1045 Topiramate (Topiramate) 25 Mg Tablet, (Reported) Entered as Reported by: LETA NUNEZ on 05/17/202116 [clonazepam] , (Reported) Entered as Reported by: LETA NUNEZ on 05/17/202118 Review of Systems Review of Systems Constitutional: see HPI EENTM: see HPI Respiratory: see HPI Cardiovascular: see HPI Gastrointestinal: see HPI Genitourinary: see HPI Musculoskeletal: see HPI Skin: see HPI Psychiatric/Neurological: See HPI Hematologic/Lymphatic: See HPI Immunological/Allergic: see HPI All Other Systems Reviewed Negative Unless Noted: Yes Past Pblufcs-Etijec-Qfhreq Hx Patient Social History Tobacco Use?: Yes Substance use?: No Alcohol Use?: No Pt feels they are or have been: No Immunizations Up To Date Tetanus Booster (TDap): Unknown First/Initial COVID19 Vaccinat: MAR 2020 Second COVID19 Vaccination Laurent: MAR 2020 Third COVID19 Vaccination Date: N/A 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[employer] Seasonal Allergies Seasonal Allergies: No Past Medical History Surgery/Hospitalization HX: pseudo-seizures Surgeries: Yes Gallbladder, Orthopedic, Tubal Ligation Respiratory: No Cardiac: No Neurological: Yes Headaches /Migraines, Seizure Disorder 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 10.0oz. 140.710273ow; 28.00 BMI Method:Stated General Appearance: No Apparent Distress, WD/WN, Anxious Eyes: Bilateral Eye Normal Inspection, Bilateral Eye PERRL, Bilateral Eye EOMI HEENT: PERRL/EOMI, Normal ENT Inspection, Pharynx Normal Neck: Non Tender Respiratory: Chest Non Tender, Lungs Clear Cardiovascular: Regular Rate, Rhythm Gastrointestinal: Non Tender, Soft Back: Normal Inspection, No CVA Tenderness Extremity: Normal Capillary Refill, Normal Inspection Neurologic/Psychiatric: Alert, Oriented x3, No Motor/Sensory Deficits, neurosurgeon II- XII Norm as Tested Focused Exam Sepsis Stage: Ruled Out Procedures/Interventions Suture Size: 4-0 Progress/Results/Core Measures Suspected Sepsis SIRS Temperature: Pulse: 108 Respiratory Rate: 14 Blood Pressure / Mean: Results/Orders My Orders Orders - IFTIKHAR ESCUDERO DO Troponin I Fs (04/05/21 14:47) Ibuprofen Tablet (Motrin Tablet) (04/05/21 15:00) Vital Signs/I&O 04/05/21 14:20 Temp 36.4 Pulse 108 Resp 14 B/P (MAP) Pulse Ox 98 O2 Delivery Room Air Capillary Refill : Less Than 3 Seconds Departure Communication (Admissions) EKG: Normal sinus rhythm, no acute ST segment elevations, nonspecific T wave changes. Atypical, ongoing greater than 24 hours, reproducible on exam no acute ST segment changes on EKG. Troponin negative. Recommendations are supportive care with [facility] follow-up Impression Primary Impression: Chest wall pain Disposition: HOME, SELF-CARE Condition: Stable Departure-Patient Inst. Decision time for Depature: 14:57 Referrals: MAEVE CALZADA MD (PCP) Primary Care Physician Patient Instructions: Chest Pain (DC) Add. Discharge Instructions: You were evaluated the emergency department for chest pain. EKG and lab were obtained and are reassuring. The exact cause of your pain is not being determined but is consistent with musculoskeletal strain. Please take ibuprofen [id number] for chest wall strain and follow-up with [facility] upon return for treatment and management of other medical problems. All discharge instructions reviewed with patient and/or family. Voiced understan ding. IFTIKHAR ESCUDERO DO Apr 05, 2021 14:56
[2021-04-05] MEDS ORDERED: IBUPROFEN 600 MG (MOTRIN) TAB PO ONE (15:00)
== END 2021-04-05 15:15 | disposition home or self-care (01) ==
LOC: EDUNIT# 14:07 → ER FS 14:08
DX: R07.89 Other chest pain (principal); G40.909 Epilepsy, unspecified, not intractable, without status epilepticus; F41.9 Anxiety disorder, unspecified; F32.9 Major depressive disorder, single episode, unspecified; Z72.0 Tobacco use; Z79.899 Other long term (current) drug therapy
CPT/HCPCS: 36415; 84484; 93005

== ENCOUNTER 2021-05-15 19:09 | Emergency (ER) | payer OTHER ==
[~2021-05-15] VITALS: Ht 162 cm; Wt 144.0 kg
[2021-05-15 19:15] VITALS: BP 138/79
[2021-05-15] MEDS ORDERED: KETOROLAC 60 MG/2 ML VIAL IM STA (19:26)
--- NOTE | 2021-05-15 19:31 | ED General ---
General Chief Complaint: Neurological Problems Stated Complaint: SEIZURE,FELL,HIT HEAD Source of Information: Patient, Other ([facility] Officer) History of Present Illness Date Seen by Provider: May 15, 2021 Time Seen by Provider: 19:11 Initial Comments 31-year-old female presenting with officer from [facility]. She is an inmate there and had a seizure. 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 She had been standing at the sink tonight and had a seizure where she fell and hit the back of her head. She had not lost control of her bowels or bladder. She reported a broken tooth when she stopped seizing for the staff. She has a headache with tenderness to the back of her head. She was fe eling tired from the seizure. She denied any other injuries. She has been taking [facility]. She denies having a regular dentist. She does not have any bleeding or bite quintanilla to her tongue or mucosa in her mouth. Location Injury Occurred: [facility] Associated Systoms: No Chest Pain, No Cough, No Diaphoresis, No Fever/Chills; Headaches; No Loss of Appetite, No Malaise, No Nausea/Vomiting, No Rash; Seizure; No Shortness of Air, No Syncope, No Weakness Allergies and Home Medications Allergies Coded Allergies: levetiracetam (Verified Allergy, Unknown, "goes psycho" , 08/18/20) Patient Home Medication List Home Medication List Reviewed: Yes Aripiprazole (Aripiprazole) 10 Mg Tablet, (Reported) Entered as Reported by: LETA NUNEZ on 05/17/202118 Duloxetine HCl (Duloxetine HCl) 30 Mg Capsule.dr (Reported) Entered as Reported by: LETA NUNEZ on 05/17/202118 Hydrocodone/Acetaminophen (Hydrocodone-Acetamin 5-325 mg) 1 Each Tablet, 1 TAB PO Q6H PRN for PAIN-SEVERE (8-10) Prescribed by: LES MCCALL on 08/18/201910 Ibuprofen (Ibuprofen) 800 Mg Tablet, 800 MG PO Q8H PRN for PAIN Prescribed by: LES MCCALL on 01/12/21 231 Lamotrigine (Lamictal) 25 Mg Tablet, 25 MG PO DAILY, (Reported) Entered as Reported by: NATALIYA BOO on 07/31/18 0757 Levetiracetam (Keppra) 500 Mg Tablet, 500 MG PO BID Prescribed by: VICENTA BLACKWELL on 06/28/20 1045 Topiramate (Topiramate) 25 Mg Tablet, (Reported) Entered as Reported by: LETA NUNEZ on 05/17/202116 [clonazepam] , (Reported) Entered as Reported by: LETA NUNEZ on 05/17/202118 Review of Systems Review of Systems Constitutional: No chills, No fever EENTM: see HPI; No ear discharge, No hearing loss, No ear pain, No blurred vision, No double vision, No epistaxis, No nose congestion Respiratory: no symptoms reported Cardiovascular: no symptoms reported Gastrointestinal: no symptoms reported Genitourinary: no symptoms reported Musculoskeletal: no symptoms reported Skin: No rash Psychiatric/Neurological: Anxiety, Headache (back of head where she had reportedly hit it on floor) Past Euufbhv-Jhzevg-Tiibid Hx Patient Social History Tobacco Use?: No Use of E-Cig and/or Vaping dev: No Substance use?: No Alcohol Use?: No Pt feels they are or have been: No Immunizations Up To Date Tetanus Booster (TDap): Unknown Influenza Vaccine Up-to-Date: No; Not Current First/Initial COVID19 Vaccinat: MAR 2020 Second COVID19 Vaccination Laurent: MAR 2020 Third COVID19 Vaccination Date: N/A Seasonal Allergies Seasonal Allergies: No Past Medical History Surgery/Hospitalization HX: pseudo-seizures Surgeries: Yes Gallbladder, Orthopedic, Tubal Ligation Respiratory: No Cardiac: No Neurological: Yes Headaches /Migraines, Seizure Disorder 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 10.0oz. 140.953203jm; 28.00 BMI Method:Stated General Appearance: No Apparent Distress, Obese HEENT: PERRL/EOMI, TMs Normal, Moist Mucous Membranes, Other (Negative solano sign, negative raccoon sign, no CSF otorrhea, no CSF rhinorrhea, no hemotympanum, no step-off or skull deformity palpated. 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 Since she has had multiple CT scans in the past and no sign of skull fracture or internal bleeding or prolonged post-ictal phase, will defer imaging tonight. She was complaining of headache so we will administer a Toradol shot to try and help from a pain and inflammation standpoint. Encourage fluids and rest. Follow-up through the clinic if needed for continued concerns and see a dentist about her teeth Departure Impression Primary Impression: Contusion of occipital region of scalp Qualified Codes: S00.03XA - Contusion of scalp, initial encounter Additional Impressions: Minor closed head injury Broken tooth due to trauma without complication Qualified Codes: S02.5XXA - Fracture of tooth (traumatic), initial encounter for closed fracture Pseudoseizures Disposition: 01 HOME, SELF-CARE Condition: Stable Departure-Patient Inst. Decision time for Depature: 19:33 Referrals: MAEVE CALZADA MD (PCP/Family) Primary Care Physician [facility] Patient Instructions: Minor Head Injury, Adult ED, Mouth and Dental Injuries in Adults Add. Discharge Instructions: Stay well hydrated and drink plenty of water. Get plenty of rest Continue on your regular medicines. [facility] the [facility]. Check with Dentist about teeth if having continued concerns Follow up with clinic for continued concerns with pseudoseizures All discharge instructions reviewed with patient and/or family. Voiced understanding. LES MCCALL MD May 15, 2021 19:31
== END 2021-05-15 19:37 | disposition home or self-care (01) ==
LOC: EDUNIT# 19:09 → ER FS 19:11
DX: S02.5XXA Fracture of tooth (traumatic), initial encounter for closed fracture (principal); S00.03XA Contusion of scalp, initial encounter; S09.90XA Unspecified injury of head, initial encounter; E66.9 Obesity, unspecified; F41.9 Anxiety disorder, unspecified; G40.909 Epilepsy, unspecified, not intractable, without status epilepticus; F32.9 Major depressive disorder, single episode, unspecified; Z68.28 Body mass index [BMI] 28.0-28.9, adult; Z79.899 Other long term (current) drug therapy; W22.8XXA Striking against or struck by other objects, initial encounter
CPT/HCPCS: 99284

== ENCOUNTER 2021-06-26 21:39 | Emergency (ER) | payer OTHER ==
[~2021-06-26] VITALS: Ht 162 cm; Wt 144.0 kg
--- NOTE | 2021-06-26 22:25 | ED General ---
General Chief Complaint: Neurological Problems Stated Complaint: SEIZURES,CP Nursing Triage Note: Pt reports she had a seizure lasting unknown time and then had chest pain. Pt has hx of seizures, denies any injury. Pt denies fever or cough. Source of Information: Patient History of Present Illness Date Seen by Provider: Jun 26, 2021 Time Seen by Provider: 22:25 Initial Comments 31-year-old female presenting from [facility]. She has a history of pseudoseizures and has been under increased stress. She reports having over 4 seizures today. Her most recent seizure this evening when she woke up on the bed and was complaining of pain to the anterior chest. She has a headache which is usual after her seizure episodes. She had no loss of bowel or bladder control. She had no laceration to her tongue or oral mucosa. She denies any fall or injury where she hit her chest. She denies cough, congestion, nausea, vomiting, change of vision, burning with urination, diarrhea. Timing/Duration: 1-3 Hours Severity: Severe Modifying Factors: worse with Movement, worse with Other (Palpation) Associated Systoms: Chest Pain (Palpation of the anterior chest wall increases her pain); No Cough, No Diaphoresis, No Fever/Chills, No Headaches, No Loss of Appetite, No Malaise, No Nausea/Vomiting, No Rash; Seizure (Reports having several seizures today); No Shortness of Air, No Syncope, No Weakness Allergies and Home Medications Allergies Coded Allergies: levetiracetam (Verified Allergy, Unknown, "goes psycho" , 08/18/20) Patient Home Medication List Home Medication List Reviewed: Yes Aripiprazole (Aripiprazole) 10 Mg Tablet, (Reported) Entered as Reported by: LETA NUNEZ on 05/17/202118 Duloxetine HCl (Duloxetine HCl) 30 Mg Capsule.dr (Reported) Entered as Reported by: LETA NUNEZ on 05/17/202118 Hydrocodone/Acetaminophen (Hydrocodone-Acetamin 5-325 mg) 1 Each Tablet, 1 TAB PO Q6H PRN for PAIN-SEVERE (8-10) Prescribed by: LES MCCALL on 08/18/201910 Ibuprofen (Ibuprofen) 800 Mg Tablet, 800 MG PO Q8H PRN for PAIN Prescribed by: LES MCCALL on 01/12/21 231 Ibuprofen (Ibuprofen) 800 Mg Tablet, 800 MG PO Q8H PRN for PAIN Prescribed by: LES MCCALL on 06/26/21 2249 Lamotrigine (Lamictal) 25 Mg Tablet, 25 MG PO DAILY, (Reported) Entered as Reported by: NATALIYA BOO on 07/31/18 0757 Levetiracetam (Keppra) 500 Mg Tablet, 500 MG PO BID Prescribed by: VICENTA BLACKWELL on 06/28/20 1045 Topiramate (Topiramate) 25 Mg Tablet, (Reported) Entered as Reported by: LETA NUNEZ on 05/17/202116 [clonazepam] , (Reported) Entered as Reported by: LETA NUNEZ on 05/17/202118 Review of Systems Review of Systems Constitutional: No chills, No fever EENTM: no symptoms reported Respiratory: no symptoms reported Cardiovascular: see HPI Gastrointestinal: no symptoms reported Genitourinary: no symptoms reported Musculoskeletal: see HPI Skin: no symptoms reported Psychiatric/Neurological: Headache; Denies Numbness, Denies Paresthesia Past Icfjwmj-Yebhuw-Nhfiri Hx Patient Social History Tobacco Use?: No Use of E-Cig and/or Vaping dev: No Substance use?: No Alcohol Use?: No Pt feels they are or have been: No Immunizations Up To Date Tetanus Booster (TDap): Unknown Influenza Vaccine Up-to-Date: No; Not Current First/Initial COVID19 Vaccinat: MAR 2020 Second COVID19 Vaccination Laurent: [employer] Third COVID19 Vaccination Date: N/A Seasonal Allergies Seasonal Allergies: No Past Medical History Surgery/Hospitalization HX: pseudo-seizures Surgeries: Yes Gallbladder, Orthopedic, Tubal Ligation Respiratory: No Cardiac: No Neurological: Yes Headaches /Migraines, Seizure Disorder Last Menstrual Period: Jun 26, 2021 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 Disorders: 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 Sexually Transmitted Disease: No HIV/AIDS: No Genitourinary: No Gastrointestinal: No Musculoskeletal: No Endocrine: No HEENT: No Cancer: No Psychosocial: Yes Anxiety, Depression Integumentary: No Blood Disorders: No Family Medical History Drug abuse 19 MOTHER, Age:46 FH: pulmonary embolism G8 BROTHER, Age:25, Onset:20's - 25 Hypertension 19 MOTHER, Age:46 Physical Exam Vital Signs Vital Signs - First Documented 06/26/21 21:45 Temp 36.5 Pulse 93 Resp 17 B/P (MAP) 130/65 (86) Pulse Ox 99 O2 Delivery Room Air Capillary Refill : Less Than 3 Seconds Height, Weight, BMI Height: 5'2.00" Weight: 310lbs. 10.0oz. 140.346068ps; 54.00 BMI Method:Stated General Appearance: No Apparent Distress, WD/WN HEENT: PERRL/EOMI, TMs Normal, Normal ENT Inspection, Pharynx Normal Neck: Full Range of Motion, Normal Inspection, Non Tender, Supple Respiratory: Lungs Clear, Normal Breath Sounds, No Accessory Muscle Use, No Respiratory Distress; No Expiration, No Inspiration, No Pleural Rub; Other (Tender to palpation on the anterior chest wall along her sternum) Cardiovascular: Regular Rate, Rhythm, Normal Peripheral Pulses Gastrointestinal: Normal Bowel Sounds, No Pulsatile Mass, Non Tender, Soft Rectal: Deferred Back: No CVA Tenderness Extremity: Normal Capillary Refill, Normal Inspection, No Calf Tenderness, No Pedal Edema Neurologic/Psychiatric: Alert, Oriented x3, No Motor/Sensory Deficits, Normal 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/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, 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 Norm as Tested Skin: Normal Color, Warm/Dry Procedures/Interventions Suture Size: 4-0 Progress/Results/Core Measures Suspected Sepsis SIRS Temperature: Pulse: 93 Respiratory Rate: 17 Blood Pressure 130 /65 Mean: 86 Results/Orders My Orders Orders - LES MCCALL MD Ekg Tracing (06/26/21 21:44) Ketorolac Injection (Toradol Injection) (06/26/21 22:46) Lorazepam Tablet (Ativan Tablet) (06/26/21 22:46) Vital Signs/I&O 06/26/21 06/26/21 21:45 23:00 Temp 36.5 Pulse 93 80 Resp 17 15 B/P (MAP) 130/65 (86) 116/62 Pulse Ox 99 99 O2 Delivery Room Air Room Air Capillary Refill : Less Than 3 Seconds Blood Pressure Mean: 86 Progress Note : Progress Note Electrocardiogram obtained and did not demonstrate any acute process with her heart. Reassured patient and will order anti-inflammatory medication to try and help with chest pain symptoms. Counseled to check with the nurse at the [facility] about possible therapist or counselor to help with her stress and anxiety. Given dose of Toradol for chest wall pain and atian for anxiety ECG Initial ECG Impression Date: Jun 26, 2021 Initial ECG Impression Time: 21:50 Initial ECG Rate: 84 Initial ECG Rhythm: Normal Sinus Initial ECG Comparisson: Unchanged Comment Normal sinus rhythm with a heart rate of [address] elevation. Low voltage precordial leads. WA interval 123 ms. QT interval 360 ms with a QTc interval 426 ms. Overall this appears similar to prior tracings in the system. Departure Impression Primary Impression: Muscle strain of anterior chest wall Additional Impressions: Pseudoseizures Stress and adjustment reaction Disposition: HOME, SELF-CARE Condition: Stable Departure-Patient Inst. Decision time for Depature: 22:47 Referrals: MAEVE CALZADA MD (PCP/Family) Primary Care Physician Patient Instructions: Costochondritis (DC), Muscle Strain ED, Stress Add. Discharge Instructions: Consider talking with a therapist or counsellor about your stress and anxiety issues that trigger your seizures. You could take Ibuprofen 800 mg every 8 hours as needed for pain and inflammation of chest wall over the next week. All discharge instructions reviewed with patient and/or family. Voiced understanding. Scripts Ibuprofen (Ibuprofen) 800 Mg Tablet 800 MG PO Q8H PRN for PAIN for 7 Days, #21 TAB 0 Refills Prov: LES MCCALL MD 06/26/21 LES MCCALL MD Jun 26, 2021 22:25
[2021-06-26] MEDS ORDERED: KETOROLAC 60 MG/2 ML VIAL IM STA (22:46)
[2021-06-26] MEDS ORDERED: LORazepam 0.5 MG (ATIVAN) TABLET PO STA (22:46)
[2021-06-26] MEDS ORDERED: IBUP-1780 PO (22:49)
[2021-06-26 23:00] VITALS: BP 116/62
== END 2021-06-26 23:00 | disposition home or self-care (01) ==
LOC: EDUNIT# 21:39 → ER FS 21:40
DX: S29.011A Strain of muscle and tendon of front wall of thorax, initial encounter (principal); F43.20 Adjustment disorder, unspecified; G40.909 Epilepsy, unspecified, not intractable, without status epilepticus; W22.8XXA Striking against or struck by other objects, initial encounter
CPT/HCPCS: 93005

== ENCOUNTER 2022-05-02 18:53 | Emergency (ER) | payer SELFPAY ==
[~2022-05-02] VITALS: Ht 157.4 cm; Wt 151.7 kg
[2022-05-02] MEDS ORDERED: LORazepam 0.5 MG (ATIVAN) TABLET PO STA (19:07)
[2022-05-02] MEDS ORDERED: PROCHLORPERAZINE 10 MG/2ML INJ (COMPAZINE) IM ONE (19:15)
[2022-05-02] MEDS ORDERED: diphenhydrAMINE 50 MG/ML INJ (BENADRYL) IM ONE (19:15)
[2022-05-02] MEDS ORDERED: KETOROLAC 15 MG/ML VIAL IM ONE (19:15)
--- NOTE | 2022-05-02 19:20 | ED General ---
General Chief Complaint: Neurological Problems Stated Complaint: SEIZURES Source of Information: Patient Exam Limitations: No Limitations History of Present Illness Date Seen by Provider: May 02, 2022 Time Seen by Provider: 18:56 Initial Comments 32-year-old female with past medical history of psychogenic nonepileptic seizures coming in as a referral from her boss due to having multiple seizures at work. 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 She states on a normal day she might have anywhere between 1-2. She takes Tegretol and Lamictal twice a day. She has not had her evening doses of these as of yet. States she has been diagnosed with bronchitis relatively recently, but no fevers, vomiting, diarrhea, or any other concerns. She does have a headache, and states that this typically happens when she has multiple nonepileptic events in a day. She typically has more "seizures" when she develops a headache. She does not endorse any new stressors in her life. The patient states that she drove here and has continued to drive as needed desp ite having these events. She states that she cannot feel the events, and she does not know when they are going to happen. Otherwise denying any other acute complaints including any falls. Allergies and Home Medications Allergies Coded Allergies: levetiracetam (Verified Allergy, Unknown, "goes psycho" , 08/18/20) Patient Home Medication List Home Medication List Reviewed: Yes Aripiprazole (Aripiprazole) 10 Mg Tablet, (Reported) Entered as Reported by: LETA NUNEZ on 05/17/202118 Duloxetine HCl (Duloxetine HCl) 30 Mg Capsule.dr (Reported) Entered as Reported by: LETA NUNEZ on 05/17/202118 Hydrocodone/Acetaminophen (Hydrocodone-Acetamin 5-325 mg) 1 Each Tablet, 1 TAB PO Q6H PRN for PAIN-SEVERE (8-10) Prescribed by: LES MCCALL on 08/18/201910 Ibuprofen (Ibuprofen) 800 Mg Tablet, 800 MG PO Q8H PRN for PAIN Prescribed by: LES MCCALL on 01/12/21 2312 Ibuprofen (Ibuprofen) 800 Mg Tablet, 800 MG PO Q8H PRN for PAIN Prescribed by: LES MCCALL on 06/26/21 224 Lamotrigine (Lamictal) 25 Mg Tablet, 25 MG PO DAILY, (Reported) Entered as Reported by: NATALIYA BOO on 07/31/18 0757 Levetiracetam (Keppra) 500 Mg Tablet, 500 MG PO BID Prescribed by: VICENTA BLACKWELL on 06/28/20 1045 Topiramate (Topiramate) 25 Mg Tablet, (Reported) Entered as Reported by: LETA NUNEZ on 05/17/202116 [clonazepam] , (Reported) Entered as Reported by: LETA NUNEZ on 05/17/202118 Review of Systems Review of Systems Constitutional: No fever EENTM: no symptoms reported Respiratory: no symptoms reported Cardiovascular: no symptoms reported Gastrointestinal: no symptoms reported Genitourinary: no symptoms reported Psychiatric/Neurological: See HPI Hematologic/Lymphatic: No Symptoms Reported Past Zrlorrv-Qbvuac-Lcecra Hx Immunizations Up To Date Tetanus Booster (TDap): Unknown First/Initial COVID19 Vaccinat: MAR 2020 Second COVID19 Vaccination Laurent: [employer] Third COVID19 Vaccination Date: N/A Seasonal Allergies Seasonal Allergies: No Past Medical History Surgery/Hospitalization HX: pseudo-seizures Surgeries: Yes Gallbladder, Orthopedic, Tubal Ligation Respiratory: No Cardiac: No Neurological: Yes Headaches /Migraines, Seizure Disorder 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 10.0oz. 140.625691sq; 54.00 BMI Method:Stated General Appearance: No Apparent Distress, WD/WN Eyes: Bilateral Eye Normal Inspection HEENT: PERRL/EOMI, Normal ENT Inspection, Pharynx Normal Neck: Full Range of Motion, Normal Inspection, Non Tender, Supple Respiratory: Chest Non Tender, Lungs Clear, Normal Breath Sounds, No Accessory Muscle Use, No Respiratory Distress Cardiovascular: Regular Rate, Rhythm, No Edema, Normal Peripheral Pulses Gastrointestinal: Normal Bowel Sounds, Non Tender, Soft; No Distended, No Guarding Back: Normal Inspection, No CVA Tenderness Extremity: Normal Capillary Refill, Normal Inspection, Normal Range of Motion, Non Tender, No Calf Tenderness, No Pedal Edema Neurologic/Psychiatric: Alert, Oriented x3, No Motor/Sensory Deficits, Normal 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/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, 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 Norm as Tested Skin: Normal Color, Warm/Dry Lymphatic: No Adenopathy Procedures/Interventions Suture Size: 4-0 Progress/Results/Core Measures Suspected Sepsis SIRS Temperature: Pulse: Respiratory Rate: Blood Pressure / Mean: Results/Orders My Orders Orders - JANE LAUGHLIN MD Lorazepam Tablet (Ativan Tablet) (05/02/22 19:07) Diphenhydramine Injection (Benadryl Inje (05/02/22 19:15) Prochlorperazine Injection (Compazine In (05/02/22 19:15) Ketorolac Injection (Toradol Injection) (05/02/22 19:15) Medications Given in ED Current Medications Medications Dose Ordered Sig/Syed Route Start Time Stop Time Status Last Admin Dose Admin Diphenhydramine HCl 12.5 mg ONCE ONCE IM 05/02/22 19:15 05/02/22 19:16 DC 05/02/22 19:20 12.5 MG Ketorolac Tromethamine 15 mg ONCE ONCE IM 05/02/22 19:15 05/02/22 19:16 DC 05/02/22 19:21 15 MG Prochlorperazine Edisylate 10 mg ONCE ONCE IM 05/02/22 19:15 05/02/22 19:16 DC 05/02/22 19:20 10 MG Vital Signs/I&O 05/02/22 05/02/22 18:57 19:21 Temp 36.7 36.7 Pulse 98 Resp 16 B/P (MAP) 129/83 (98) Pulse Ox 100 O2 Delivery Room Air Capillary Refill : Progress Note : Progress Note 32-year-old female with above history coming in due to multiple nonepileptic seizures today. She states she has had a thorough work-up at and has been diagnosed with "pseudoseizures". She states she has been taking her medications as prescribed. She is neuro intact right now with unremarkable vital signs. I will give her medications for her headache since her events tend to happen more often when she does have a headache. It was noted by staff that the patient did in fact drive herself to the ER today. I discussed with the patient that she is to not drive per [place] law until she is "seizure" free for 6 months. [place] unfortunately is not a reporting state so I am unable to do anything about her potentially continuing to drive. She does state that she has someone that can drive her home today and then coming get her car. I believe she is otherwise stable for discharge with outpatient follow-up. She was sent home with strict return precautions. Departure Impression Primary Impression: Psychogenic nonepileptic seizure Disposition: HOME, SELF-CARE Condition: Stable Departure-Patient Inst. Decision time for Depature: 20:00 Referrals: MAEVE CALZADA MD (PCP) Primary Care Physician Patient Instructions: Seizures, Adult (DC) Add. Discharge Instructions: It is [place] law to not drive if you are having seizures until you are seizure-free for 6 months. For the safety of yourself and others, please abide by this. Please follow-up with Dr. Justo Ware if things are not improving and if you continue to have more episodes as he may need to adjust her medications. For tonight, go home and get some rest and see if you feel better in the morning. Work/School Note: Work Release Form Date Seen in the Emergency Department: May 02, 2022 Return to Work: May 03, 2022 Restrictions: No Restrictions JANE LAUGHLIN MD May 02, 2022 19:20
[2022-05-02 19:29] VITALS: BP 118/71
[2022-05-02] MEDS ORDERED: Tegretol (20:20)
== END 2022-05-02 19:29 | disposition home or self-care (01) ==
LOC: EDUNIT# 18:53 → ER FS 18:55
DX: G40.909 Epilepsy, unspecified, not intractable, without status epilepticus (principal)
CPT/HCPCS: 99284

== ENCOUNTER 2022-07-23 21:27 | Emergency (ER) | payer SELFPAY ==
[~2022-07-23] VITALS: Ht 157 cm; Wt 150.0 kg
[~2022-07-23 21:27] MED LIST changes: +Tegretol
[2022-07-23] MEDS ORDERED: MELO15TA39 PO (21:50)
--- NOTE | 2022-07-23 21:50 | ED Lower Extremity ---
General Chief Complaint: Lower Extremity Stated Complaint: L FOOT PAIN Source: patient Exam Limitations: no limitations History of Present Illness Date Seen by Provider: Jul 23, 2022 Time Seen by Provider: 21:34 Initial Comments 32-year-old female with no pertinent past medical history coming in due to left foot pain. 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 She did not have any trauma or land on it funny. It just started slowly hurting over time. She took Tylenol prior to coming which did help. She is otherwise denying any other acute complaints. This is never happened before. Allergies and Home Medications Allergies Coded Allergies: levetiracetam (Verified Allergy, Unknown, "goes psycho" , 08/18/20) Patient Home Medication List Home Medication List Reviewed: Yes Lamotrigine (Lamictal) 25 Mg Tablet, 25 MG PO DAILY, (Reported) Entered as Reported by: NATALIYA BOO on 07/31/18 0757 [Tegretol] , (Reported) Entered as Reported by: JANY LINDSAY on 05/02/222019 Review of Systems Constitutional: No fever EENTM: no symptoms reported Respiratory: no symptoms reported Cardiovascular: no symptoms reported Gastrointestinal: no symptoms reported Genitourinary: no symptoms reported Musculoskeletal: see HPI Skin: no symptoms reported Psychiatric/Neurological: No Symptoms Reported Past Pzlrexr-Dckimg-Ogkydf Hx Patient Social History Substance use?: No Immunizations Up To Date Tetanus Booster (TDap): Unknown First/Initial COVID19 Vaccinat: [employer] Second COVID19 Vaccination Laurent: [employer] Third COVID19 Vaccination Date: [employer] Seasonal Allergies Seasonal Allergies: No Past Medical History Surgery/Hospitalization HX: Pseudo-seizures, Cholecystectomy, Tubal ligation, R thumb surgery Surgeries: Yes Gallbladder, Orthopedic, Tubal Ligation Respiratory: No Cardiac: No Neurological: Yes Headaches /Migraines, Seizure Disorder 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 Disorders: No 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 10.0oz. 140.607305gs; 61.00 BMI Method:Stated General Appearance: WD/WN, no apparent distress Neck: normal inspection Cardiovascular: regular rate, rhythm Respiratory: no respiratory distress Gastrointestinal: No distended Knees: bilateral knee non-tender, bilateral knee normal inspection, bilateral knee normal range of motion, bilateral knee no evidence of injury Ankles: bilateral ankle non-tender, bilateral ankle normal inspection, bilateral ankle normal range of motion, bilateral ankle no evidence of injury Feet: right foot non-tender; bilateral foot normal inspection, bilateral foot normal range of motion, bilateral foot no evidence of injury; left foot other (Pain with palpation along the left calcaneus with the insertion of the plantar fascia, no bony tenderness anywhere, normal neurovascular exam otherwise) Neurologic/Tendon: normal sensation, normal motor functions, normal tendon functions Neurologic/Psychiatric: no motor/sensory deficits, alert, normal mood/affect Skin: normal color, warm/dry Procedures/Interventions Suture Size: 4-0 Progress/Results/Core Measures Progress Progress Note : Progress Note 32-year-old female coming in due to atraumatic left foot pain. ABCs were intact and vitals were stable on presentation. Physical exam more consistent with planter fasciitis. She has no bony tenderness, x-ray therefore not ordered. Offered ibuprofen, but she does not want any other medications at this time. We will send a prescription for Mobic to her pharmacy. I believe she is otherwise stable for discharge with outpatient follow-up. She was sent home with strict return precautions. Departure Impression Primary Impression: Plantar fasciitis, left Disposition: 01 HOME, SELF-CARE Condition: Stable Departure-Patient Inst. Decision time for Depature: 21:55 Referrals: MAEVE CALZADA MD (PCP/Family) Primary Care Physician JOSE ADAMS Patient Instructions: Plantar Fasciitis Exercises, Heel Pain Caused by Plantar Fasciitis Add. Discharge Instructions: This will take quite a bit of time to get better even with stretching and physical therapy. Take the meloxicam which was prescribed for you. You can take Tylenol on top of this, but do not mix it with ibuprofen or naproxen. I also recommend icing it and were using a roller on the area to help with the pain and inflammation. You can also buy special orthotics in your shoes. The brand that works the best is called Super Feet or Power Step and typically is jose somewhere around $70. Follow-up with Keyur Adams if not improving in the next couple of days. Scripts Meloxicam (Meloxicam) 15 Mg Tablet 15 MG PO DAILY for 14 Days, #14 TAB Prov: JANE LAUGHLIN MD 07/23/22 Work/School Note: Work Release Form Date Seen in the Emergency Department: Jul 23, 2022 Return to Work: Jul 24, 2022 Restrictions: No Restrictions JANE LAUGHLIN MD Jul 23, 2022 21:50
[2022-07-23 21:57] VITALS: BP 130/66
== END 2022-07-23 21:58 | disposition home or self-care (01) ==
LOC: EDUNIT# 21:27 → ER FS 21:29
DX: M72.2 Plantar fascial fibromatosis (principal); Z28.310 Unvaccinated for COVID-19
CPT/HCPCS: 99281

== ENCOUNTER 2022-09-16 10:39 | Emergency (ER) | payer SELFPAY ==
[~2022-09-16] VITALS: Ht 157.4 cm; Wt 155.9 kg
[~2022-09-16 10:39] MED LIST changes: +MELO15TA39 PO
[2022-09-16 10:45] VITALS: BP 115/56
[2022-09-16] MEDS ORDERED: KETOROLAC 15 MG/ML VIAL IM ONE (11:00)
[2022-09-16] MEDS ORDERED: PROCHLORPERAZINE 10 MG/2ML INJ (COMPAZINE) IM ONE ×2 (11:00→11:15)
[2022-09-16] MEDS ORDERED: diphenhydrAMINE 50 MG/ML INJ (BENADRYL) IM ONE ×2 (11:00→11:15)
--- NOTE | 2022-09-16 11:06 | ED Neurological Problem ---
General Chief Complaint: Neurological Problems Stated Complaint: SOB; DIZZINESS; GODFRE[facility] Nursing Triage Note: Patient c/o having 3 seizures today and states she has been out of her seizure medication x 2 days. 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 Patient c/o Rt. sided headache and states the headache is normal for her. Patient denies any visual changes. Patient walked into ER room #6 with steady gait. Source: patient Exam Limitations: no limitations History of Present Illness Date Seen by Provider: Sep 16, 2022 Time Seen by Provider: 10:42 Initial Comments 32-year-old female with past medical history of psychogenic nonepileptic seizures coming in due to having 3 seizures today. She was at work, and her boss brought her here. She states she has been out of her seizure medicines until she gets paid tomorrow, the prescription is there, and she plans to pick it up at that point. The medicine she is missing is topiramate 100 mg every day as well as lamotrigine 200 mg every day. She has taken Keppra in the past, she states when she takes it for months on end, it can make her bipolar disorder flareup, but that she is not truly allergic to it. She states that she has a right-sided headache which is mild,, and after she has seizures. Denies any vision changes, weakness, numbness, neck stiffness, fever, or any other concerns. Allergies and Home Medications Allergies Coded Allergies: levetiracetam (Verified Allergy, Unknown, "goes psycho" , 08/18/20) Patient Home Medication List Home Medication List Reviewed: Yes Lamotrigine (Lamictal) 25 Mg Tablet, 25 MG PO DAILY, (Reported) Entered as Reported by: NATALIYA BOO on 07/31/18 0495 Meloxicam (Meloxicam) 15 Mg Tablet, 15 MG PO DAILY Prescribed by: JANE LAUGHLIN on 07/23/222149 [Tegretol] , (Reported) Entered as Reported by: JANY LINDSAY on 05/02/222019 Review of Systems Review of Systems Constitutional: No fever Eyes: No Symptoms Reported Ears, Nose, Mouth, Throat: no symptoms reported Respiratory: no symptoms reported Cardiovascular: no symptoms reported Gastrointestinal: no symptoms reported Genitourinary: no symptoms reported Musculoskeletal: no symptoms reported Skin: no symptoms reported Psychiatric/Neurological: See HPI Past Hzjfjhw-Idrvap-Avzjou Hx Patient Social History Substance use?: No Immunizations Up To Date Tetanus Booster (TDap): Unknown First/Initial COVID19 Vaccinat: [employer] Second COVID19 Vaccination Laurent: [employer] Third COVID19 Vaccination Date: [employer] Seasonal Allergies Seasonal Allergies: No Past Medical History Surgery/Hospitalization HX: Pseudo-seizures, Cholecystectomy, Tubal ligation, R thumb surgery Surgeries: Yes Gallbladder, Orthopedic, Tubal Ligation Respiratory: No Cardiac: No Neurological: Yes Headaches /Migraines, Seizure Disorder Last Menstrual Period: Sep 02, 2022 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 10.0oz. 140.994426po; 62.00 BMI Method:Stated General Appearance: WD/WN, no apparent distress HEENT: PERRL/EOMI, normal ENT inspection, pharynx normal Neck: non-tender, full range of motion, supple, normal inspection Respiratory: chest non-tender, lungs clear, normal breath sounds, no respiratory distress, no accessory muscle use Cardiovascular: regular rate, rhythm, no edema, no murmur Gastrointestinal: normal bowel sounds, non tender, soft; No distended, No guarding, No rebound Back: normal inspection, no CVA tenderness Extremities: normal range of motion, non-tender, normal inspection, no pedal edema, no calf tenderness, normal capillary refill 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 tested, no motor/sensory deficits, alert, normal mood/affect, oriented x 3 Crainal Nerves: normal hearing, normal speech Coordination/Gait: normal gait Motor/Sensory: no motor deficit, no sensory deficit Skin: normal color, warm/dry Procedures/Interventions Suture Size: 4-0 Progress/Results/Core Measures Results/Orders My Orders Orders - JANE LAUGHLIN MD Levetiracetam Tablet (Keppra Tablet) (09/16/22 11:00) Prochlorperazine Injection (Compazine In (09/16/22 11:00) Diphenhydramine Injection (Benadryl Inje (09/16/22 11:00) Ketorolac Injection (Toradol Injection) (09/16/22 11:00) Vital Signs/I&O 09/16/22 10:45 Temp 36.4 Pulse 81 Resp 18 B/P (MAP) 115/56 (75) Pulse Ox 97 O2 Delivery Room Air Blood Pressure Mean: 75 Progress Progress Note : Progress Note 32-year-old female with a history of nonepileptic seizures coming in after having seizures at work. Did not fall and hit her head, no trauma, no indication for CT head or cervical spine at this time. Patient was not postictal after, now normal and neuro intact. We unfortunately do not have the seizure medications that she takes within our facility. Given these are nonepileptic seizures, I think it would be safe for her to just spend the day at home, and fill her prescription tomorrow. I also gave her a headache cocktail with IM medications. She has no red flags including no meningismus, no fever, and overall well-appearing making meningitis unlikely. Patient well-appearing and I believe stable for discharge with outpatient follow-up. She was sent home with strict return precautions. 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 Departure Impression Primary Impression: Psychogenic nonepileptic seizure Disposition: HOME, SELF-CARE Condition: Stable Departure-Patient Inst. Decision time for Depature: 11:15 Referrals: MAEVE CALZADA MD (PCP/Family) Primary Care Physician Patient Instructions: Seizures, Adult (DC) Add. Discharge Instructions: Please be sure to fill your prescriptions for your medications tomorrow. Stay off work today and just go home to rest. The medication we gave you will help with your headache, but will also make you very sleepy which should also help with your seizures. Work/School Note: Work Release Form Date Seen in the Emergency Department: Sep 16, 2022 Return to Work: Sep 17, 2022 Restrictions: No Restrictions JANE LAUGHLIN MD Sep 16, 2022 11:06
== END 2022-09-16 11:15 | disposition home or self-care (01) ==
LOC: EDUNIT# 10:39 → ER FS 10:41
DX: R56.9 Unspecified convulsions (principal); R51.9 Headache, unspecified
CPT/HCPCS: 99284

== ENCOUNTER 2023-02-05 12:25 | Emergency (ER) | payer SELFPAY ==
[~2023-02-05] VITALS: Ht 162.5 cm; Wt 159.1 kg
[2023-02-05 12:30] VITALS: BP 147/87
--- NOTE | 2023-02-05 12:44 | ED Cough/URI ---
General Chief Complaint: COVID19 Suspect/Confirmed Stated Complaint: COVID+ | DIFFICULTY BREATHING Nursing Triage Note: Patient states she began having symptoms and tested positive for COVID-19 on Tuesday, states she began feeling short of breath last night. History of Present Illness Date Seen by Provider: Feb 05, 2023 Time Seen by Provider: 12:33 Initial Comments 32-year-old female with PMH of seizure disorder/obesity, is here with complaints of being COVID-positive and feeling breathless. Patient was found to be COVID- positive on Tuesday. Patient has associated symptoms of cough, diarrhea, congestion, postnasal drip. Denies chest pain, palpitations, fever and chills, abdominal pain. Allergies and Home Medications Allergies Coded Allergies: levetiracetam (Verified Allergy, Unknown, "goes psycho" , 08/18/20) Patient Home Medication List Home Medication List Reviewed: Yes Albuterol Sulfate (Ventolin Hfa) 1 Puff Puff, 1 PUFF INH Q4H Prescribed by: AMY MCPHERSON MD on 02/05/23 1257 Benzonatate (Tessalon Perles) 100 Mg Capsule, 100 MG PO TID Prescribed by: AMY MCPHERSON MD on 02/05/23 1257 Lamotrigine (Lamictal) 25 Mg Tablet, 25 MG PO DAILY, (Reported) Entered as Reported by: NATALIYA BOO on 07/31/18 0757 Meloxicam (Meloxicam) 15 Mg Tablet, 15 MG PO DAILY Prescribed by: JANE LAUGHLIN on 07/23/22 2150 [Tegretol] , (Reported) Entered as Reported by: JANY LINDSAY on 05/02/222019 Review of Systems Review of Systems Constitutional: see HPI Respiratory: cough, phlegm Past Tmzrdjx-Oeftcn-Jtwnpy Hx Patient Social History Tobacco Use?: No Use of E-Cig and/or Vaping dev: Yes Substance use?: No Alcohol Use?: No Pt feels they are or have been: No Immunizations Up To Date Tetanus Booster (TDap): Unknown First/Initial COVID19 Vaccinat: [employer] Second COVID19 Vaccination Laurent: [employer] Third COVID19 Vaccination Date: [employer] Seasonal Allergies Seasonal Allergies: No Past Medical History Surgery/Hospitalization HX: seizures Surgeries: Yes Gallbladder, Orthopedic, Tubal Ligation Respiratory: No Cardiac: No Neurological: Yes Headaches /Migraines, Seizure Disorder 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 10.0oz. 140.080072kt; 60.00 BMI Method:Stated General Appearance: WD/WN, no apparent distress, obese HEENT: PERRL/EOMI, normal ENT inspection Neck: non-tender, full range of motion Respiratory: lungs clear, normal breath sounds, no respiratory distress Cardiovascular: regular rate, rhythm Gastrointestinal: non tender, soft Neurologic/Psychiatric: alert, oriented x 3 Skin: normal color Procedures/Interventions Suture Size: 4-0 Progress/Results/Core Measures Suspected Sepsis SIRS Temperature: Pulse: 109 Respiratory Rate: 26 Blood Pressure 147 /87 Mean: 107 Results/Orders Vital Signs/I&O 02/05/23 02/05/23 12:30 12:30 Temp 36.1 Pulse 109 Resp 26 B/P (MAP) 147/87 (107) Pulse Ox 100 O2 Delivery Room Air Room Air Capillary Refill : Less Than 3 Seconds Blood Pressure Mean: 107 Progress Note : Progress Note 1. COVID-19: - Pt tested positive a few days ago - Quarantine methods discussed. - Vitals have been stable in the ER - O2 saturation is 100% on room air. - Prescription given for Tessalon Perles: Take every 8 hours as needed for cough. -Prescription given for albuterol inhaler; 1 puff every 4-6 hours as needed for shortness of breath -Advised [id number] Tylenol cold and flu as needed for symptoms, vitamin C and zinc, vitamin D -Adequate hydration advised -Follow-up with PCP in 7 days, as needed -The patient was seen in the ED, and treated appropriately to presentation at a specific point in time. Patient is informed that there is a possibility that disease and illness can evolve and change in acuity rapidly or slowly after patient is discharged from the ER. Precautionary advice given to the patient for immediate return to ER if symptoms worsen or do not resolve, and to seek emergency care sooner rather than later. Pt also advised on the importance of PCP follow up and compliance with management and follow up plan with PCP and/or specialist, as this is part of the management plan. Pt verbally expressed understanding. Departure Impression Primary Impression: COVID-19 Disposition: 01 HOME, SELF-CARE Condition: Stable Departure-Patient Inst. Referrals: FAHEEM JULES APRN (PCP/Family) Primary Care Physician Patient Instructions: COVID-19 Home Care/Discharge, Prone Position Add. Discharge Instructions: - Prescription given for Tessalon Perles: Take every 8 hours as needed for cough. -Prescription given for albuterol inhaler; 1 puff every 4-6 hours as needed for shortness of breath -Advised [id number] Tylenol cold and flu as needed for symptoms, vitamin C and zinc, vitamin D -Adequate hydration advised -Follow-up with PCP in 7 days, as needed All discharge instructions reviewed with patient and/or family. Voiced understanding. Scripts Benzonatate (TESSALON PERLES) 100 Mg Capsule 100 MG PO TID for 5 Days, #20 CAP Prov: AMY MCPHERSON MD 02/05/23 Albuterol Sulfate (VENTOLIN HFA) 1 Puff Puff 1 PUFF INH Q4H for Shortness of Breath for 7 Days, #1 EA 1 PUFF = 90 MCG Prov: AMY MCPHERSON MD 02/05/23 AMY MCPHERSON MD Feb 05, 2023 12:44
[2023-02-05] MEDS ORDERED: RT-ALBUINH INH (12:57)
[2023-02-05] MEDS ORDERED: BENZ100C18 PO (12:57)
== END 2023-02-05 12:59 | disposition home or self-care (01) ==
LOC: EDUNIT# 12:25 → ER FS 12:28
DX: U07.1 COVID-19 (principal); R05.9 Cough, unspecified; R06.00 Dyspnea, unspecified; E66.9 Obesity, unspecified; F17.290 Nicotine dependence, other tobacco product, uncomplicated; Z68.44 Body mass index [BMI] 60.0-69.9, adult
CPT/HCPCS: 99281